=== PATIENT | female | born 1985 | race Caucasian/White ===

== ENCOUNTER 2018-02-15 18:33 | Emergency (ER) | payer MEDICAID, SELFPAY ==
[2018-02-15 18:42] VITALS: BP 138/81; PULSE 109; RESP 16; TEMP 36.9; O2SAT 7
[2018-02-15] MEDS: Doxycycline Hyclate 100 MG CAP PO (19:53)
--- NOTE | 2018-02-15 19:59 | ED.GENADUL_ITS ---
Disposition Clinical Impression: Abscess and cellulitis of right forearm Disposition: HOME Condition: Stable Instructions: Cellulitis (ED), Abscess (ED) Additional Instructions: Return immediately if you do not show signs of improvement over the next 48 hours or if you begin running high fevers or have significant worsening of symptoms. Otherwise if you not having worsening of symptoms but have not shown full improvement by the end of your antibiotics please follow-up with your primary care provider for reassessment. Take your antibiotics until fully completed. Prescriptions: Doxycycline [Vibramycin] 100 mg PO BID #14 cap Referrals: Lesley Grace [Primary Care Provider] - 1 week (If not improving at time of completion of antibiotics follow-up with your primary care provider for reassessment.) Medical Decision Making - Medical Decision Making Patient presenting to the emergency department for complaints of redness and swelling to right forearm. Visualization of this area shows a indurated erythematous warm area that is approximately 3 cm in diameter with surrounding mild erythema. This is concerning for abscess with associated cellulitis and patient has given history of MRSA. Bedside ultrasound was utilized and small area of fluid collection just beneath the skin was seen and I do feel that drainage of this area is warranted. Area is very small not deep and does not appear inoculated and so I feel that 18-gauge needle drainage is appropriate. Did discuss with patient risks versus benefits of I&D and she agreed to having procedure performed. Skin was anesthetized with 2% lidocaine and 1.5 mL's were injected locally. Once appropriate anesthetic level was achieved skin was re- scrubbed with Betadine and 18-gauge of was placed into highest area of fluctuance. Patient had minimal purulence with blood noted no ability to express any further pus which was expected given only small area seen underneath the skin. Patient tolerated procedure appropriately with minimal drainage and no complications noted. Patient placed upon doxycycline for MRSA coverage and Bactrim not used because patient has been on Bactrim multiple times in the past for similar issues and also is on lisinopril and to make because elevated potassium. Patient was encouraged to return if not showing signs of improvement over 48 hours otherwise to follow-up with her primary care provider if not improved at the end of anabolic therapy. Patient prescribed 1 week of antibiotics. After discussion of diagnosis and plan of care with patient patient agreed and stated no further needs, questions, or concerns at this time. History of Present Illness - General Chief complaint: RashLesion Stated complaint: UNKNOWN Time Seen by Provider: 02/15/18 19:34 Source: patient, RN notes reviewed Mode of arrival: ambulatory Limitations: no limitations - History of Present Illness Initial comments: Patient reports 2 days ago she noticed a reddened area just above her right elbow. She states that she has previously had cellulitis and abscess with MRSA. She denies any injury or trauma to this area, any weeping or drainage, any fever or chills. She does state over the past 24 hours she has noted secondary redness spreading around the initial area. Onset/Timin -: days(s) Location: right, upper extremity Severity scale (1-10): 7 Quality: burning, aching Consistency: constant Improves with: none Worsens with: none Associated Symptoms: denies other symptoms Treatments Prior to Arrival: none - Related Data Lisinopril 40 mg PO DAILY 01/22/13 Metoprolol CR [Toprol Xl] 1 tab PO DAILY 01/21/14 Omeprazole 2 tab PO DAILY 04/12/14 Clonazepam [Klonopin] 2 mg PO PRN PRN tab-cap 11/04/14 Prochlorperazine Maleate 10 mg PO Q8H PRN #90 tab-cap 11/04/14 Ibuprofen 600 mg PO Q6H PRN #20 tablet 10/19/17 DULoxetine [Cymbalta] 30 mg PO DAILY 11/09/17 Thiamine Mononitrate [Vitamin B-1] 100 mg PO DAILY 11/09/17 Doxycycline [Vibramycin] 100 mg PO BID #14 cap 02/15/18 Allergies Allergy/AdvReac Type Severity Reaction Status Date / Time hydrocodone bitartrate AdvReac increases Unverified 02/15/18 18:45 [From Vicodin] Resp rate Review of Systems Constitutional: denies: chills, fever Respiratory: no symptoms reported Cardiovascular: denies: chest pain Skin: as per HPI Comment: All other systems reviewed and negative Past Medical History - Past Medical History Medical history: asthma, GERD, hypertension Migraines Surgical history: bilateral tubal ligation, hysterectomy, other (uterine ablation for endometriosis) Family history: cancer, diabetes, hypertension - Social History Smoking status: current everyday smoker Alcohol use: rarely Drug use: none Living Situation: lives with family General Exam - General Limitations: no limitations General appearance: alert, in no apparent distress - Respiratory Respiratory exam: Absent: respiratory distress - Cardiovascular Cardiovascular Exam: Present: regular rate, normal rhythm - Expanded Upper Extremity Exam Right Shoulder Exam: Present: normal inspection, full ROM Upper Arm exam: Present: full ROM, tenderness (To palpation of area of redness) , erythema (Patient has area of indurated erythema to the posterior aspect of the right upper arm with surrounding mild erythema.) Elbow exam: Present: full ROM Forearm Wrist exam: Present: normal inspection, full ROM Course Vital Signs - 24 hr 02/15/18 18:42 Temperature 36.9 C Pulse 109 H Respiratory 16 Rate Blood Pressure 138/81 Pulse Oximetry 7 L
== END 2018-02-15 20:19 | disposition home or self-care (01) ==
PROVIDERS: Emergency Provider Physician Assistant; PCP Nurse Practitioner Family
DX: L02.413 Cutaneous abscess of right upper limb (principal); L03.113 Cellulitis of right upper limb; Z86.14 Personal history of Methicillin resistant Staphylococcus aureus infection; I10 Essential (primary) hypertension
CPT/HCPCS: 10160; 99283

== ENCOUNTER 2018-03-05 08:07 | Emergency (ER) | payer MEDICAID, SELFPAY ==
[2018-03-05] VITALS (33 sets, daily range): BP systolic 124–139; BP diastolic 84–125; PULSE 63–90; RESP 16; TEMP 36.7; O2SAT 93–98
[2018-03-05] MEDS: Lactated Ringers 500 ML IV (09:02)
[2018-03-05] MEDS: Ketorolac 15 MG/ML VIAL IVP (09:02)
[2018-03-05] MEDS: diphenhydrAMINE 50 MG/ML VIAL 25 MG IVP (10:24)
[2018-03-05] MEDS: Prochlorperazine 10 MG/2 ML VIAL IVP (10:25)
--- NOTE | 2018-03-05 11:23 | ED.GENADUL_ITS ---
Disposition Clinical Impression: Headache Disposition: HOME Instructions: General Headache (ED) Additional Instructions: Please follow-up with your primary care physician and neurology. Return to the emergency department immediately for any worsening or new concerning symptoms. Referrals: Lesley Grace [Primary Care Provider] - Tiffani Benton MD [ [facility] STAFF PHYSICIAN] - Medical Decision Making - Medical Decision Making 9:30 --33-year-old female with history of chronic migraines, here with headache consistent with prior severe migraines. Neuro intact. Plan to give Toradol, Compazine and Benadryl. Patient refused Compazine and Benadryl. Will treat initially with Toradol and reassess. 10:30 --patient reassessed after Toradol and notes no significant relief of pain. Patient declines occipital block. Patient agreeable to Compazine and Benadryl. 12:20 --patient reassessed and notes complete resolution of symptoms. Headache resolved. Vision normal. Feels much better and is requesting discharge. Patient advised to follow-up with neurology and to return here should she have any worsening or new concerning symptoms. Patient verbalized understanding of discharge instructions. History of Present Illness - General Chief complaint: Headache Stated complaint: HEADACHE Time Seen by Provider: 03/05/18 08:35 Source: patient, RN notes reviewed Mode of arrival: ambulatory Limitations: no limitations - History of Present Illness Initial comments: 33-year-old female with multiple medical problems including chronic intermittent headaches, borderline personality disorder, anxiety depression, presents with chief complaint of headache. Headache is typical of chronic intermittent migraines. Headache is severe. Headache persisted for 3 weeks. Headache localized diffusely but worse on the left side. No associated numbness or weakness. No neck stiffness or pain. No fevers. She does note that her left face about her eye feels swollen today and that she has had some blurred vision in that eye. - Related Data Lisinopril 40 mg PO DAILY 01/22/13 Metoprolol CR [Toprol Xl] 1 tab PO DAILY 01/21/14 Omeprazole 2 tab PO DAILY 04/12/14 Clonazepam [Klonopin] 2 mg PO PRN PRN tab-cap 11/04/14 Prochlorperazine Maleate 10 mg PO Q8H PRN #90 tab-cap 11/04/14 Ibuprofen 600 mg PO Q6H PRN #20 tablet 10/19/17 DULoxetine [Cymbalta] 30 mg PO DAILY 11/09/17 Thiamine Mononitrate [Vitamin B-1] 100 mg PO DAILY 11/09/17 Allergies Allergy/AdvReac Type Severity Reaction Status Date / Time hydrocodone bitartrate AdvReac increases Unverified 02/15/18 18:45 [From Vicodin] Resp rate Review of Systems Constitutional: denies: chills, fever Eyes: as per HPI. denies: eye pain Cardiovascular: denies: chest pain Gastrointestinal: denies: abdominal pain Neurological: headache Past Medical History - Past Medical History Medical history: asthma, GERD, hypertension Migraines Surgical history: bilateral tubal ligation, hysterectomy, other (uterine ablation for endometriosis) Family history: cancer, diabetes, hypertension - Social History Alcohol use: none Drug use: none General Exam - General Limitations: no limitations General appearance: alert, in no apparent distress - Eye Eye exam: Present: PERRL, EOMI, periorbital swelling (Mild left) - ENT ENT exam: Present: normal orophraynx, mucous membranes dry, mucous membranes moist - Neck Neck exam: Absent: meningismus - Respiratory Respiratory exam: Present: normal lung sounds bilaterally - Cardiovascular Cardiovascular Exam: Present: regular rate, normal rhythm, normal heart sounds - GI/Abdominal GI/Abdominal exam: Present: soft. Absent: distended, tenderness - Neurological Exam Neurological exam: Present: alert, CN II-XII intact. Absent: altered, motor sensory deficit - Psychiatric Psychiatric exam: Present: anxious - Skin Skin exam: Present: warm, dry, intact Course Vital Signs - 24 hr 03/05/18 08:18 Temperature 36.7 C Pulse 90 Respiratory 16 Rate Blood Pressure 126/106 Pulse Oximetry 95
== END 2018-03-05 12:30 | disposition home or self-care (01) ==
PROVIDERS: Emergency Provider Student in an Organized Health Care Education/Training Program; PCP Nurse Practitioner Family
DX: R51 Headache (principal); H53.8 Other visual disturbances; I10 Essential (primary) hypertension
CPT/HCPCS: 96361; 96374; 96375; 99284; J0780; J1200; J1885

== ENCOUNTER 2018-05-10 13:23 | Outpatient (RCR) | payer MEDICAID, SELFPAY ==
--- NOTE | 2018-05-10 13:24 | COCO.CNN ---
Primary Reason for Visit Financial (loss of a job) Referral to Care Coordination Referral to Care Coordination: Yes Type: Other ([facility]hab, [facility]) Referral to Services: No - Referral From Referral From: Self Care Plan - Plan of Care Assessment/Background: Aydee came into the office becasue she is strugging with lossing her job. I encouraged her to go to [facility] and update her information there. I will reach out to Rosendo Ramsay and see if he will see her boys. SHe is activly working with Rosangela at [facility]. We spent about 60 minutes talking about what is going on in her life. Plan of Care: as needed and I will call with avalible therapist SMORTIZ Self Management Plan Complete?: Yes (action plan ) At this Visit: [place] [facility], [employer]
--- NOTE | 2018-05-10 13:30 | PDOC.CNN_ITS ---
Primary Reason for Visit Financial (loss of a job) Referral to Care Coordination Referral to Care Coordination: Yes [facility], [facility]) Referral to Services: No - Referral From Referral From: Self Care Plan - Plan of Care Assessment/Background: Aydee came into the office becasue she is strugging with lossing her job. I encouraged her to go to [facility] and update her information there. I will reach out to Rosendo Ramsay and see if he will see her boys. SHe is activly working with Rosangela at [facility]. We spent about 60 minutes talking about what is going on in her life. Plan of Care: as needed and I will call with avalible therapist SMORTIZ Self Management Plan Complete?: Yes (action plan ) At this Visit: [place] [facility], [employer]
== END 2018-06-07 23:59 | disposition home or self-care (01) ==
LOC: COCO 13:23
PROVIDERS: PCP Nurse Practitioner Family; Visit Provider Nurse Practitioner Family
DX: R69 Illness, unspecified (principal)

== ENCOUNTER 2018-05-23 16:47 | Emergency (ER) | payer MEDICAID, SELFPAY ==
[2018-05-23 16:50] VITALS: BP 165/101; PULSE 99; RESP 16; TEMP 36.6; O2SAT 100
--- NOTE | 2018-05-23 17:02 | W.ED.GENAD ---
Discharge Plan Disposition Patient Disposition: HOME Condition: Stable Discharge Details Chief Complaint: Allergic Clinical Impression: Facial swelling Primary Care Provider: Lesley Grace ED Provider: Gilbert Alvarez Home Meds and New Rx's Prescriptions: New prednisone 20 mg tablet 60 mg PO DAILY 5 Days Qty: 15 RF: 0 Continue clonazepam [Klonopin] 0.5 MG tablet 2 mg PO PRN PRNRF: 0 prochlorperazine maleate 10 MG tablet 10 mg PO Q8H PRN Qty: 90 RF: 6 lisinopril 10 MG tablet 40 mg PO DAILY RF: 0 metoprolol succinate 50 MG tablet extended release 24 hr 1 tab PO DAILY RF: 0 omeprazole 20 MG capsule,delayed release(DR/EC) 2 tab PO DAILY RF: 0 thiamine mononitrate (vit B1) [Vitamin B-1 (mononitrate)] 100 MG tablet 100 mg PO DAILY RF: 0 diphenhydramine HCl 25 mg Tablet 25 mg PO Q4H PRNRF: 0 ibuprofen 600 MG tablet 600 mg PO Q6H PRN (Reason: Pain) Qty: 20 RF: 0 Discharge Instructions Additional Instructions: continue to take benadryl as needed, follow dosing instructions on packaging follow up with your primary care provider to discuss if you should have self pay specialist referral if you have persistent vomit or severe difficulty breathing return to the emergency department Medical Decision Making Pt states her face became diffusely swollen last night, has been taking benadryl and swelling impvored and came here today to have it evaluated as she states she couldn't get in to see pcp. She has mild swelling bilateral periorbits and of cheeks, normal posterior oropharynx with midline uvula and no respiratory or gi symptoms. She is not aware of any new meds or detergents. No evidence of anaphylaxis, is swallowing and speaking in full sentences. Will start her on prednisone, advised f/u with pcp and return precatuions given. Normal extraoculars without pain so doubt orbital cellulitis Differential Diagnosis local skin reaction, allergic reaction HPI General Mode of arrival: ambulatory. Date/Time Provider Initiated Documentation: 05/23/18 16:50. Limitations to Documentation: no limitations. Information obtained by: patient. History of Present Illness 33 year old F presents to the emergency department with the chief complaint of face swelling, described as moderate, and is localized to the face. Patient reports no radiation. Patient started experiencing this day(s) (1) and it has been other (improving). Patient notes no other symptoms.. Patient did receive the following treatments prior to arrival, other (benadryl) Related Data Home Medications Medication Instructions Recorded Confirmed lisinopril 40 mg PO DAILY 01/22/13 05/23/18 metoprolol succinate 1 tab PO DAILY 01/21/14 05/23/18 omeprazole 2 tab PO DAILY 04/12/14 05/23/18 clonazepam [Klonopin] 2 mg PO PRN PRN tab-cap 11/04/14 05/23/18 prochlorperazine maleate 10 mg PO Q8H PRN #90 tab-cap 11/04/14 05/23/18 ibuprofen 600 mg PO Q6H PRN #20 tablet 10/19/17 05/23/18 thiamine mononitrate (vit B1) 100 mg PO DAILY 11/09/17 05/23/18 [Vitamin B-1 (mononitrate)] diphenhydramine HCl 25 mg PO Q4H PRN 05/23/18 05/23/18 prednisone 60 mg PO DAILY 5 Days #15 tab 05/23/18 Previous Rx's Medication Instructions Recorded ibuprofen 600 mg PO Q6H PRN #20 tablet 10/19/17 prednisone 60 mg PO DAILY 5 Days #15 tab 05/23/18 Allergies Allergy/AdvReac Type Severity Reaction Status Date / Time hydrocodone bitartrate AdvReac increases Unverified 05/23/18 16:54 [From Vicodin] Resp rate General Stated Complaint: Allergic PIYUSH: 3 Review of Systems Review of Systems All systems reviewed & are unremarkable except as noted in HPI and below Constitutional Denies chills and Denies fever(s) Eyes Denies loss of vision ENT Denies change in voice Cardiovascular Denies chest pain and Denies dyspnea Respiratory Denies dyspnea Gastrointestinal Denies abdominal pain, Denies nausea and Denies vomiting Genitourinary Denies dysuria Musculoskeletal Denies joint swelling Integumentary/Breasts Denies rash Neurologic Denies loss of vision Allergic/Immunologic Denies urticaria PFSH Family History Mother Diabetes Headache Father Headache Sister Headache Son Headache Medical History Asthma Borderline personality disorder Depression GERD (gastroesophageal reflux disease) HTN (hypertension) MRSA (methicillin resistant staph aureus) culture positive Migraine PTSD (post-traumatic stress disorder) Social History Smoking/Tobacco Use Status: Former Tobacco Use Surgical History Endometrial Ablation (~2009) Ligation of fallopian tube Tonsillectomy and adenoidectomy repair of r hand laceration Exam Const General: no acute distress Orientation: alert [facility] Head: normocephalic Ears: external ears normal General nose exam: external nose normal Mouth: moist mucous membranes Eyes General: appearance normal, both eyes and all related structures Neck Neck: normal visual inspection Resp Effort & Inspection: normal respiratory effort and able to speak in complete sentences Cardio Rate: regular rate Skin General skin exam: no rashes or lesions noted Neuro General: alert and oriented x3 Extrem General: normal to inspection Psych Mental Status: mental status grossly normal Course Vital Signs Temperature 36.6 C 05/23/18 16:50 Pulse 99 H 05/23/18 16:50 Respiratory Rate 16 05/23/18 16:50 Blood Pressure 165/101 H 05/23/18 16:50 Pulse Oximetry 100 05/23/18 16:50 Temperature 36.6 C 05/23/18 16:50 Temperature Source Temporal Artery Scan 05/23/18 16:50 Pulse 99 H 05/23/18 16:50 Respiratory Rate 16 05/23/18 16:50 Respiratory Effort Non-Labored 05/23/18 16:52 Blood Pressure 165/101 H 05/23/18 16:50 Blood Pressure Position Sitting 05/23/18 16:50 Pulse Oximetry 100 05/23/18 16:50 Oxygen Delivery Method Room Air 05/23/18 16:50 Oxygen Flow Rate 0 05/23/18 16:50 Pain Level 10 05/23/18 16:50
--- NOTE | 2018-05-23 17:08 | ED.GENADUL_ITS ---
Discharge Plan Disposition Patient Disposition: HOME Condition: Stable Discharge Details Chief Complaint: Allergic Clinical Impression: Facial swelling Primary Care Provider: Lesley Grace ED Provider: Gilbert Alvarez Home Meds and New Rx's Prescriptions: New prednisone 20 mg tablet 60 mg PO DAILY 5 Days Qty: 15 RF: 0 Continue clonazepam [Klonopin] 0.5 MG tablet 2 mg PO PRN PRNRF: 0 prochlorperazine maleate 10 MG tablet 10 mg PO Q8H PRN Qty: 90 RF: 6 lisinopril 10 MG tablet 40 mg PO DAILY RF: 0 metoprolol succinate 50 MG tablet extended release 24 hr 1 tab PO DAILY RF: 0 omeprazole 20 MG capsule,delayed release(DR/EC) 2 tab PO DAILY RF: 0 thiamine mononitrate (vit B1) [Vitamin B-1 (mononitrate)] 100 MG tablet 100 mg PO DAILY RF: 0 diphenhydramine HCl 25 mg Tablet 25 mg PO Q4H PRNRF: 0 ibuprofen 600 MG tablet 600 mg PO Q6H PRN (Reason: Pain) Qty: 20 RF: 0 Discharge Instructions Additional Instructions: continue to take benadryl as needed, follow dosing instructions on packaging follow up with your primary care provider to discuss if you should have piercer referral if you have persistent vomit or severe difficulty breathing return to the emergency department Medical Decision Making Pt states her face became diffusely swollen last night, has been taking benadryl and swelling impvored and came here today to have it evaluated as she states she couldn't get in to see pcp. She has mild swelling bilateral periorbits and of cheeks, normal posterior oropharynx with midline uvula and no respiratory or gi symptoms. She is not aware of any new meds or detergents. No evidence of anaphylaxis, is swallowing and speaking in full sentences. Will start her on prednisone, advised f/u with pcp and return precatuions given. Normal extraoculars without pain so doubt orbital cellulitis Differential Diagnosis local skin reaction, allergic reaction HPI General Mode of arrival: ambulatory . Date/Time Provider Initiated Documentation: 05/23/18 16:50 . Limitations to Documentation: no limitations . Information obtained by: patient . History of Present Illness 33 year old F presents to the emergency department with the chief complaint of face swelling, described as moderate, and is localized to the face. Patient reports no radiation. Patient started experiencing this day(s) (1) and it has been other (improving). Patient notes no other symptoms.. Patient did receive the following treatments prior to arrival, other (benadryl ) Related Data Home Medications Medication Instructions Recorded Confirmed lisinopril 40 mg PO DAILY 01/22/13 05/23/18 metoprolol succinate 1 tab PO DAILY 01/21/14 05/23/18 omeprazole 2 tab PO DAILY 04/12/14 05/23/18 clonazepam [Klonopin] 2 mg PO PRN PRN tab-cap 11/04/14 05/23/18 prochlorperazine maleate 10 mg PO Q8H PRN #90 tab-cap 11/04/14 05/23/18 ibuprofen 600 mg PO Q6H PRN #20 tablet 10/19/17 05/23/18 thiamine mononitrate (vit B1) 100 mg PO DAILY 11/09/17 05/23/18 [Vitamin B-1 (mononitrate)] diphenhydramine HCl 25 mg PO Q4H PRN 05/23/18 05/23/18 prednisone 60 mg PO DAILY 5 Days #15 tab 05/23/18 Previous Rx's Medication Instructions Recorded ibuprofen 600 mg PO Q6H PRN #20 tablet 10/19/17 prednisone 60 mg PO DAILY 5 Days #15 tab 05/23/18 Allergies Allergy/AdvReac Type Severity Reaction Status Date / Time hydrocodone bitartrate AdvReac increases Unverified 05/23/18 16:54 [From Vicodin] Resp rate General Stated Complaint: Allergic PIYUSH: 3 Review of Systems Review of Systems All systems reviewed & are unremarkable except as noted in HPI and below Constitutional Denies chills and Denies fever(s) Eyes Denies loss of vision ENT Denies change in voice Cardiovascular Denies chest pain and Denies dyspnea Respiratory Denies dyspnea Gastrointestinal Denies abdominal pain, Denies nausea and Denies vomiting Genitourinary Denies dysuria Musculoskeletal Denies joint swelling Integumentary/Breasts Denies rash Neurologic Denies loss of vision Allergic/Immunologic Denies urticaria PFSH Family History Mother Diabetes Headache Father Headache Sister Headache Son Headache Medical History Asthma Borderline personality disorder Depression GERD (gastroesophageal reflux disease) HTN (hypertension) MRSA (methicillin resistant staph aureus) culture positive Migraine PTSD (post-traumatic stress disorder) Social History Smoking/Tobacco Use Status: Former Tobacco Use Surgical History Endometrial Ablation (~2009) Ligation of fallopian tube Tonsillectomy and adenoidectomy repair of r hand laceration Exam Const General: no acute distress Orientation: alert [facility] Head: normocephalic Ears: external ears normal General nose exam: external nose normal Mouth: moist mucous membranes Eyes General: appearance normal, both eyes and all related structures Neck Neck: normal visual inspection Resp Effort & Inspection: normal respiratory effort and able to speak in complete sentences Cardio Rate: regular rate Skin General skin exam: no rashes or lesions noted Neuro General: alert and oriented x3 Extrem General: normal to inspection Psych Mental Status: mental status grossly normal Course Vital Signs Temperature 36.6 C 05/23/18 16:50 Pulse 99 H 05/23/18 16:50 Respiratory Rate 16 05/23/18 16:50 Blood Pressure 165/101 H 05/23/18 16:50 Pulse Oximetry 100 05/23/18 16:50 Temperature 36.6 C 05/23/18 16:50 Temperature Source Temporal Artery Scan 05/23/18 16:50 Pulse 99 H 05/23/18 16:50 Respiratory Rate 16 05/23/18 16:50 Respiratory Effort Non-Labored 05/23/18 16:52 Blood Pressure 165/101 H 05/23/18 16:50 Blood Pressure Position Sitting 05/23/18 16:50 Pulse Oximetry 100 05/23/18 16:50 Oxygen Delivery Method Room Air 05/23/18 16:50 Oxygen Flow Rate 0 05/23/18 16:50 Pain Level 10 05/23/18 16:50
[2018-05-23 17:13] VITALS: BP 160/98; PULSE 99; RESP 16; TEMP 36.6; O2SAT 100
== END 2018-05-23 17:14 | disposition home or self-care (01) ==
PROVIDERS: Emergency Provider Emergency Medicine; PCP Nurse Practitioner Family
DX: R22.0 Localized swelling, mass and lump, head (principal); I10 Essential (primary) hypertension
CPT/HCPCS: 99283

== ENCOUNTER 2018-06-21 10:28 | Emergency (ER) | payer MEDICAID, SELFPAY ==
[2018-06-21 10:48] VITALS: PULSE 124; RESP 18; TEMP 36.2; O2SAT 98
--- NOTE | 2018-06-21 11:06 | W.ED.GENAD ---
Discharge Plan Disposition Patient Disposition: HOME Discharge Details Chief Complaint: Allergic Clinical Impression: Urticaria Primary Care Provider: Lesley Grace ED Provider: Magy Lozano Home Meds and New Rx's Prescriptions: New prednisone 20 mg tablet 40 mg PO DAILY Qty: 8 RF: 0 Continued clonazepam [Klonopin] 0.5 MG tablet 2 mg PO PRN PRNRF: 0 prochlorperazine maleate 10 MG tablet 10 mg PO Q8H PRN Qty: 90 RF: 6 lisinopril 10 MG tablet 40 mg PO DAILY RF: 0 metoprolol succinate 50 MG tablet extended release 24 hr 1 tab PO DAILY RF: 0 omeprazole 20 MG capsule,delayed release(DR/EC) 2 tab PO DAILY RF: 0 thiamine mononitrate (vit B1) [Vitamin B-1 (mononitrate)] 100 MG tablet 100 mg PO DAILY RF: 0 diphenhydramine HCl 25 mg Tablet 25 mg PO Q4H PRNRF: 0 ibuprofen 600 MG tablet 600 mg PO Q6H PRN (Reason: Pain) Qty: 20 RF: 0 Discharge Instructions Instructions: Urticaria (ED) Additional Instructions: Encourage hydration. You may try hydrocortisone cream to help with itch. Please take steroids daily as prescribed. Please follow-up with primary care next week if symptoms persist. If you develop shortness of breath, wheezing, difficulty breathing, swelling of the throat or other new/worsening symptoms please seek care urgently once again Referrals: Lesley Grace [Primary Care Provider] - Medical Decision Making Patient is 33-year-old female history of asthma, hypertension, GERD, migraines, PTSD, borderline personality disorder. Patient is also had multiple issues with skin eruptions historically. She is presenting today with chief complaint of urticarial rash initially began 3 days ago. States that the rashes been migratory predominantly on face, chest, under the breast and a bilateral upper extremities. Rash is blanchable. Reports this is very itchy. Has been taking Benadryl without relief. Denies any shortness of breath or difficulty breathing. Feels that my tongue is swollen. No new exposures that she is aware of. She does have upcoming allergy testing at [facility] for previous skin eruptions and persistent issues with the skin on her hands On exam, the patient has appears consistent with an urticarial rash on the face, anterior neck, chest, upper extremities. This does seem to spare her back and lower extremities as well as her abdomen. Patient does appear excoriated and is clearly itching while I am in the room with her. She has been endorsing some tongue swelling but I am unable to appreciate this on exam. I not see any swelling of the posterior oropharynx. She is breathing unlabored. No wheezes or stridor. Lung sounds are clear. Has a symptoms have been ongoing over the past 3 days despite [id number] management, plan to treat the patient with steroids. She has been on steroids previously for skin issues but states that she has not been on steroids in the past several months. Advised hydrocortisone cream to help with itching. We discussed new/worsening symptoms and when to seek care urgently once again. I advised she keep her upcoming allergy testing. I also advised follow-up with primary care if symptoms are not improving. All of her questions and concerns were addressed and she is in agreement this plan HPI General Mode of arrival: ambulatory. Date/Time Provider Initiated Documentation: 06/21/18 10:59. Limitations to Documentation: no limitations. Information obtained by: patient. History of Present Illness 33 year old F presents to the emergency department with the chief complaint of hives, described as severe and similar to prior episodes, with intensity rated at 10. Quality is described as other (itching), and is localized to the face, neck, chest, abdomen, left, right and upper extremity. Patient started experiencing this day(s) and it has been constant. No relieving factors improve symptom(s), No exacerbating factors reported . Patient notes rash; denies chest pain, cough, fever/chills, headaches, loss of appetite and nausea/vomiting. Patient did receive the following treatments prior to arrival, other (Benadryl) Related Data Home Medications Medication Instructions Recorded Confirmed lisinopril 40 mg PO DAILY 01/22/13 05/23/18 metoprolol succinate 1 tab PO DAILY 01/21/14 05/23/18 omeprazole 2 tab PO DAILY 04/12/14 05/23/18 clonazepam [Klonopin] 2 mg PO PRN PRN tab-cap 11/04/14 05/23/18 prochlorperazine maleate 10 mg PO Q8H PRN #90 tab-cap 11/04/14 05/23/18 ibuprofen 600 mg PO Q6H PRN #20 tablet 10/19/17 05/23/18 thiamine mononitrate (vit B1) 100 mg PO DAILY 11/09/17 05/23/18 [Vitamin B-1 (mononitrate)] diphenhydramine HCl 25 mg PO Q4H PRN 05/23/18 05/23/18 prednisone 40 mg PO DAILY #8 tab 06/21/18 Previous Rx's Medication Instructions Recorded ibuprofen 600 mg PO Q6H PRN #20 tablet 10/19/17 prednisone 40 mg PO DAILY #8 tab 06/21/18 Allergies Allergy/AdvReac Type Severity Reaction Status Date / Time hydrocodone bitartrate AdvReac increases Unverified 06/21/18 10:53 [From Vicodin] Resp rate General Stated Complaint: Allergic PIYUSH: 3 Review of Systems Constitutional Reports as per HPI and Denies headache(s) Eyes Reports as per HPI, Denies eye discharge and Denies irritation ENT Denies headache(s) Cardiovascular Reports as per HPI, Denies chest pain and Denies dyspnea Respiratory Denies dyspnea Gastrointestinal Reports as per HPI, Denies abdominal pain, Denies change in bowel habits, Denies nausea and Denies vomiting Integumentary/Breasts Reports as per HPI and Reports rash Neurologic Denies headache(s) [facility] Medical History Asthma Borderline personality disorder Depression GERD (gastroesophageal reflux disease) HTN (hypertension) MRSA (methicillin resistant staph aureus) culture positive Migraine PTSD (post-traumatic stress disorder) Surgical History Endometrial Ablation (~2009) Ligation of fallopian tube Tonsillectomy and adenoidectomy repair of r hand laceration Family History Mother Diabetes Headache Father Headache Sister Headache Son Headache Social History Smoking/Tobacco Use Status: Former Tobacco Use Exam Const General: cooperative, healthy appearing, comfortable, no acute distress, well developed and well groomed Nutritional Appearance: well nourished and obese Orientation: alert and awake [facility] Head: normal to inspection, normocephalic and atraumatic Ears: hearing grossly normal bilaterally, external ears normal and TM's normal bilaterally General nose exam: external nose normal and nares normal Face and sinus: abnormal facial exam (rash as below), sinuses nontender and face symmetric Mouth: oral mucosae normal, lip normal, tongue normal, oropharynx normal and moist mucous membranes Teeth and gingiva: dentition normal Throat: posterior oropharynx normal, tonsils normal and uvula midline Eyes General: appearance normal, both eyes and all related structures Neck Neck: normal visual inspection, full ROM, no lymphadenopathy and no meningeal signs Resp Effort & Inspection: normal respiratory effort, able to speak in complete sentences and no respiratory distress Auscultation: clear to auscultation bilaterally, no rales, no rhonchi and no wheezes Cardio Rate: regular rate Rhythm: regular rhythm Heart Sounds: S1 normal and S2 normal Skin General skin exam: dry skin, excoriation(s) and other (patient has urticarial rash to face, neck, chest, BUE) Neuro General: alert and awake Cognition: normal cognition Speech: speech normal Gait: normal gait Psych Appearance: grossly normal and well kempt Mental Status: mental status grossly normal Speech and Movement: speech and movement normal Course Vital Signs Temperature 36.2 C L 06/21/18 10:48 Pulse 124 H 06/21/18 10:48 Respiratory Rate 18 06/21/18 10:48 Pulse Oximetry 98 06/21/18 10:48 Temperature 36.2 C L 06/21/18 10:48 Temperature Source Skin 06/21/18 10:48 Pulse 124 H 06/21/18 10:48 Respiratory Rate 18 06/21/18 10:48 Respiratory Effort 06/21/18 10:51 Pulse Oximetry 98 06/21/18 10:48 Pain Level 10 06/21/18 10:48 Comment 06/21/18 10:48
--- NOTE | 2018-06-21 11:09 | ED.GENADUL_ITS ---
Discharge Plan Disposition Patient Disposition: HOME Discharge Details Chief Complaint: Allergic Clinical Impression: Urticaria Primary Care Provider: Lesley Grace ED Provider: Magy Lozano Home Meds and New Rx's Prescriptions: New prednisone 20 mg tablet 40 mg PO DAILY Qty: 8 RF: 0 Continued clonazepam [Klonopin] 0.5 MG tablet 2 mg PO PRN PRNRF: 0 prochlorperazine maleate 10 MG tablet 10 mg PO Q8H PRN Qty: 90 RF: 6 lisinopril 10 MG tablet 40 mg PO DAILY RF: 0 metoprolol succinate 50 MG tablet extended release 24 hr 1 tab PO DAILY RF: 0 omeprazole 20 MG capsule,delayed release(DR/EC) 2 tab PO DAILY RF: 0 thiamine mononitrate (vit B1) [Vitamin B-1 (mononitrate)] 100 MG tablet 100 mg PO DAILY RF: 0 diphenhydramine HCl 25 mg Tablet 25 mg PO Q4H PRNRF: 0 ibuprofen 600 MG tablet 600 mg PO Q6H PRN (Reason: Pain) Qty: 20 RF: 0 Discharge Instructions Instructions: Urticaria (ED) Additional Instructions: Encourage hydration. You may try hydrocortisone cream to help with itch. Please take steroids daily as prescribed. Please follow-up with primary care next week if symptoms persist. If you develop shortness of breath, wheezing, difficulty breathing, swelling of the throat or other new/worsening symptoms please seek care urgently once again Referrals: Lesley Grace [Primary Care Provider] - Medical Decision Making Patient is 33-year-old female history of asthma, hypertension, GERD, migraines, PTSD, borderline personality disorder. Patient is also had multiple issues with skin eruptions historically. She is presenting today with chief complaint of ur ticarial rash initially began 3 days ago. States that the rashes been migratory predominantly on face, chest, under the breast and a bilateral upper extremities. Rash is blanchable. Reports this is very itchy. Has been taking Benadryl without relief. Denies any shortness of breath or difficulty breathing. Feels that my tongue is swollen. No new exposures that she is aware of. She does have upcoming allergy testing at [facility] for previous skin eruptions and persistent issues with the skin on her hands On exam, the patient has appears consistent with an urticarial rash on the face, anterior neck, chest, upper extremities. This does seem to spare her back and lower extremities as well as her abdomen. Patient does appear excoriated and is clearly itching while I am in the room with her. She has been endorsing some tongue swelling but I am unable to appreciate this on exam. I not see any swelling of the posterior oropharynx. She is breathing unlabored. No wheezes or stridor. Lung sounds are clear. Has a symptoms have been ongoing over the past 3 days despite [id number] management, plan to treat the patient with steroids. She has been on steroids previously for skin issues but states that she has not been on steroids in the past several months. Advised hydrocortisone cream to help with itching. We discussed new/worsening symptoms and when to seek care urgently once again. I advised she keep her upcoming allergy testing. I also advised follow-up with primary care if symptoms are not improving. All of her questions and concerns were addressed and she is in agreement this plan HPI General Mode of arrival: ambulatory . Date/Time Provider Initiated Documentation: 06/21/18 10:59 . Limitations to Documentation: no limitations . Information obtained by: patient . History of Present Illness 33 year old F presents to the emergency department with the chief complaint of hives, described as severe and similar to prior episodes, with intensity rated at 10. Quality is described as other (itching), and is localized to the face, neck, chest, abdomen, left, right and upper extremity. Patient started experiencing this day(s) and it has been constant. No relieving factors improve symptom(s), No exacerbating factors reported . Patient notes rash; denies chest pain, cough, fever/chills, headaches, loss of appetite and nausea/vomiting. Patient did receive the following treatments prior to arrival, other (Benadryl) Related Data Home Medications Medication Instructions Recorded Confirmed lisinopril 40 mg PO DAILY 01/22/13 05/23/18 metoprolol succinate 1 tab PO DAILY 01/21/14 05/23/18 omeprazole 2 tab PO DAILY 04/12/14 05/23/18 clonazepam [Klonopin] 2 mg PO PRN PRN tab-cap 11/04/14 05/23/18 prochlorperazine maleate 10 mg PO Q8H PRN #90 tab-cap 11/04/14 05/23/18 ibuprofen 600 mg PO Q6H PRN #20 tablet 10/19/17 05/23/18 thiamine mononitrate (vit B1) 100 mg PO DAILY 11/09/17 05/23/18 [Vitamin B-1 (mononitrate)] diphenhydramine HCl 25 mg PO Q4H PRN 05/23/18 05/23/18 prednisone 40 mg PO DAILY #8 tab 06/21/18 Previous Rx's Medication Instructions Recorded ibuprofen 600 mg PO Q6H PRN #20 tablet 10/19/17 prednisone 40 mg PO DAILY #8 tab 06/21/18 Allergies Allergy/AdvReac Type Severity Reaction Status Date / Time hydrocodone bitartrate AdvReac increases Unverified 06/21/18 10:53 [From Vicodin] Resp rate General Stated Complaint: Allergic PIYUSH: 3 Review of Systems Constitutional Reports as per HPI and Denies headache(s) Eyes Reports as per HPI, Denies eye discharge and Denies irritation ENT Denies headache(s) Cardiovascular Reports as per HPI, Denies chest pain and Denies dyspnea Respiratory Denies dyspnea Gastrointestinal Reports as per HPI, Denies abdominal pain, Denies change in bowel habits, Denies nausea and Denies vomiting Integumentary/Breasts Reports as per HPI and Reports rash Neurologic Denies headache(s) [facility] Medical History Asthma Borderline personality disorder Depression GERD (gastroesophageal reflux disease) HTN (hypertension) MRSA (methicillin resistant staph aureus) culture positive Migraine PTSD (post-traumatic stress disorder) Surgical History Endometrial Ablation (~2009) Ligation of fallopian tube Tonsillectomy and adenoidectomy repair of r hand laceration Family History Mother Diabetes Headache Father Headache Sister Headache Son Headache Social History Smoking/Tobacco Use Status: Former Tobacco Use Exam Const General: cooperative, healthy appearing, comfortable, no acute distress, well developed and well groomed Nutritional Appearance: well nourished and obese Orientation: alert and awake [facility] Head: normal to inspection, normocephalic and atraumatic Ears: hearing grossly normal bilaterally, external ears normal and TM's normal bilaterally General nose exam: external nose normal and nares normal Face and sinus: abnormal facial exam (rash as below), sinuses nontender and face symmetric Mouth: oral mucosae normal, lip normal, tongue normal, oropharynx normal and moist mucous membranes Teeth and gingiva: dentition normal Throat: posterior oropharynx normal, tonsils normal and uvula midline Eyes General: appearance normal, both eyes and all related structures Neck Neck: normal visual inspection, full ROM, no lymphadenopathy and no meningeal signs Resp Effort & Inspection: normal respiratory effort, able to speak in complete sentences and no respiratory distress Auscultation: clear to auscultation bilaterally, no rales, no rhonchi and no wheezes Cardio Rate: regular rate Rhythm: regular rhythm Heart Sounds: S1 normal and S2 normal Skin General skin exam: dry skin, excoriation(s) and other (patient has urticarial rash to face, neck, chest, BUE) Neuro General: alert and awake Cognition: normal cognition Speech: speech normal Gait: normal gait Psych Appearance: grossly normal and well kempt Mental Status: mental status grossly normal Speech and Movement: speech and movement normal Course Vital Signs Temperature 36.2 C L 06/21/18 10:48 Pulse 124 H 06/21/18 10:48 Respiratory Rate 18 06/21/18 10:48 Pulse Oximetry 98 06/21/18 10:48 Temperature 36.2 C L 06/21/18 10:48 Temperature Source Skin 06/21/18 10:48 Pulse 124 H 06/21/18 10:48 Respiratory Rate 18 06/21/18 10:48 Respiratory Effort 06/21/18 10:51 Pulse Oximetry 98 06/21/18 10:48 Pain Level 10 06/21/18 10:48 Comment 06/21/18 10:48
== END 2018-06-21 11:16 | disposition home or self-care (01) ==
PROVIDERS: Emergency Provider Physician Assistant; PCP Nurse Practitioner Family
DX: L50.9 Urticaria, unspecified (principal); I10 Essential (primary) hypertension
CPT/HCPCS: 99283

== ENCOUNTER 2018-07-01 21:50 | Emergency (ER) | payer MEDICAID, SELFPAY ==
[2018-07-01 22:03] VITALS: BP 170/97; PULSE 90; RESP 18; TEMP 36.8; O2SAT 100
--- NOTE | 2018-07-01 22:10 | ED.GENADUL_ITS ---
Discharge Plan Disposition Patient Disposition: HOME Condition: Good Discharge Details Chief Complaint: EarProblem Clinical Impression: Ruptured eardrum, Otitis media Reason For Visit: right ear pain Primary Care Provider: Lesley Grace ED Provider: Steve Ortega Home Meds and New Rx's Prescriptions: New amoxicillin-pot clavulanate [Augmentin] 875-125 mg tablet 1 tab PO BID 7 Days Qty: 14 RF: 0 No Action clonazepam [Klonopin] 0.5 MG tablet 2 mg PO PRN PRNRF: 0 prochlorperazine maleate 10 MG tablet 10 mg PO Q8H PRN Qty: 90 RF: 6 lisinopril 10 MG tablet 40 mg PO DAILY RF: 0 metoprolol succinate 50 MG tablet extended release 24 hr 1 tab PO DAILY RF: 0 omeprazole 20 MG capsule,delayed release(DR/EC) 2 tab PO DAILY RF: 0 thiamine mononitrate (vit B1) [Vitamin B-1 (mononitrate)] 100 MG tablet 100 mg PO DAILY RF: 0 diphenhydramine HCl 25 mg Tablet 25 mg PO Q4H PRNRF: 0 ibuprofen 600 MG tablet 600 mg PO Q6H PRN (Reason: Pain) Qty: 20 RF: 0 Discharge Instructions Instructions: Ruptured Eardrum (ED), Otitis Media (ED) Additional Instructions: Please take the medication as directed. For your amoxicillin please take 1 pill twice daily. For the drops, please place 10 drops in the affected ear twice daily for 14 days. Please follow-up with the ENT doctor. If you notice any worsening of your symptoms, or any new symptoms such as vomiting, diarrhea, fever, chills, shortness of breath, chest pain, numbness, weakness, or fainting , please return immediately to the emergency department for reevaluation. Please follow up with your primary care provider as soon as possible for reassessment and reevaluation. As always, it was a pleasure participating in your medical care today. Referrals: Lesley Grace [Primary Care Provider] - Medical Decision Making This is a very pleasant 33-year-old female who presents today for evaluation of right ear pain. The patient heard a small pop, and then felt some drainage earlier tonight. She had notable pain. Physical exam demonstrates signs and symptoms and exam consistent with otitis media with rupture. Hearing is decreased on that side most likely secondary to the rupture. Vital signs are stable, no fever, hemodynamically stable. Patient will be given ofloxacin drops secondary to the ruptured component, as well as oral Augmentin. We discussed red flags which to return the patient understands. We have recommended ENT follow-up. We will put him on the list. I have extensively reviewed the treatment plan and discharge instructions with the patient. I have addressed all patient concerns at this time. The patient was made aware of what symptoms to monitor for that would warrant a return to the emergency department. Discussed the plan with the patient, they demonstrate verbal understanding and agreement with our assessment and plan at this time. HPI General Date/Time Provider Initiated Documentation: 07/01/18 21:59 . HPI Narrative: This is a 33-year-old female who presents today for evaluation of right-sided ear pain. The patient states that last day she has had mild ear pain on the right, however over the last few hours has notably worsened, she felt and heard a pop, and then had drainage coming out of her right ear. She denies any systemic symptoms of fever or chills. She denies any chest pain, neck pain, neck stiffness or shortness of breath. She has had ear infections in the past but never ruptured before. She does admit to decreased hearing in the right ear after the pop sensation. She has no other complaints at this time. She denies any other modifying factors. She did take Motrin but has had no significant improvement with this. She denies any recent surgeries, pertinent family history, IV or illicit drug use. Related Data Home Medications Medication Instructions Recorded Confirmed lisinopril 40 mg PO DAILY 01/22/13 07/01/18 metoprolol succinate 1 tab PO DAILY 01/21/14 07/01/18 omeprazole 2 tab PO DAILY 04/12/14 07/01/18 clonazepam [Klonopin] 2 mg PO PRN PRN tab-cap 11/04/14 07/01/18 prochlorperazine maleate 10 mg PO Q8H PRN #90 tab-cap 11/04/14 07/01/18 ibuprofen 600 mg PO Q6H PRN #20 tablet 10/19/17 07/01/18 thiamine mononitrate (vit B1) 100 mg PO DAILY 11/09/17 07/01/18 [Vitamin B-1 (mononitrate)] diphenhydramine HCl 25 mg PO Q4H PRN 05/23/18 07/01/18 amoxicillin-pot clavulanate 1 tab PO BID 7 Days #14 tab 07/01/18 [Augmentin] Previous Rx's Medication Instructions Recorded ibuprofen 600 mg PO Q6H PRN #20 tablet 10/19/17 amoxicillin-pot clavulanate 1 tab PO BID 7 Days #14 tab 07/01/18 [Augmentin] Allergies Allergy/AdvReac Type Severity Reaction Status Date / Time hydrocodone bitartrate AdvReac increases Unverified 07/01/18 22:06 [From Vicodin] Resp rate General Stated Complaint: EarProblem PIYUSH: 4 Review of Systems Review of Systems All systems reviewed & are unremarkable except as noted in HPI and below PFSH Family History Mother Diabetes Headache Father Headache Sister Headache Son Headache Social History Smoking/Tobacco Use Status: Former Tobacco Use Exam Narrative Exam Narrative: 1.Const: Well-nourished, Well-developed, appearing stated age 2.Eyes: PERRL, no conjunctival injection, and symmetrical lids. 3.ENT: Atraumatic external nose and ears. Moist MM. Neck: Symmetric, trachea midline, No thyromegaly. The patient's left TM is normal. There is of a small amount of serous fluid behind it, but no evidence of purulent effusion. Patient's right tympanic membrane demonstrates notable purulent effusion, as well as rupture of the anterior component. There is a small amount of drainage, with some associated otitis externa as well. No active bleeding. Sensation is decreased in the right. 4.CVS: +S1/S2, No murmurs or gallops. Peripheral pulses 2+ and equal in all extremities. Brisk capillary refill in all extremities. 5.RESP: Unlabored respiratory effort. Clear to auscultation bilaterally. No wheezes rales or rhonchi 6.GI: Soft, Nontender/Nondistended, No hepatosplenomegaly. No guarding or re bound. 7.MSK: Normocephalic/Atraumatic, Extremities w/o deformity or ttp No cyanosis or clubbing, Normal movement of all extremities 8.Skin: Warm, Dry. No rashes or lesions. 9.Neuro: supervisor loading II-XII grossly intact. Sensation grossly intact, no focal neurologic deficits. 10.Psych: (AAO) x3. Appropriate mood and affect Course Vital Signs Temperature 36.8 C 07/01/18 22:03 Pulse 90 07/01/18 22:03 Respiratory Rate 18 07/01/18 22:03 Blood Pressure 170/97 H 07/01/18 22:03 Pulse Oximetry 100 07/01/18 22:03 Temperature 36.8 C 07/01/18 22:03 Temperature Source Temporal Artery Scan 07/01/18 22:03 Pulse 90 07/01/18 22:03 Respiratory Rate 18 07/01/18 22:03 Blood Pressure 170/97 H 07/01/18 22:03 Blood Pressure Position Sitting 07/01/18 22:03 Pulse Oximetry 100 07/01/18 22:03 Oxygen Delivery Method Room Air 07/01/18 22:03 Oxygen Flow Rate 0 07/01/18 22:03 Pain Level 10 07/01/18 22:03
[2018-07-01] MEDS: Acetaminophen 500 MG TAB 1000 MG PO (22:39)
[2018-07-01] MEDS: Amoxicillin 875/Clav. 125 TAB PO ×2 (22:39)
[2018-07-01] MEDS: Ofloxacin 0.3% OTIC 5 ML BTL AD (22:40)
== END 2018-07-01 22:49 | disposition home or self-care (01) ==
PROVIDERS: Emergency Provider Student in an Organized Health Care Education/Training Program; PCP Nurse Practitioner Family
DX: H66.011 Acute suppurative otitis media with spontaneous rupture of ear drum, right ear (principal); Z87.891 Personal history of nicotine dependence
CPT/HCPCS: 99283

== ENCOUNTER 2018-07-20 16:26 | Emergency (ER) | payer MEDICAID, SELFPAY ==
[2018-07-20] VITALS (37 sets, daily range): BP systolic 149–234; BP diastolic 66–192; PULSE 70–117; RESP 13–28; TEMP 36.7; O2SAT 93–99
--- NOTE | 2018-07-20 17:47 | DI.RAD_ITS ---
SYMPTOM/DIAGNOSIS: LT SIDED CHEST PAIN, R/O ACUTE DISEASE PA AND LATERAL CHEST: Comparison is made with 19 October 2017. The lungs are suboptimally inflated on both views. No focal infiltrates or effusions are seen. The heart size is within normal limits. No pneumothorax is seen. IMPRESSION: No acute abnormality.
--- NOTE | 2018-07-20 17:51 | ED.GENADUL_ITS ---
Discharge Plan Disposition Patient Disposition: HOME Condition: Stable Discharge Details Chief Complaint: Chest Pain Clinical Impression: Chest pain, Accelerated hypertension Reason For Visit: htn and chest pain Primary Care Provider: Lesley Grace ED Provider: Fuad León Home Meds and New Rx's Prescriptions: New hydralazine 10 mg tablet 10 mg PO DAILY Qty: 3 RF: 0 Continued clonazepam [Klonopin] 0.5 MG tablet 2 mg PO PRN PRNRF: 0 prochlorperazine maleate 10 MG tablet 10 mg PO Q8H PRN Qty: 90 RF: 6 lisinopril 10 MG tablet 40 mg PO DAILY RF: 0 metoprolol succinate 50 MG tablet extended release 24 hr 1 tab PO DAILY RF: 0 omeprazole 20 MG capsule,delayed release(DR/EC) 2 tab PO DAILY RF: 0 thiamine mononitrate (vit B1) [Vitamin B-1 (mononitrate)] 100 MG tablet 100 mg PO DAILY RF: 0 diphenhydramine HCl 25 mg Tablet 25 mg PO Q4H PRNRF: 0 ibuprofen 600 MG tablet 600 mg PO Q6H PRN (Reason: Pain) Qty: 20 RF: 0 Discharge Instructions Instructions: Chest Pain (ED), Hypertension (ED) Additional Instructions: Take your regular blood pressure medications as directed. Take the new medication for your blood pressure hydralazine as directed for the next 3 days. You will receive a call from care management regarding a follow-up appointment with a new primary care doctor. Return immediately to the emergency department any worsening or new concerning symptoms. Discharge Data Discharge Date/Time-TO BE ENTERED AT DEPARTURE: 07/20/18 21:14 Discharge Physician: Karolina Mattson Medical Decision Making <Karolina Mattson DO - Last Filed: 07/22/18 02:41> 33-year-old female with a history of hypertension, migraines, anxiety, bipolar, PTSD and obesity who presents with left-sided chest pain and hypertension today. BP at home 160/126. Blood pressure on arrival 184/128. Upon my evaluation, 161/97. Patient appears nontoxic and in no acute distress. Chest nontender. She has no variable deficits. Discussed with patient that her blood pressure is now improved, and chest pain in the setting of elevated blood pressure usually is significant if a blood pressure remains greater than 185/115 with concern for endorgan damage. Although patient is young, she does have a history of hypertension, diabetes. Will check labs, and give a dose of Toradol and reassess. EKG rate of 103, sinus, no acute findings. 1999 --labs and imaging reviewed. Normal white blood cell count, troponin. Chest x-ray negative. D-dimer elevated and CT chest done which was negative for PE. Patient has had multiple blood pressures with systolic in the 170s and diastolic in the 100s-110s. She states her chest pain is improved. Patient has been relaxed in no acute distress and texting on the phone while in the emergency department. Patient given a dose of 10 mg hydralazine and blood pressure now once 154/112. HEART score 1. We will plan on second troponin and will send home with 3 days of 10 mg hydralazine p.o. 2014 -- Case endorsed to Dr. León to follow-up on second troponin and plan for discharge home if negative and blood pressure remained stable or improves. Pt states she feels much better at this time. Medical Records Medical records reviewed: Yes I reviewed the patient's medical records. Imaging Data Radiologic Study: Radiologist's impression: CT Angiography Chest With Contrast EXAM DATE/TIME: 07/20/2018 6:40 PM CLINICAL HISTORY: 33 years old, female; Pain; Chest pain; Patient HX: Lt sided pain elevated d dimer TECHNIQUE: Axial computed tomographic angiography images of the chest with intravenous contrast using CT angiography protocol. Coronal and sagittal reformatted images were created and reviewed. MIP reconstructed images were created and reviewed. CONTRAST: 100 ml of omni 350 administered intravenously. COMPARISON: CT CHEST ABD PELVIS WITH CONTRAST 01/24/2017 10:41 AM FINDINGS: Pulmonary arteries: No acute pulmonary embolus. Aorta: Normal. No aortic aneurysm. No aortic dissection. Other arteries: Left common carotid artery arises from the brachiocephalic trunk. Lungs: Normal. No consolidation. No masses. Pleural space: Normal. No pneumothorax. No pleural effusion. Heart: No cardiomegaly. Lymph nodes: Unremarkable. No enlarged lymph nodes. Bones/joints: Unremarkable. No acute fracture. Soft tissues: Unremarkable. IMPRESSION: No acute pulmonary embolus. XR Chest, 2 Views EXAM DATE/TIME: 07/20/2018 6:26 PM CLINICAL HISTORY: 33 years old, female; Pain; Chest pain; Other: Lt sided chest pain R/O acute disease TECHNIQUE: XR of the chest, 2 views. COMPARISON: CR CHEST 2 VIEWS PA,LAT 10/19/2017 6:56 PM FINDINGS: Lungs: Clear lungs. Pleural space: No pneumothorax. No sizable pleural effusion. Heart/Mediastinum: No cardiomegaly. Bones/joints: Unremarkable. IMPRESSION: Clear lungs. Lab Data Lab results reviewed: Yes I reviewed the patient's lab results. ECG Data Attestation: I personally reviewed and interpreted this ECG (s) as follows: Interpretation: 1710 --rate of 23, sinus tachycardia, no acute ST elevation or depression, TWI in lead III seen in previous, QTC 450. QRS 96. HPI <Karolina Mattson DO - Last Filed: 07/22/18 02:41> General Mode of arrival: ambulatory . Date/Time Provider Initiated Documentation: 07/20/18 17:03 . Limitations to Documentation: no limitations . Information obtained by: patient . HPI Narrative: Patient is a 33-year-old female with a history of borderline personality disorder, bipolar disorder, PTSD, hypertension, chronic fatigue and migraines who presents to the ED with a complaint of chest pain since this morning. Patient states she awoke with elevated bili this morning. Patient states she is felt weak and shaky all day. Patient states the pain is under her left breast, sharp, intermittent, without aggravating or alleviating factors. States the pain is currently 6/10. She denies any associated symptoms of shortness of breath, nausea, vomiting, dizziness, fever, cough, sore throat or ear pain. Patient states her normal blood pressure is 120/70 and today it was 161/106. Patient states she takes metoprolol 50 mg daily and lisinopril 40 mg daily states she took both of these doses today. She states her blood pressure has been elevated for several months and she does not feel that her primary care doctor's office Lesley Grace is managing it properly and she feels that she cannot get an appointment. Related Data Home Medications Medication Instructions Recorded Confirmed lisinopril 40 mg PO DAILY 01/22/13 07/20/18 metoprolol succinate 1 tab PO DAILY 01/21/14 07/20/18 omeprazole 2 tab PO DAILY 04/12/14 07/20/18 clonazepam [Klonopin] 2 mg PO PRN PRN tab-cap 11/04/14 07/20/18 prochlorperazine maleate 10 mg PO Q8H PRN #90 tab-cap 11/04/14 07/20/18 ibuprofen 600 mg PO Q6H PRN #20 tablet 10/19/17 07/20/18 thiamine mononitrate (vit B1) 100 mg PO DAILY 11/09/17 07/20/18 [Vitamin B-1 (mononitrate)] diphenhydramine HCl 25 mg PO Q4H PRN 05/23/18 07/20/18 hydralazine 10 mg PO DAILY #3 tab 07/20/18 Previous Rx's Medication Instructions Recorded ibuprofen 600 mg PO Q6H PRN #20 tablet 10/19/17 hydralazine 10 mg PO DAILY #3 tab 07/20/18 Allergies Allergy/AdvReac Type Severity Reaction Status Date / Time hydrocodone bitartrate AdvReac increases Unverified 07/20/18 17:14 [From Vicodin] Resp rate General Stated Complaint: Chest Pain PIYUSH: 2 Review of Systems <Karolina Mattson DO - Last Filed: 07/22/18 02:41> Review of Systems All systems reviewed & are unremarkable except as noted in HPI and below Constitutional Reports as per HPI, Denies chills and Denies fever(s) Eyes Denies blurry vision ENT Denies dizziness, Denies sore throat and Denies throat swelling Cardiovascular Reports chest pain and Denies dyspnea Respiratory Denies dyspnea Gastrointestinal Denies abdominal pain, Denies diarrhea and Denies vomiting Genitourinary Denies hematuria and Denies dysuria Musculoskeletal Denies back pain and Denies numbness Integumentary/Breasts Denies lesions and Denies rash Neurologic Denies dizziness and Denies numbness Allergic/Immunologic Denies throat swelling PFSH <Karolina Mattson DO - Last Filed: 07/22/18 02:41> Medical History Asthma Borderline personality disorder Depression GERD (gastroesophageal reflux disease) HTN (hypertension) MRSA (methicillin resistant staph aureus) culture positive Migraine PTSD (post-traumatic stress disorder) Surgical History Endometrial Ablation (~2009) Ligation of fallopian tube Tonsillectomy and adenoidectomy repair of r hand laceration Family History Mother Diabetes Headache Father Headache Sister Headache Son Headache Social History Smoking/Tobacco Use Status: Former Tobacco Use alcohol intake: current alcohol intake frequency: holidays/special occasions only substance use type: does not use Exam <Karolina Mattson DO - Last Filed: 07/22/18 02:41> Const General: cooperative, healthy appearing and no acute distress HENMT Head: normal to inspection Ears: hearing grossly normal bilaterally and TM's normal bilaterally Face and sinus: normal facial exam Eyes General: appearance normal, both eyes and all related structures Pupils: PERRL EOM: EOM intact bilaterally Neck Neck: normal visual inspection and No submandibular swelling Lymphatic: no lymphadenopathy noted Chest Chest: normal inspection of the chest and no tenderness Resp Effort & Inspection: normal respiratory effort and able to speak in complete sentences Auscultation: clear to auscultation bilaterally Cardio Rate: regular rate Rhythm: regular rhythm GI Inspection: normal to inspection Palpation: soft, not firm, not rigid and nontender Auscultation: normal bowel sounds Back/Spine/Pelvis Back: no CVA tenderness Skin General skin exam: no rashes or lesions noted Neuro General: alert, awake, oriented x3, moves all extremities and no meningeal signs Cognition: normal cognition Speech: speech normal Motor: muscle tone normal throughout and strength 5/5 throughout Sensory Exam: no sensory deficits noted Extrem General: normal to inspection, full ROM, normal capillary refill, no calf tenderness bilaterally and no edema Psych Appearance: grossly normal Mental Status: mental status grossly normal Speech and Movement: speech and movement normal Affect: normal affect Course <Karolina Mattson DO - Last Filed: 07/22/18 02:41> Vital Signs Temperature 98.1 F 07/20/18 17:08 Pulse 117 H 07/20/18 17:08 Respiratory Rate 16 07/20/18 17:08 Blood Pressure 184/128 H 07/20/18 17:08 Pulse Oximetry 97 07/20/18 17:08 Temperature 98.1 F 07/20/18 17:08 Temperature Source Temporal Artery Scan 07/20/18 17:08 Pulse 117 H 07/20/18 17:08 Respiratory Rate 16 07/20/18 17:26 Respiratory Effort Non-Labored 07/20/18 17:26 Respiratory Depth Normal 07/20/18 17:26 Respiratory Pattern Normal 07/20/18 17:26 Blood Pressure 184/128 H 07/20/18 17:08 Pulse Oximetry 97 07/20/18 17:08 Oxygen Delivery Method Room Air 07/20/18 17:08 Oxygen Flow Rate 0 07/20/18 17:08 Pain Level 6 07/20/18 17:26 Sign Out <Karolina Mattson DO - Last Filed: 07/22/18 02:41> Sign Out Data: Sign Out Comment: follow up on second troponin and blood pressure response to medication Last updated by Karolina Mattson DO at 07/20/18 20:18 Post-Handoff Eval: Patient signed over to me pending second troponin. The troponin is negative. Her blood pressure is at this time about 150/100. Dr. Mattson has written a prescription for hydralazine for the next few days. She has been referred to care management to help get her in to be seen by primary care. Return to the emergency department for any new/worsening chest pain, shortness of breath, neurologic changes, other concerns.
[2018-07-20 18:06] LABS: Abs Immature Grans 0.03 k/cumm (0.0-0.09); Absolute Basophil Count 0.03 k/cumm (0.0-0.2); Absolute Eosinophil Count 0.15 k/cumm (0.0-0.7); Absolute Lymphocyte Count 3.71 k/cumm (1.2-3.4); Absolute Monocyte Count 0.52 k/cumm (0.11-0.7); Absolute Neutrophil Count 4.23 k/cumm (1.2-6.7); Basophils % 0.3; Eosinophils % 1.7; HCT 46.5 % (36.0-46.0); HGB 15.7 g/dL (12.0-15.5); Immature Grans % 0.3; Lymphocytes % 42.8; Mean Corp. HGB Concentration 33.8 g/dL (32.0-36.0); Mean Corpuscular Hemoglobin 31.4 pg (27.0-33.0); Mean Platelet Volume 10.1 fL (8.0-11.0); Neutrophils % 48.9; Platelet Count 333 x1000/uL (130-400); White Blood Cell Count 8.67 k/cumm (4.4-10.8)
[2018-07-20 18:20] LABS: ALT 31 U/L (12-78); AST 19 U/L (15-37); Albumin 3.8 g/dL (3.4-5.0); Alkaline Phosphatase 116 U/L (46-116); Anion Gap 18.1 mmol/L (3-11); BUN 9 mg/dL (7-18); Bilirubin, Total 0.3 mg/dL (0.2-1.0); CO2 26.9 mmol/L (21.0-32.0); CREATININE 1.01 mg/dL (0.55-1.02); Calcium 9.2 mg/dL (8.5-10.1); Chloride 102 mmol/L (98-107); Glucose 114 mg/dL (70-100); Magnesium 1.8 mg/dL (1.8-2.4); Potassium 3.5 mmol/L (3.5-5.1); Sodium 147 mmol/L (136-145); Total Protein 7.7 g/dL (6.4-8.2)
[2018-07-20 18:21] LABS: Troponin I < 0.02 ng/mL (0.00-0.06)
[2018-07-20] MEDS: Ketorolac 30 MG/ML VIAL IVP (18:30)
[2018-07-20 18:33] LABS: D-Dimer 629 ng/mlFEU (<500)
--- NOTE | 2018-07-20 18:39 | DI.CT_ITS ---
SYMPTOM/DIAGNOSIS: LT SIDED CHEST PAIN, ELEVATED D DIMER, ? PE PE CHEST CT: CT angiography was performed with multi slice acquisition and multi planar and 3D reconstruction. There is no evidence of pulmonary emboli or aortic dissection. The heart size appears normal. The lungs are not well evaluated due to motion. No gross infiltrate is seen. There are no pleural or pericardial effusions. The thyroid is unremarkable where visualized. No abnormality is visible in the upper abdominal organs. IMPRESSION: Negative chest CT. No evidence of pulmonary emboli or other acute abnormality.
[2018-07-20] MEDS: Omnipaque 350 MG/ML 100 ML BTL IJ (18:51)
[2018-07-20] MEDS: Normal Saline Flush 10 ML SYR IVP ×3 (18:52→19:46)
--- NOTE | 2018-07-20 19:12 | DI.VRAD_ITS ---
EXAM: XR Chest, 2 Views EXAM DATE/TIME: 07/20/2018 6:26 PM CLINICAL HISTORY: 33 years old, female; Pain; Chest pain; Other: Lt sided chest pain R/O acute disease TECHNIQUE: XR of the chest, 2 views. COMPARISON: CR CHEST 2 VIEWS PA,LAT 10/19/2017 6:56 PM FINDINGS: Lungs: Clear lungs. Pleural space: No pneumothorax. No sizable pleural effusion. Heart/Mediastinum: No cardiomegaly. Bones/joints: Unremarkable. IMPRESSION: Clear lungs. Dictated and Authenticated by: Mike Conde MD. Ordering:MYRNA Turcios MD
[2018-07-20] MEDS: hydrALAZINE 20 MG/ML VIAL 10 MG IVP (19:27)
[2018-07-20] MEDS: Ondansetron 4 MG/2 ML VIAL (19:46)
--- NOTE | 2018-07-20 19:49 | DI.VRAD_ITS ---
EXAM: CT Angiography Chest With Contrast EXAM DATE/TIME: 07/20/2018 6:40 PM CLINICAL HISTORY: 33 years old, female; Pain; Chest pain; Patient HX: Lt sided pain elevated d dimer TECHNIQUE: Axial computed tomographic angiography images of the chest with intravenous contrast using CT angiography protocol. Coronal and sagittal reformatted images were created and reviewed. MIP reconstructed images were created and reviewed. CONTRAST: 100 ml of omni 350 administered intravenously. COMPARISON: CT CHEST ABD PELVIS WITH CONTRAST 01/24/2017 10:41 AM FINDINGS: Pulmonary arteries: No acute pulmonary embolus. Aorta: Normal. No aortic aneurysm. No aortic dissection. Other arteries: Left common carotid artery arises from the brachiocephalic trunk. Lungs: Normal. No consolidation. No masses. Pleural space: Normal. No pneumothorax. No pleural effusion. Heart: No cardiomegaly. Lymph nodes: Unremarkable. No enlarged lymph nodes. Bones/joints: Unremarkable. No acute fracture. Soft tissues: Unremarkable. IMPRESSION: No acute pulmonary embolus. Dictated and Authenticated by: Mike Conde MD. Ordering:MYRNA Turcios MD
[2018-07-20 20:54] LABS: Troponin I < 0.02 ng/mL (0.00-0.06)
--- NOTE | 2018-07-22 09:30 | PDOC.ERCMPRO ---
Care Management Progress Note 07/22-Dr. Mattson requested assistance with a PCP (Sanjay) f/u in 1-2 weeks for management of blood pressure and chest pain. Referral faxed to [facility] this am.
== END 2018-07-20 21:14 | disposition home or self-care (01) ==
PROVIDERS: Physician Assistant; Emergency Provider Emergency Medicine; PCP Nurse Practitioner Family
DX: R07.9 Chest pain, unspecified (principal); I10 Essential (primary) hypertension; R79.1 Abnormal coagulation profile
CPT/HCPCS: 36415; 71275; 80053; 93005; 96374; 96375; 99285; 71046; 83735; 84484; 85025; 85379; 93010; J2405; J3490

== ENCOUNTER 2018-08-09 16:20 | Emergency (ER) | payer MEDICAID, SELFPAY ==
[2018-08-09 16:28] VITALS: BP 156/98; PULSE 98; RESP 16; TEMP 36.8; O2SAT 98
--- NOTE | 2018-08-09 17:07 | ED.GENADUL_ITS ---
Discharge Plan Disposition Patient Disposition: HOME Condition: Stable Discharge Details Chief Complaint: DentalOral Clinical Impression: Odontalgia Primary Care Provider: Lesley Grace ED Provider: Zaid Ghotra Home Meds and New Rx's Prescriptions: No Action clonazepam [Klonopin] 0.5 MG tablet 2 mg PO PRN PRNRF: 0 prochlorperazine maleate 10 MG tablet 10 mg PO Q8H PRN Qty: 90 RF: 6 lisinopril 10 MG tablet 40 mg PO DAILY RF: 0 metoprolol succinate 50 MG tablet extended release 24 hr 1 tab PO DAILY RF: 0 omeprazole 20 MG capsule,delayed release(DR/EC) 2 tab PO DAILY RF: 0 thiamine mononitrate (vit B1) [Vitamin B-1 (mononitrate)] 100 MG tablet 100 mg PO DAILY RF: 0 diphenhydramine HCl 25 mg Tablet 25 mg PO Q4H PRNRF: 0 ibuprofen 600 MG tablet 600 mg PO Q6H PRN (Reason: Pain) Qty: 20 RF: 0 hydralazine 10 mg tablet 10 mg PO DAILY Qty: 3 RF: 0 Medical Decision Making 33-year-old female with right upper knee pain over 2 days time. Plans to establish care with dentistry on Sunday. No drooling, no change to voice. She does not have evidence of a fluctuant abscess on exam. Patient consented for right periapical block with a 50-50 mix of lidocaine and Marcaine was performed with L placed placed on a course of penicillin and she is to follow-up with primary dentistry for recheck as planned. HPI General Mode of arrival: ambulatory . Date/Time Provider Initiated Documentation: 08/09/18 16:56 . Limitations to Documentation: no limitations . Information obtained by: patient . History of Present Illness 33 year old F presents to the emergency department with the chief complaint of Right upper tooth pain, described as moderate, Quality is described as aching, and is localized to the mouth and right. Patient reports no radiation. Patient started experiencing this day(s) and it has been constant. other things that improve symptom(s), (Warm compress) Eating worsens symptoms . Patient notes no other symptoms.; denies fever/chills. Patient did receive the following treatments prior to arrival, NSAID Related Data Home Medications Medication Instructions Recorded Confirmed lisinopril 40 mg PO DAILY 01/22/13 08/09/18 metoprolol succinate 1 tab PO DAILY 01/21/14 08/09/18 omeprazole 2 tab PO DAILY 04/12/14 08/09/18 clonazepam [Klonopin] 2 mg PO PRN PRN tab-cap 11/04/14 08/09/18 prochlorperazine maleate 10 mg PO Q8H PRN #90 tab-cap 11/04/14 08/09/18 ibuprofen 600 mg PO Q6H PRN #20 tablet 10/19/17 08/09/18 thiamine mononitrate (vit B1) 100 mg PO DAILY 11/09/17 08/09/18 [Vitamin B-1 (mononitrate)] diphenhydramine HCl 25 mg PO Q4H PRN 05/23/18 08/09/18 hydralazine 10 mg PO DAILY #3 tab 07/20/18 08/09/18 Previous Rx's Medication Instructions Recorded ibuprofen 600 mg PO Q6H PRN #20 tablet 10/19/17 hydralazine 10 mg PO DAILY #3 tab 07/20/18 Allergies Allergy/AdvReac Type Severity Reaction Status Date / Time hydrocodone bitartrate AdvReac increases Unverified 07/20/18 17:14 [From Vicodin] Resp rate General Stated Complaint: DentalOral PIYUSH: 4 Review of Systems Review of Systems For systems reviewed and otherwise negative FOR[facility]LY [facility] Medical History Asthma Borderline personality disorder Depression GERD (gastroesophageal reflux disease) HTN (hypertension) MRSA (methicillin resistant staph aureus) culture positive Migraine PTSD (post-traumatic stress disorder) Surgical History Endometrial Ablation (~2009) Ligation of fallopian tube Tonsillectomy and adenoidectomy repair of r hand laceration Family History Mother Diabetes Headache Father Headache Sister Headache Son Headache Social History Smoking/Tobacco Use Status: Former Tobacco Use alcohol intake: current alcohol intake frequency: holidays/special occasions only substance use type: does not use Exam Narrative Exam Narrative: GEN: awake, alert, oriented 3. Pleasant, well groomed, interactive. HEAD: Normocephalic, atraumatic ENT: Mucous membranes moist, oropharynx with numerous dental caries, broken cusp of right second molar. No significant fluctuance. There is mild buccal tenderness to palpation, tenderness to percussion of teeth EYES: PERRL, EOMI NECK: Full ROM, no SOHA, no menigismus CHEST/RESP: Nontender, clear to auscultation bilateral, no wheeze/rhonchi/rales CARDIOVASCULAR: RRR, no murmur, rub marsha. 2+ Rad pulse bilateral Neuro: Grossly normal neurologic exam, conversant, interactive. Psych: Speech fluent, thoughts congruent, affect normal Course Vital Signs Temperature 36.8 C 08/09/18 16:28 Pulse 98 H 08/09/18 16:28 Respiratory Rate 16 08/09/18 16:28 Blood Pressure 156/98 H 08/09/18 16:28 Pulse Oximetry 98 08/09/18 16:28 Temperature 36.8 C 08/09/18 16:28 Temperature Source Skin 08/09/18 16:28 Pulse 98 H 08/09/18 16:28 Respiratory Rate 16 08/09/18 16:28 Respiratory Effort Non-Labored 08/09/18 16:33 Blood Pressure 156/98 H 08/09/18 16:28 Blood Pressure Position Sitting 08/09/18 16:28 Pulse Oximetry 98 08/09/18 16:28 Oxygen Delivery Method Room Air 08/09/18 16:28 Oxygen Flow Rate 0 08/09/18 16:28 Pain Level 10 08/09/18 16:35 Procedures Nerve Block Nerve Block 1: Time out performed: Yes Local Anesthetic: Lidocaine 1% Intraoral Nerve Block: superior alveolar Procedure Successful: Yes Patient Tolerated Procedure: well Complications: none
[2018-08-09] MEDS: Penicillin V POTASSIUM 500 MG TAB PO (17:13)
[2018-08-09 17:17] VITALS: BP 156/98; PULSE 98; RESP 16; TEMP 36.8; O2SAT 98
== END 2018-08-09 17:18 | disposition home or self-care (01) ==
PROVIDERS: Emergency Provider Emergency Medicine; PCP Nurse Practitioner Family
DX: R68.84 Jaw pain (principal); I10 Essential (primary) hypertension
CPT/HCPCS: 64402

== ENCOUNTER 2018-09-19 19:10 | Outpatient (REF) | payer MEDICAID, SELFPAY ==
[2018-09-19 14:22] LABS: Cholesterol 162 mg/dL (50-200); HDL Cholesterol 36 mg/dL (40-60); LDL CHOLESTEROL 112 mg/dL (<100); TSH (W/Ref FT4) 2.45 uIU/mL (0.358-3.74); Triglyceride 93 mg/dL (30-150)
== END 2018-09-19 19:30 ==
LOC: NCHCN 19:10
PROVIDERS: PCP Nurse Practitioner Family; Visit Provider Nurse Practitioner Family
DX: R53.83 Other fatigue (principal); Z13.220 Encounter for screening for lipoid disorders
CPT/HCPCS: 80061; 83721; 84443

== ENCOUNTER 2018-10-07 19:21 | Emergency (ER) | payer MEDICAID, SELFPAY ==
[2018-10-07] VITALS (15 sets, daily range): BP systolic 168–183; BP diastolic 82–113; PULSE 63–88; RESP 16–23; TEMP 36.7; O2SAT 92–98
--- NOTE | 2018-10-07 19:28 | DI.COMBO_ITS ---
SYMPTOM/DIAGNOSIS: LT SIDED HEADACHE, H/O MIGRAINES, COUGH, SOB NONCONTRAST HEAD CT: There is no evidence of an intra/extra-axial hemorrhage, mass or fluid collection. There is nothing to suggest a territorial infarct. The ventricles are normal. There is no skull fracture. Note is made of a polyp or retention cyst involving the right maxillary antrum. The paranasal sinuses are otherwise unremarkable. There is no evidence of a mastoid effusion. There is no evidence of a skull fracture. SUMMARY: No acute intracranial abnormality is apparent. PA AND LATERAL CHEST: The heart is normal in size. The lungs are clear. The mediastinal structures and pleura appear intact. CONCLUSION: Normal chest. No evidence of acute cardiopulmonary disease.
--- NOTE | 2018-10-07 19:28 | ED.GENADUL_ITS ---
Discharge Plan Disposition Patient Disposition: HOME Condition: Improving Discharge Details Chief Complaint: Chest Pain Clinical Impression: Migraine, Chest wall pain Primary Care Provider: Lesley Grace ED Provider: Karolina Mattson Home Meds and New Rx's Prescriptions: Continued clonazepam [Klonopin] 0.5 MG tablet 2 mg PO PRN PRNRF: 0 prochlorperazine maleate 10 MG tablet 10 mg PO Q8H PRN Qty: 90 RF: 6 amlodipine 5 mg tablet 5 mg PO DAILY RF: 0 meloxicam 15 mg tablet 15 mg PO DAILY RF: 0 naproxen 500 mg tablet 500 mg PO BID PRNRF: 0 fluticasone propionate 50 mcg/actuation spray,suspension 2 spray MELISSA DAILY RF: 0 halobetasol propionate 0.05 % cream 1 applic TP BID RF: 0 triamcinolone acetonide 0.1 % cream 1 applic TP BID RF: 0 duloxetine 30 mg capsule,delayed release(DR/EC) 30 mg PO DAILY RF: 0 riboflavin (vitamin B2) 100 mg tablet 200 mg PO DAILY RF: 0 loratadine 10 mg tablet 10 mg PO DAILY RF: 0 lisinopril 10 MG tablet 40 mg PO DAILY RF: 0 metoprolol succinate 50 MG tablet extended release 24 hr 1 tab PO DAILY RF: 0 omeprazole 20 MG capsule,delayed release(DR/EC) 2 tab PO DAILY RF: 0 thiamine mononitrate (vit B1) [Vitamin B-1 (mononitrate)] 100 MG tablet 100 mg PO DAILY RF: 0 diphenhydramine HCl 25 mg Tablet 25 mg PO Q4H PRNRF: 0 ibuprofen 600 MG tablet 600 mg PO Q6H PRN (Reason: Pain) Qty: 20 RF: 0 hydralazine 10 mg tablet 10 mg PO DAILY Qty: 3 RF: 0 Discharge Instructions Instructions: Migraine Headache (ED), Hypertension (ED), Chest Wall Pain (ED) Additional Instructions: Take your regular medications as directed. Drink plenty of fluids and get plenty of rest. Call your primary care doctor tomorrow morning to schedule a follow-up appointment for reevaluation. Return immediately to the emergency department with any worsening or new concerning symptoms. Discharge Data Discharge Physician: Karolina Mattson Medical Decision Making 33-year-old female with a history of hypertension, migraines, anxiety, bipolar, hysterectomy who presents with migraine headache and left-sided chest pain and shortness of breath since this morning. States her headache feels consistent with her usual migraines. States her chest pain is worse to palpation. Denies fever, vomiting, diarrhea, leg swelling or pain, recent travel or recent surgeries. Blood pressure hypertensive 175/113. She states she has had this chronically elevated blood pressure for years and that her primary care doctor has difficulty with managing it. She denies any thunderclap quality or sudden onset so not consistent with subarachnoid hemorrhage. She denies any fever, neck pain and her headache feels like her usual migraine so doubt meningitis. Her left chest is tender to palpation and appears musculoskeletal. Her lungs are clear to auscultation. Abdomen soft nontender. No focal deficits. Will place an IV, bolus IV fluids, migraine cocktail, labs, chest x-ray and CT head. 2114 --patient feels much better and she is requesting to go home. Labs and imaging reviewed and unremarkable. Troponin negative. CT head and chest x-ray negative. Ordered dose of Toradol and Decadron but patient declined stating her symptoms were improved. Discussed that d-dimer still pending and that Decadron likely can prolong her symptom relief and she is now agreeable. 2199 --d-dimer negative. Patient is requesting to go home. Patient observed for 3 hours. She had ambulated around the ED and is awake and alert and is requesting to go home. She is instructed to call her primary care doctor tomorrow to schedule a follow- up appointment for reevaluation and to return here immediately if worse. Medical Records Medical records reviewed: Yes I reviewed the patient's medical records. Imaging Data Radiologic Study: Radiologist's impression: XR Chest, 2 Views EXAM DATE/TIME: 10/07/2018 7:30 PM FINDINGS: Lungs: Clear lungs. Pleural space: No pneumothorax. No sizable pleural effusion. Heart/Mediastinum: No cardiomegaly. Bones/joints: Unremarkable. IMPRESSION: Clear lungs. CT Head Without Contrast EXAM DATE/TIME: 10/07/2018 8:04 PM FINDINGS: Brain: No evidence for acute transcortical infarct. No mass effect or midline shift. No extra-axial collection. No acute intracranial hemorrhage. Basal cisterns are patent. Ventricles: Normal. No ventriculomegaly. Bones/joints: Unremarkable. No acute fracture. Sinuses: Polyp versus retention cyst within the right maxillary sinus. Mastoid air cells: Visualized mastoid air cells are unremarkable. No mastoid effusion. Soft tissues: Unremarkable. IMPRESSION: No acute intracranial hemorrhage or mass effect. Lab Data Lab results reviewed: Yes I reviewed the patient's lab results. ECG Data Attestation: I personally reviewed and interpreted this ECG (s) as follows: Interpretation: Rate of 92, sinus, no acute ST elevation or depression. T wave inversion in lead III which is seen in previous EKG. QTc 433. QRS 94. HPI General Mode of arrival: ambulatory . Date/Time Provider Initiated Documentation: 10/07/18 19:23 . Limitations to Documentation: no limitations . Information obtained by: patient . HPI Narrative: Patient is a 33-year-old female with history of anxiety, bipolar, PTSD, migraines, and hypertension who presents with migraine and left-sided chest pain since awaking this morning. Patient states her headache feels consistent with her usual migraine. She states it is on the left side of her head, throbbing, and is currently 10/10. She took Excedrin Migraine, Tylenol, and Compazine which usually work for her migraines but she had no relief with these. She states she also had left-sided sharp shooting chest pain which is 7/10 since this morning. She states it has been intermittent, worse with palpation. She denies any injury. She denies fever, leg pain or swelling, recent travel, recent surgeries, unilateral numbness or weakness. She states she has been eating and drinking normally. Related Data Home Medications Medication Instructions Recorded Confirmed lisinopril 40 mg PO DAILY 01/22/13 10/07/18 metoprolol succinate 1 tab PO DAILY 01/21/14 10/07/18 omeprazole 2 tab PO DAILY 04/12/14 10/07/18 clonazepam [Klonopin] 2 mg PO PRN PRN tab-cap 11/04/14 10/07/18 prochlorperazine maleate 10 mg PO Q8H PRN #90 tab-cap 11/04/14 10/07/18 ibuprofen 600 mg PO Q6H PRN #20 tablet 10/19/17 10/07/18 thiamine mononitrate (vit B1) 100 mg PO DAILY 11/09/17 10/07/18 [Vitamin B-1 (mononitrate)] diphenhydramine HCl 25 mg PO Q4H PRN 05/23/18 10/07/18 hydralazine 10 mg PO DAILY #3 tab 07/20/18 10/07/18 amlodipine 5 mg tablet 5 mg PO DAILY 10/01/18 10/07/18 duloxetine 30 mg capsule,delayed 30 mg PO DAILY 10/01/18 10/07/18 release fluticasone propionate 50 2 spray MELISSA DAILY 10/01/18 10/07/18 mcg/actuation nasal spray,suspension halobetasol propionate 0.05 % 1 applic TP BID 10/01/18 10/07/18 topical cream loratadine 10 mg tablet 10 mg PO DAILY 10/01/18 10/07/18 meloxicam 15 mg tablet 15 mg PO DAILY 10/01/18 10/07/18 naproxen 500 mg tablet 500 mg PO BID PRN 10/01/18 10/07/18 riboflavin (vitamin B2) 100 mg 200 mg PO DAILY tab 10/01/18 10/07/18 tablet triamcinolone acetonide 0.1 % 1 applic TP BID 10/01/18 10/07/18 topical cream Previous Rx's Medication Instructions Recorded ibuprofen 600 mg PO Q6H PRN #20 tablet 10/19/17 hydralazine 10 mg PO DAILY #3 tab 07/20/18 Allergies Allergy/AdvReac Type Severity Reaction Status Date / Time hydrocodone bitartrate AdvReac increases Unverified 10/07/18 22:04 [From Vicodin] Resp rate General Stated Complaint: Chest Pain PIYUSH: 2 Review of Systems Review of Systems All systems reviewed & are unremarkable except as noted in HPI and below Constitutional Reports as per HPI, Denies chills, Denies fever(s) and Reports headache(s) Eyes Denies blurry vision ENT Denies dizziness, Reports headache(s), Denies sore throat and Denies throat swelling Cardiovascular Reports chest pain and Reports dyspnea Respiratory Denies cough and Reports dyspnea Gastrointestinal Denies abdominal pain, Denies diarrhea and Denies vomiting Genitourinary Denies hematuria and Denies dysuria Musculoskeletal Denies back pain and Denies numbness Integumentary/Breasts Denies lesions and Denies rash Neurologic Denies dizziness, Reports headache(s), Denies focal weakness and Denies numbness Allergic/Immunologic Denies throat swelling [facility] Medical History Asthma Borderline personality disorder Depression GERD (gastroesophageal reflux disease) HTN (hypertension) MRSA (methicillin resistant staph aureus) culture positive Migraine PTSD (post-traumatic stress disorder) Surgical History Endometrial Ablation (~2009) Ligation of fallopian tube Tonsillectomy and adenoidectomy repair of r hand laceration Family History Mother Diabetes Headache Father Headache Sister Headache Son Headache Social History Smoking/Tobacco Use Status: Former Tobacco Use Alcohol Intake: current Alcohol Intake frequency: holidays/special occasions only Drug use: Current Sobriety Substance use type: does not use Do you feel safe at home: Yes Do you feel safe in your relationship?: Yes Exam Const General: cooperative and healthy appearing Orientation: alert and awake HENMT Head: normal to inspection Ears: hearing grossly normal bilaterally, external ears normal and TM's normal bilaterally General nose exam: external nose normal Face and sinus: normal facial exam Mouth: oral mucosae normal Teeth and gingiva: dentition normal Throat: posterior oropharynx normal Eyes General: appearance normal, both eyes and all related structures Eyelids: eyelids normal Pupils: PERRL EOM: EOM intact bilaterally Neck Neck: normal visual inspection Lymphatic: no lymphadenopathy noted Chest Chest: normal inspection of the chest Resp Effort & Inspection: normal respiratory effort and able to speak in complete sentences Auscultation: clear to auscultation bilaterally Cardio Rate: regular rate Rhythm: regular rhythm GI Inspection: normal to inspection Palpation: soft, not firm, no guarding, no hepatosplenomegaly, no masses and nontender Auscultation: normal bowel sounds Back/Spine/Pelvis Back: no CVA tenderness Skin General skin exam: no rashes or lesions noted Neuro General: alert, awake, gait normal, moves all extremities, no meningeal signs and no focal motor deficits Cranial Nerves: CN's II-XI intact bilaterally Cognition: normal cognition Speech: speech normal Gait: normal gait Motor: muscle tone normal throughout and strength 5/5 throughout Sensory Exam: no sensory deficits noted Extrem General: normal to inspection, full ROM and normal capillary refill Psych Appearance: grossly normal Mental Status: mental status grossly normal Speech and Movement: speech and movement normal Affect: normal affect Thought Process: normal
[2018-10-07 20:00] LABS: Abs Immature Grans 0.02 k/cumm (0.0-0.09); Absolute Basophil Count 0.04 k/cumm (0.0-0.2); Absolute Eosinophil Count 0.21 k/cumm (0.0-0.7); Absolute Lymphocyte Count 3.55 k/cumm (1.2-3.4); Absolute Monocyte Count 0.71 k/cumm (0.11-0.7); Absolute Neutrophil Count 4.39 k/cumm (1.2-6.7); Basophils % 0.4; Eosinophils % 2.4; HGB 14.9 g/dL (12.0-15.5); Immature Grans % 0.2; Lymphocytes % 39.8; Mean Corp. HGB Concentration 33.9 g/dL (32.0-36.0); Mean Corpuscular Hemoglobin 31.4 pg (27.0-33.0); Mean Corpuscular Volume 92.6 fL (80-95); Neutrophils % 49.2; Platelet Count 336 x1000/uL (130-400); RBC 4.75 m/cumm (4.00-5.20); RBC Distribution Width 13.5 % (11.7-14.6); White Blood Cell Count 8.92 k/cumm (4.4-10.8)
[2018-10-07 20:15] LABS: ALT 33 U/L (12-78); AST 25 U/L (15-37); Albumin 3.8 g/dL (3.4-5.0); Alkaline Phosphatase 114 U/L (46-116); Anion Gap 11.8 mmol/L (3-11); BUN 8 mg/dL (7-18); Bilirubin, Total 0.3 mg/dL (0.2-1.0); CO2 26.2 mmol/L (21.0-32.0); CREATININE 0.81 mg/dL (0.55-1.02); Calcium 9.3 mg/dL (8.5-10.1); Chloride 100 mmol/L (98-107); Glucose 95 mg/dL (70-100); Potassium 4.1 mmol/L (3.5-5.1); Sodium 138 mmol/L (136-145)
[2018-10-07] MEDS: Normal Saline 250 ML 500 ML IV (20:17)
[2018-10-07] MEDS: diphenhydrAMINE 50 MG/ML VIAL 25 MG IVP (20:18)
[2018-10-07] MEDS: Metoclopramide 10 MG/2 ML VIAL IVP (20:20)
--- NOTE | 2018-10-07 20:22 | NUR.NOTE ---
patient returned from CT, medicated pe MD order Nursing Note:
--- NOTE | 2018-10-07 20:24 | DI.VRAD_ITS ---
EXAM: XR Chest, 2 Views EXAM DATE/TIME: 10/07/2018 7:30 PM CLINICAL HISTORY: 33 years old, female; Signs and symptoms; Cough and shortness of breath TECHNIQUE: Imaging protocol: XR of the chest, 2 views. COMPARISON: CR XR CHEST 2V PA LATERAL 07/20/2018 6:16 PM FINDINGS: Lungs: Clear lungs. Pleural space: No pneumothorax. No sizable pleural effusion. Heart/Mediastinum: No cardiomegaly. Bones/joints: Unremarkable. IMPRESSION: Clear lungs. Dictated and Authenticated by: Mike Conde MD. Ordering:MYRNA Turcios MD
[2018-10-07 20:27] LABS: Troponin I < 0.02 ng/mL (0.00-0.06)
--- NOTE | 2018-10-07 20:27 | DI.VRAD_ITS ---
EXAM: CT Head Without Contrast EXAM DATE/TIME: 10/07/2018 8:04 PM CLINICAL HISTORY: 33 years old, female; Pain; Headache; Other: L sided; Patient HX: L sided, h/o migraines TECHNIQUE: Imaging protocol: Axial computed tomography images of the head/brain without contrast. Coronal and sagittal reformatted images were created and reviewed. COMPARISON: CT HEAD WITHOUT CONTRAST 12/24/2012 8:12 PM FINDINGS: Brain: No evidence for acute transcortical infarct. No mass effect or midline shift. No extra-axial collection. No acute intracranial hemorrhage. Basal cisterns are patent. Ventricles: Normal. No ventriculomegaly. Bones/joints: Unremarkable. No acute fracture. Sinuses: Polyp versus retention cyst within the right maxillary sinus. Mastoid air cells: Visualized mastoid air cells are unremarkable. No mastoid effusion. Soft tissues: Unremarkable. IMPRESSION: No acute intracranial hemorrhage or mass effect. Dictated and Authenticated by: Mike Conde MD. Ordering:MYRNA Turcios MD
--- NOTE | 2018-10-07 21:00 | NUR.NOTE ---
patient reports feeling better pain is 2/10 and chest pain is better, patient refuses additional medication and MD aware Nursing Note:
[2018-10-07 21:50] LABS: D-Dimer 230 ng/mlFEU (<500)
--- NOTE | 2018-10-07 22:14 | NUR.NOTE ---
patient ambulates with a steady gait. drinking po fluids. Nursing Note:
== END 2018-10-07 22:15 | disposition home or self-care (01) ==
PROVIDERS: Emergency Provider Physician Assistant; PCP Nurse Practitioner Family
DX: G43.909 Migraine, unspecified, not intractable, without status migrainosus (principal); R07.89 Other chest pain; I10 Essential (primary) hypertension
CPT/HCPCS: 36415; 80053; 81025; 93005; 96361; 96374; 96375; 99285; 70450; 71046; 83735; 84484; 85025; 85379; 93010; J1200; J1885; J2765

== ENCOUNTER 2018-10-11 15:45 | Outpatient (REF) | payer MEDICAID, SELFPAY ==
[2018-10-11 19:21] LABS: C-Reactive Protein 0.66 mg/dL (0.0-0.3)
[2018-10-14 09:25] LABS: Cyclic Citrullinated Peptide <2.5 U/mL (<5.0)
[2018-10-14 09:38] LABS: Rheumatoid Factor <8 IU/mL (<12.5)
[2018-10-14 13:50] LABS: ANA Interpretation Negative (NEGAT)
== END 2018-10-11 16:05 ==
LOC: NCHCN 15:45
PROVIDERS: PCP Nurse Practitioner Family; Visit Provider Nurse Practitioner Family
DX: M25.50 Pain in unspecified joint (principal)
CPT/HCPCS: 85652; 86200; 86038; 86140; 86431

== ENCOUNTER 2018-10-15 08:44 | Outpatient (REF) | payer MEDICAID, SELFPAY ==
[2018-10-15 12:51] LABS: ESR 8 MM/HR (0-20)
== END 2018-10-15 09:04 ==
LOC: NCHCN 08:44
PROVIDERS: PCP Nurse Practitioner Family; Visit Provider Nurse Practitioner Family
DX: M25.50 Pain in unspecified joint (principal)
CPT/HCPCS: 85652

== ENCOUNTER 2018-10-23 18:18 | Emergency (ER) | payer MEDICAID, SELFPAY ==
[2018-10-23 18:25] VITALS: BP 176/115; PULSE 100; RESP 14; TEMP 36.7; O2SAT 91
--- NOTE | 2018-10-23 18:46 | ED.GENADUL_ITS ---
Discharge Plan Disposition Patient Disposition: HOME Condition: Good Discharge Details Chief Complaint: Cellulitis Clinical Impression: Cellulitis Primary Care Provider: Lesley Grace ED Provider: Steve Ortega Home Meds and New Rx's Prescriptions: New cephalexin [Keflex] 500 mg capsule 500 mg PO QID 10 Days Qty: 40 RF: 0 No Action clonazepam [Klonopin] 0.5 MG tablet 2 mg PO PRN PRNRF: 0 prochlorperazine maleate 10 MG tablet 10 mg PO Q8H PRN Qty: 90 RF: 6 amlodipine 5 mg tablet 5 mg PO DAILY RF: 0 meloxicam 15 mg tablet 15 mg PO DAILY RF: 0 naproxen 500 mg tablet 500 mg PO BID PRNRF: 0 fluticasone propionate 50 mcg/actuation spray,suspension 2 spray MELISSA DAILY RF: 0 halobetasol propionate 0.05 % cream 1 applic TP BID RF: 0 triamcinolone acetonide 0.1 % cream 1 applic TP BID RF: 0 duloxetine 30 mg capsule,delayed release(DR/EC) 30 mg PO DAILY RF: 0 riboflavin (vitamin B2) 100 mg tablet 200 mg PO DAILY RF: 0 loratadine 10 mg tablet 10 mg PO DAILY RF: 0 lisinopril 10 MG tablet 40 mg PO DAILY RF: 0 metoprolol succinate 50 MG tablet extended release 24 hr 1 tab PO DAILY RF: 0 omeprazole 20 MG capsule,delayed release(DR/EC) 2 tab PO DAILY RF: 0 thiamine mononitrate (vit B1) [Vitamin B-1 (mononitrate)] 100 MG tablet 100 mg PO DAILY RF: 0 diphenhydramine HCl 25 mg Tablet 25 mg PO Q4H PRNRF: 0 ibuprofen 600 MG tablet 600 mg PO Q6H PRN (Reason: Pain) Qty: 20 RF: 0 hydralazine 10 mg tablet 10 mg PO DAILY Qty: 3 RF: 0 Discharge Instructions Instructions: Cellulitis (ED) Additional Instructions: Please continue taking the Bactrim as prescribed. Please take 500 mg of Keflex 4 times a day in addition to this. Please continue to wash gently, apply triple antibiotics and re-bandage. Take pictures daily. If you notice spreading of the redness, worsening of your symptoms, more discharge, please return immediately. Please follow-up promptly with your primary care provider for reassessment. If you notice any worsening of your symptoms, or any new symptoms such as vomiting, diarrhea, fever, chills, shortness of breath, chest pain, numbness, weakness, or fainting , please return immediately to the emergency department for reevaluation. Please follow up with your primary care provider as soon as possible for reassessment and reevaluation. As always, it was a pleasure participating in your medical care today. Referrals: Lesley Grace [Primary Care Provider] - Discharge Data Discharge Date/Time-TO BE ENTERED AT DEPARTURE: 10/23/18 18:53 Medical Decision Making This is a 33-year-old female who presents today for evaluation of right forearm lesion. The patient states that for the last 4-5 days she has had a small lesion, unsure of where it came up from, it may have been a infected marifer r follicle. She was started on Bactrim 3 days ago, has taken this for the last 2 days. It is been healing well with no worsening erythema, however the top of it deroofed and she was concerned because of this. Only minimal discharge is noted. Exam demonstrates minimal cellulitis, bedside limited ultrasound shows no evidence of significant fluctuance or pocket abscess beneath requiring incision and drainage. The area was squeezed and no significant purulent drainage came out. With no signs of necrotizing fasciitis, good wound healing, I do feel that there is no indication for admission for IV antibiotics. We will add Keflex for additional gram-positive coverage. Recommend continue daily cleaning, continued antibiotics, daily pictures, and close follow-up. We discussed red flags which to return I have extensively reviewed the treatment plan and discharge instructions with the patient. I have addressed all patient concerns at this time. The patient was made aware of what symptoms to monitor for that would warrant a return to the emergency department. Discussed the plan with the patient, they demonstrate verbal understanding and agreement with our assessment and plan at this time. . HPI General Date/Time Provider Initiated Documentation: 10/23/18 18:27 . HPI Narrative: This is a 33-year-old female with a past medical history of asthma, borderline personality disorder, depression, GERD, previous abscesses but denies any history of IV drug use, who presents today for evaluation of lesion on her right forearm. Patient states that for the last 4-5 days she has had a lesion on her right forearm, she was started on Bactrim 2 days ago, she has been taking this, and has noticed no worsening of the redness, no worsening of the swelling, but did notice that the top became the roof today was a small amount of discharge. The patient denies any systemic symptoms of fever or chills. She denies any worsening arm pain, history of blood clots, no other complaints. No other modifying factors. No other complaints at this time. She presents today because she was concerned about the Deroofed component Related Data Home Medications Medication Instructions Recorded Confirmed lisinopril 40 mg PO DAILY 01/22/13 10/07/18 metoprolol succinate 1 tab PO DAILY 01/21/14 10/23/18 omeprazole 2 tab PO DAILY 04/12/14 10/23/18 clonazepam [Klonopin] 2 mg PO PRN PRN tab-cap 11/04/14 10/23/18 prochlorperazine maleate 10 mg PO Q8H PRN #90 tab-cap 11/04/14 10/23/18 ibuprofen 600 mg PO Q6H PRN #20 tablet 10/19/17 10/23/18 thiamine mononitrate (vit B1) 100 mg PO DAILY 11/09/17 10/23/18 [Vitamin B-1 (mononitrate)] diphenhydramine HCl 25 mg PO Q4H PRN 05/23/18 10/23/18 hydralazine 10 mg PO DAILY #3 tab 07/20/18 10/23/18 amlodipine 5 mg tablet 5 mg PO DAILY 10/01/18 10/23/18 duloxetine 30 mg capsule,delayed 30 mg PO DAILY 10/01/18 10/23/18 release fluticasone propionate 50 2 spray MELISSA DAILY 10/01/18 10/23/18 mcg/actuation nasal spray,suspension halobetasol propionate 0.05 % 1 applic TP BID 10/01/18 10/23/18 topical cream loratadine 10 mg tablet 10 mg PO DAILY 10/01/18 10/23/18 meloxicam 15 mg tablet 15 mg PO DAILY 10/01/18 10/23/18 naproxen 500 mg tablet 500 mg PO BID PRN 10/01/18 10/23/18 riboflavin (vitamin B2) 100 mg 200 mg PO DAILY tab 10/01/18 10/23/18 tablet triamcinolone acetonide 0.1 % 1 applic TP BID 10/01/18 10/23/18 topical cream cephalexin [Keflex] 500 mg PO QID 10 Days #40 cap 10/23/18 Previous Rx's Medication Instructions Recorded ibuprofen 600 mg PO Q6H PRN #20 tablet 10/19/17 hydralazine 10 mg PO DAILY #3 tab 07/20/18 cephalexin [Keflex] 500 mg PO QID 10 Days #40 cap 10/23/18 Allergies Allergy/AdvReac Type Severity Reaction Status Date / Time hydrocodone bitartrate AdvReac increases Unverified 10/23/18 18:30 [From Vicodin] Resp rate General Stated Complaint: Cellulitis PIYUSH: 4 Review of Systems Review of Systems All systems reviewed & are unremarkable except as noted in HPI and below PFSH Social History Smoking/Tobacco Use Status: Former Tobacco Use Alcohol Intake: current Alcohol Intake frequency: holidays/special occasions only Drug use: Current Sobriety Substance use type: does not use Do you feel safe at home: Yes Do you feel safe in your relationship?: Yes Exam Narrative Exam Narrative: 1.Const: Well-nourished, Well-developed, appearing stated age 2.Eyes: PERRL, no conjunctival injection, and symmetrical lids. 3.ENT: Atraumatic external nose and ears. Moist MM. Neck: Symmetric, trachea midline, No thyromegaly. 4.CVS: +S1/S2, No murmurs or gallops. Peripheral pulses 2+ and equal in all extremities. Brisk capillary refill in all extremities. 5.RESP: Unlabored respiratory effort. Clear to auscultation bilaterally. No wheezes rales or rhonchi 6.GI: Soft, Nontender/Nondistended, No hepatosplenomegaly. No guarding or rebound. 7.MSK: Normocephalic/Atraumatic, Extremities w/o deformity. No cyanosis or clubbing, Normal movement of all extremities. Small cellulitic lesions noted over the patient's right forearm. Diameter is roughly 2 cm, there is a central deroofed area with minimal discharge. Bedside ultrasound reveals no evidence of abscess beneath, or fluctuance on exam. No spreading redness, no evidence of necrotizing fasciitis. No evidence of severe swelling distal to the site. Normal neurovascular exam distal to the site of infection. 8.Skin: Warm, Dry. No rashes or lesions. 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 Sensation grossly intact, no focal neurologic deficits. 10.Psych: (AAO) x3. Appropriate mood and affect Course Vital Signs Temperature 36.7 C 10/23/18 18:25 Pulse 100 H 10/23/18 18:25 Respiratory Rate 14 10/23/18 18:25 Blood Pressure 176/115 H 10/23/18 18:25 Pulse Oximetry 91 L 10/23/18 18:25 Temperature 36.7 C 10/23/18 18:25 Pulse 100 H 10/23/18 18:25 Respiratory Rate 14 10/23/18 18:25 Respiratory Effort Non-Labored 10/23/18 18:28 Blood Pressure 176/115 H 10/23/18 18:25 Pulse Oximetry 91 L 10/23/18 18:25 Oxygen Delivery Method Room Air 10/23/18 18:25 Oxygen Flow Rate 0 10/23/18 18:25 Pain Level 8 10/23/18 18:25 Lab/Test Results Lab/Test Results: 10/23/18 18:40 Arm - Right Lower Wound Culture - Pending 10/23/18 18:40 Arm - Right Lower Gram Stain - Pending
[2018-10-23] MEDS: Cephalexin 500 MG CAP PO (18:50)
== END 2018-10-23 18:53 | disposition home or self-care (01) ==
PROVIDERS: Emergency Provider Student in an Organized Health Care Education/Training Program; PCP Nurse Practitioner Family
DX: L03.113 Cellulitis of right upper limb (principal); B95.61 Methicillin susceptible Staphylococcus aureus infection as the cause of diseases classified elsewhere
CPT/HCPCS: 87077; 99283; 87070; 87186; 87205

== ENCOUNTER 2018-11-01 12:48 | Outpatient (CLI) | payer MEDICAID, SELFPAY ==
[2018-11-01 21:38] LABS: Dexamethasone Suppression 6 ug/dl
== END 2018-11-01 13:08 ==
PROVIDERS: PCP Nurse Practitioner Family; Visit Provider Nurse Practitioner Family
DX: R63.5 Abnormal weight gain (principal)
CPT/HCPCS: 36415; 82533

== ENCOUNTER 2018-11-03 23:10 | Outpatient (REF) | payer MEDICAID, SELFPAY ==
[2018-11-06 18:40] LABS: Midnight Cortisol <50 ng/dL (<100)
== END 2018-11-03 23:30 ==
LOC: NCHCN 23:10
PROVIDERS: PCP Nurse Practitioner Family; Visit Provider Nurse Practitioner Family
DX: R63.5 Abnormal weight gain (principal)
CPT/HCPCS: 82530

== ENCOUNTER 2018-11-22 09:19 | Outpatient (REF) | payer MEDICAID, SELFPAY ==
[2018-11-25 12:09] LABS: Lyme Ab w Rflx to Lyme Confirm Negative
== END 2018-11-22 09:39 ==
LOC: NCHCN 09:19
PROVIDERS: PCP Nurse Practitioner Family; Visit Provider Nurse Practitioner Family
DX: M25.50 Pain in unspecified joint (principal)
CPT/HCPCS: 86618

== ENCOUNTER 2019-01-22 10:15 | Outpatient (REF) | payer MEDICAID, SELFPAY ==
[2019-01-22 13:41] LABS: HCT 45.1 % (36.0-46.0); HGB 15.1 g/dL (12.0-15.5); Mean Corp. HGB Concentration 33.5 g/dL (32.0-36.0); Mean Corpuscular Hemoglobin 31.3 pg (27.0-33.0); Mean Corpuscular Volume 93.6 fL (80-95); Mean Platelet Volume 10.8 fL (8.0-11.0); Platelet Count 334 x1000/uL (130-400); RBC 4.82 m/cumm (4.00-5.20); RBC Distribution Width 12.9 % (11.7-14.6); White Blood Cell Count 8.43 k/cumm (4.4-10.8)
[2019-01-22 14:01] LABS: Hemoglobin A1C 5.6 % (4.5-6.2)
[2019-01-22 14:06] LABS: ALT 32 U/L (12-78); AST 23 U/L (15-37); Albumin 3.9 g/dL (3.4-5.0); Alkaline Phosphatase 128 U/L (46-116); Anion Gap 13.2 mmol/L (3-11); BUN 6 mg/dL (7-18); Bilirubin, Total 0.4 mg/dL (0.2-1.0); CO2 21.8 mmol/L (21.0-32.0); CREATININE 1.01 mg/dL (0.55-1.02); Calcium 9.5 mg/dL (8.5-10.1); Chloride 104 mmol/L (98-107); Glucose 119 mg/dL (70-100); Potassium 4.1 mmol/L (3.5-5.1); Sodium 139 mmol/L (136-145); Total Protein 7.4 g/dL (6.4-8.2)
== END 2019-01-22 10:35 ==
LOC: NCHCN 10:15
PROVIDERS: PCP Nurse Practitioner Family; Visit Provider Family Medicine
DX: R53.83 Other fatigue (principal); R63.1 Polydipsia
CPT/HCPCS: 80053; 85027; 83036

== ENCOUNTER 2019-01-24 19:30 | Emergency (ER) | payer MEDICAID, SELFPAY ==
[2019-01-24 19:37] VITALS: BP 163/95; PULSE 92; RESP 18; TEMP 36.5; O2SAT 98
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
[2019-01-24] MEDS: Clindamycin 150 MG CAP 450 MG PO (20:06)
== END 2019-01-24 20:09 | disposition home or self-care (01) ==
PROVIDERS: Emergency Provider Student in an Organized Health Care Education/Training Program; PCP Nurse Practitioner Family
DX: L02.413 Cutaneous abscess of right upper limb (principal)
CPT/HCPCS: 99283

== ENCOUNTER 2019-02-13 10:13 | Emergency (ER) | payer MEDICAID, SELFPAY ==
[2019-02-13 10:16] VITALS: BP 159/130; PULSE 109; RESP 16
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
[2019-02-13] MEDS: Ketorolac 30 MG/ML VIAL IVP (11:13)
[2019-02-13] MEDS: diphenhydrAMINE 50 MG/ML VIAL 25 MG IVP (11:14)
[2019-02-13] MEDS: Normal Saline 1,000 ML 1000 ML IV (11:14)
[2019-02-13] MEDS: Prochlorperazine 10 MG/2 ML VIAL IVP (11:14)
[2019-02-13 11:37] LABS: ALT 36 U/L (12-78); AST 25 U/L (15-37); Albumin 4.1 g/dL (3.4-5.0); Alkaline Phosphatase 111 U/L (46-116); Anion Gap 11.3 mmol/L (3-11); BUN 7 mg/dL (7-18); Bilirubin, Total 0.6 mg/dL (0.2-1.0); CO2 23.7 mmol/L (21.0-32.0); CREATININE 0.84 mg/dL (0.55-1.02); Chloride 105 mmol/L (98-107); Glucose 109 mg/dL (70-100); Magnesium 1.9 mg/dL (1.8-2.4); Potassium 3.7 mmol/L (3.5-5.1); Sodium 140 mmol/L (136-145)
[2019-02-13 11:39] LABS: Abs Immature Grans 0.02 k/cumm (0.0-0.09); Absolute Basophil Count 0.01 k/cumm (0.0-0.2); Absolute Eosinophil Count 0.03 k/cumm (0.0-0.7); Absolute Lymphocyte Count 2.17 k/cumm (1.2-3.4); Absolute Monocyte Count 0.52 k/cumm (0.11-0.7); Absolute Neutrophil Count 6.55 k/cumm (1.2-6.7); Basophils % 0.1; Eosinophils % 0.3; HCT 43.9 % (36.0-46.0); Immature Grans % 0.2; Lymphocytes % 23.3; Mean Corp. HGB Concentration 34.2 g/dL (32.0-36.0); Mean Corpuscular Hemoglobin 31.3 pg (27.0-33.0); Mean Corpuscular Volume 91.6 fL (80-95); Mean Platelet Volume 10.4 fL (8.0-11.0); Monocytes % 5.6; Neutrophils % 70.5; Platelet Count 305 x1000/uL (130-400); RBC 4.79 m/cumm (4.00-5.20); RBC Distribution Width 13.2 % (11.7-14.6)
[2019-02-13 11:42] LABS: Troponin I < 0.05 ng/mL (0.00-0.06)
--- NOTE | 2019-02-13 12:15 | NUR.NOTE ---
pt resting in bed ivf infusing pt states improvment in symtoms afterbeing medicated Nursing Note:
[2019-02-13 12:48] VITALS: BP 145/98; PULSE 85; RESP 14; TEMP 36.7; O2SAT 99
--- NOTE | 2019-02-13 12:49 | NUR.NOTE ---
iv removed dc reviewed ambulatory steady on dc Nursing Note:
== END 2019-02-13 12:50 | disposition home or self-care (01) ==
PROVIDERS: Emergency Provider Nurse Practitioner Family; PCP Nurse Practitioner Family
DX: F43.0 Acute stress reaction (principal); F41.9 Anxiety disorder, unspecified; G43.909 Migraine, unspecified, not intractable, without status migrainosus; R07.9 Chest pain, unspecified; I10 Essential (primary) hypertension
CPT/HCPCS: 80053; 93005; 96374; 96375; 99284; 83735; 84484; 85025; 93010; J0780; J1200; J1885

== ENCOUNTER 2019-03-20 18:11 | Emergency (ER) | payer MEDICAID, SELFPAY ==
[2019-03-20 18:25] VITALS: BP 162/129; PULSE 101; RESP 16; TEMP 36.4; O2SAT 97
--- NOTE | 2019-03-20 18:37 | ED.GENADUL_ITS ---
Discharge Plan Disposition Patient Disposition: HOME Condition: Stable Discharge Details Chief Complaint: Cellulitis Clinical Impression: Cellulitis of leg, right Primary Care Provider: Lesley Grace ED Provider: Gilbert Alvarez [place] Meds and New Rx's Prescriptions: New amoxicillin-pot clavulanate [Augmentin] 875-125 mg tablet 1 tab PO BID Qty: 14 RF: 0 sulfamethoxazole-trimethoprim [Bactrim DS] 800-160 mg tablet 1 tab PO BID Qty: 14 RF: 0 Continued amlodipine 10 mg tablet 10 mg PO DAILY RF: 0 gabapentin 300 mg capsule 300 mg PO TID 30 Days Qty: 90 RF: 11 clonazepam [Klonopin] 0.5 MG tablet 2 mg PO PRN PRNRF: 0 prochlorperazine maleate 10 MG tablet 10 mg PO Q8H PRN Qty: 90 RF: 6 fluticasone propionate 50 mcg/actuation spray,suspension 2 spray MELISSA DAILY RF: 0 halobetasol propionate 0.05 % cream 1 applic TP BID RF: 0 riboflavin (vitamin B2) 100 mg tablet 200 mg PO DAILY RF: 0 loratadine 10 mg tablet 10 mg PO DAILY RF: 0 lisinopril 10 MG tablet 40 mg PO DAILY RF: 0 metoprolol succinate 50 MG tablet extended release 24 hr 1 tab PO DAILY RF: 0 omeprazole 20 MG capsule,delayed release(DR/EC) 2 tab PO DAILY RF: 0 thiamine mononitrate (vit B1) [Vitamin B-1 (mononitrate)] 100 MG tablet 100 mg PO DAILY RF: 0 diphenhydramine HCl 25 mg Tablet 25 mg PO Q4H PRNRF: 0 hydralazine 10 mg tablet 10 mg PO DAILY Qty: 3 RF: 0 Discharge Instructions Instructions: Cellulitis (ED) Additional Instructions: follow up with your primary care provider in 1 week especially if symptoms continue if you develop high fevers or severe worsening of pain return to the emergency department Medical Decision Making 34 yo female comes in with redness of anterior lower right leg. denies fevers or severe pain. She has an open wound of the right upper anterior lower leg with 3x4cm surrounding erythema that is warm to touch and no crepitus. HAs no abscess on bedside u/s but is consistent with cellulitlits and I suspect the open wound was an abscess that drained. Given lack of crepitus or severe pain doubt nec fasc and no fevers and apepras well systemically so doubt sepsis at this time. Will start po abx and advised f/u with pcp and return precautions given Differential Diagnosis Differential Diagnosis: cellulitis, abscess HPI General Mode of arrival: ambulatory . Date/Time Provider Initiated Documentation: 03/20/19 18:14 . Limitations to Documentation: no limitations . Information obtained by: patient . History of Present Illness 34 year old F presents to the emergency department with the chief complaint of right leg redness, described as moderate, Quality is described as aching, and is localized to the lower extremity. Patient reports no radiation. Patient started experiencing this day(s) (1) and it has been constant. No relieving factors improve symptom(s), No exacerbating factors reported . Patient did receive the following treatments prior to arrival, none Related Data Home Medications Medication Instructions Recorded Confirmed lisinopril 40 mg PO DAILY 01/22/13 03/20/19 metoprolol succinate 1 tab PO DAILY 01/21/14 03/20/19 omeprazole 2 tab PO DAILY 04/12/14 03/20/19 clonazepam [Klonopin] 2 mg PO PRN PRN tab-cap 11/04/14 03/20/19 prochlorperazine maleate 10 mg PO Q8H PRN #90 tab-cap 11/04/14 03/20/19 thiamine mononitrate (vit B1) 100 mg PO DAILY 11/09/17 03/20/19 [Vitamin B-1 (mononitrate)] diphenhydramine HCl 25 mg PO Q4H PRN 05/23/18 03/20/19 hydralazine 10 mg PO DAILY #3 tab 07/20/18 03/20/19 fluticasone propionate 50 2 spray MELISSA DAILY 10/01/18 03/20/19 mcg/actuation nasal spray,suspension halobetasol propionate 0.05 % 1 applic TP BID 10/01/18 03/20/19 topical cream loratadine 10 mg tablet 10 mg PO DAILY 10/01/18 03/20/19 riboflavin (vitamin B2) 100 mg 200 mg PO DAILY tab 10/01/18 03/20/19 tablet amlodipine 10 mg tablet 10 mg PO DAILY 12/10/18 03/20/19 gabapentin 300 mg capsule 300 mg PO TID 30 Days #90 cap 01/14/19 03/20/19 amoxicillin-pot clavulanate 1 tab PO BID #14 tab 03/20/19 [Augmentin] sulfamethoxazole-trimethoprim 1 tab PO BID #14 tab 03/20/19 [Bactrim DS] Previous Rx's Medication Instructions Recorded hydralazine 10 mg PO DAILY #3 tab 07/20/18 gabapentin 300 mg capsule 300 mg PO TID 30 Days #90 cap 01/14/19 amoxicillin-pot clavulanate 1 tab PO BID #14 tab 03/20/19 [Augmentin] sulfamethoxazole-trimethoprim 1 tab PO BID #14 tab 03/20/19 [Bactrim DS] Allergies Allergy/AdvReac Type Severity Reaction Status Date / Time hydrocodone bitartrate AdvReac increases Unverified 03/20/19 18:29 [From Vicodin] Resp rate General Stated Complaint: Cellulitis PIYUSH: 4 Review of Systems Review of Systems ROS Unobtainable: All systems reviewed & are unremarkable except as noted in HPI and below Constitutional Constitutional: Denies chills, Denies fever(s) and Denies weakness ENT Ears, Nose, Mouth, and Throat: Denies change in voice Cardiovascular Cardiovascular: Denies chest pain and Denies dyspnea Respiratory Respiratory: Denies cough and Denies dyspnea Gastrointestinal Gastrointestinal: Denies abdominal pain, Denies nausea and Denies vomiting Musculoskeletal Musculoskeletal: Denies joint swelling Neurologic Neurologic: Denies weakness Endocrine Endocrine: Denies heat intolerance [facility] Social History Smoking/Tobacco Use Status: Never Alcohol Intake: current Alcohol Intake frequency: holidays/special occasions only Drug use: Never Substance use type: does not use Household members: significant other and children Housing: apartment Number of Children: 3 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 What is your relationship status?: living with partner Panel score (0-1 are the most socially isolated patients): 1 What type of physical activity do you participate in: walking Do you feel safe at home: Yes Do you feel safe in your relationship?: Yes Exam Const General: no acute distress Orientation: alert HENMT Head: normal to inspection Ears: external ears normal General nose exam: external nose normal Mouth: moist mucous membranes Eyes General: appearance normal, both eyes and all related structures Neck Neck: normal visual inspection Resp Effort & Inspection: normal respiratory effort and able to speak in complete sentences Cardio Rate: regular rate Skin General skin exam: elasticity normal Neuro General: alert and oriented x3 Extrem General: full ROM and normal capillary refill Psych Mental Status: mental status grossly normal Course Vital Signs Vital signs: Vital Signs Temperature 36.4 C L 03/20/19 18:25 Pulse 101 H 03/20/19 18:25 Respiratory Rate 16 03/20/19 18:25 Blood Pressure 162/129 H 03/20/19 18:25 Pulse Oximetry 97 03/20/19 18:25 Temperature 36.4 C L 03/20/19 18:25 Temperature Source Temporal Artery Scan 03/20/19 18:25 Pulse 101 H 03/20/19 18:25 Respiratory Rate 16 03/20/19 18:25 Respiratory Effort Non-Labored 03/20/19 18:28 Blood Pressure 162/129 H 03/20/19 18:25 Blood Pressure Position Sitting 03/20/19 18:25 Pulse Oximetry 97 03/20/19 18:25 Oxygen Delivery Method Room Air 03/20/19 18:25 Oxygen Flow Rate 0 03/20/19 18:25 Pain Level 5 03/20/19 18:25
[2019-03-20] MEDS: Sulfameth/Trimeth DS TAB 1 TAB PO (18:54)
[2019-03-20] MEDS: Amoxicillin 875/Clav. 125 TAB PO (18:54)
[2019-03-20 18:57] VITALS: BP 162/129; PULSE 101; RESP 16; TEMP 36.4; O2SAT 97
== END 2019-03-20 18:58 | disposition home or self-care (01) ==
PROVIDERS: Emergency Provider Emergency Medicine; PCP Nurse Practitioner Family
DX: L03.115 Cellulitis of right lower limb (principal); S81.801A Unspecified open wound, right lower leg, initial encounter; X58.XXXA Exposure to other specified factors, initial encounter
CPT/HCPCS: 99283

== ENCOUNTER 2019-03-23 21:09 | Emergency (ER) | payer MEDICAID, SELFPAY ==
[2019-03-23 21:14] VITALS: BP 179/104; PULSE 107; RESP 22; TEMP 36.6; O2SAT 98
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
[2019-03-23 21:48] LABS: Abs Immature Grans 0.02 k/cumm (0.0-0.09); Absolute Basophil Count 0.03 k/cumm (0.0-0.2); Absolute Lymphocyte Count 2.54 k/cumm (1.2-3.4); Absolute Neutrophil Count 6.79 k/cumm (1.2-6.7); Basophils % 0.3; HGB 14.7 g/dL (12.0-15.5); Immature Grans % 0.2; Lactate 1.9 mmol/L (0.6-1.4); Lymphocytes % 25.2; Mean Corp. HGB Concentration 33.4 g/dL (32.0-36.0); Mean Corpuscular Hemoglobin 30.9 pg (27.0-33.0); Mean Corpuscular Volume 92.6 fL (80-95); Mean Platelet Volume 10.1 fL (8.0-11.0); Neutrophils % 67.3; Platelet Count 366 x1000/uL (130-400); RBC 4.75 m/cumm (4.00-5.20); RBC Distribution Width 13.2 % (11.7-14.6); White Blood Cell Count 10.08 k/cumm (4.4-10.8)
[2019-03-23] MEDS: CEFEPIME 2 GM in Normal Saline 100 ML IVPB (22:08)
[2019-03-23] MEDS: Normal Saline 1,000 ML 1000 ML IV (22:09)
[2019-03-23 22:13] LABS: ALT 34 U/L (14-59); AST 22 U/L (15-37); Albumin 3.8 g/dL (3.4-5.0); Alkaline Phosphatase 148 U/L (46-116); Anion Gap 11.9 mmol/L (3-11); BUN 8 mg/dL (7-18); Bilirubin, Total 0.4 mg/dL (0.2-1.0); CO2 26.1 mmol/L (21.0-32.0); CREATININE 1.05 mg/dL (0.55-1.02); Chloride 102 mmol/L (98-107); Glucose 158 mg/dL (70-100); Potassium 3.4 mmol/L (3.5-5.1); Sodium 140 mmol/L (136-145); Total Protein 8.2 g/dL (6.4-8.2)
[2019-03-23] MEDS: Ketorolac 15 MG/ML VIAL IVP (22:17)
[2019-03-23 22:32] VITALS: O2SAT 96
[2019-03-23 22:40] VITALS: O2SAT 96
[2019-03-23 22:46] VITALS: BP 140/77; PULSE 87; O2SAT 96
[2019-03-23 22:50] VITALS: O2SAT 95
[2019-03-23 23:09] VITALS: BP 140/77; PULSE 87; RESP 22; O2SAT 95
--- NOTE | 2019-03-24 09:46 | NUR.NOTE ---
Nursing Note: Referral faxed to PCP for follow up. [facility]
== END 2019-03-23 23:05 | disposition home or self-care (01) ==
PROVIDERS: Emergency Provider Emergency Medicine; PCP Nurse Practitioner Family
DX: L03.115 Cellulitis of right lower limb (principal); I10 Essential (primary) hypertension
CPT/HCPCS: 36415; 80053; 87040; 96361; 96365; 96375; 99284; 83605; 85025; 99283; J1885

== ENCOUNTER 2019-03-27 10:08 | Outpatient (REF) | payer MEDICAID, SELFPAY ==
[2019-03-27 13:24] LABS: TSH (W/Ref FT4) 3.06 uIU/mL (0.36-3.74)
== END 2019-03-27 10:28 ==
LOC: NCHCN 10:08
PROVIDERS: PCP Nurse Practitioner Family; Visit Provider Nurse Practitioner Family
DX: R61 Generalized hyperhidrosis (principal)
CPT/HCPCS: 84443

== ENCOUNTER 2019-04-21 18:14 | Emergency (ER) | payer MEDICAID, SELFPAY ==
[2019-04-21] VITALS (14 sets, daily range): BP systolic 165–182; BP diastolic 75–114; PULSE 94–122; RESP 16–18; TEMP 36.6; O2SAT 95–98
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
[2019-04-21] MEDS: Lidocaine/Epinephri/Tetracaine Topical Gel 3 ML TP (18:47)
[2019-04-21] MEDS: Normal Saline 1,000 ML 1000 ML IV ×2 (19:14→20:10)
[2019-04-21 19:17] LABS: Lactate 1.4 mmol/L (0.6-1.4)
[2019-04-21 19:26] LABS: Abs Immature Grans 0.04 k/cumm (0.0-0.09); Absolute Basophil Count 0.03 k/cumm (0.0-0.2); Absolute Eosinophil Count 0.18 k/cumm (0.0-0.7); Absolute Lymphocyte Count 2.99 k/cumm (1.2-3.4); Absolute Monocyte Count 0.72 k/cumm (0.11-0.7); Absolute Neutrophil Count 6.87 k/cumm (1.2-6.7); Basophils % 0.3; Eosinophils % 1.7; HCT 43.4 % (36.0-46.0); HGB 14.7 g/dL (12.0-15.5); Immature Grans % 0.4; Lymphocytes % 27.6; Mean Corp. HGB Concentration 33.9 g/dL (32.0-36.0); Mean Corpuscular Hemoglobin 31.5 pg (27.0-33.0); Mean Corpuscular Volume 93.1 fL (80-95); Mean Platelet Volume 9.9 fL (8.0-11.0); Monocytes % 6.6; Neutrophils % 63.4; Platelet Count 339 x1000/uL (130-400); RBC 4.66 m/cumm (4.00-5.20); RBC Distribution Width 13.4 % (11.7-14.6); White Blood Cell Count 10.84 k/cumm (4.4-10.8)
[2019-04-21 19:30] LABS: C-Reactive Protein 2.63 mg/dL (0.0-0.3)
[2019-04-21 19:35] LABS: ALT 31 U/L (14-59); AST 20 U/L (15-37); Albumin 3.7 g/dL (3.4-5.0); Alkaline Phosphatase 137 U/L (46-116); Anion Gap 9.4 mmol/L (3-11); BUN 10 mg/dL (7-18); Bilirubin, Total 0.4 mg/dL (0.2-1.0); CO2 29.6 mmol/L (21.0-32.0); CREATININE 0.97 mg/dL (0.55-1.02); Chloride 101 mmol/L (98-107); Glucose 121 mg/dL (70-100); Potassium 3.3 mmol/L (3.5-5.1); Sodium 140 mmol/L (136-145); Total Protein 7.9 g/dL (6.4-8.2)
[2019-04-21] MEDS: diphenhydrAMINE 50 MG/ML VIAL (19:50)
[2019-04-21] MEDS: methylPREDNISolone SUCC 125 MG VIAL IVP (20:04)
[2019-04-21] MEDS: Prochlorperazine 10 MG TAB PO (20:17)
[2019-04-21 20:29] LABS: ESR 25 mm/hr (0-20)
--- NOTE | 2019-04-21 20:29 | NUR.NOTE ---
after turning off the vancomycin at 1950 all IV tubing was changed and a new bag of saline was started as a bolus since only 100 cc missing from first bag Nursing Note:
--- NOTE | 2019-04-21 20:37 | DI.CT_ITS ---
EXAM: CT LOWER EXTREMITY RT W CLINICAL HISTORY: abscess TECHNIQUE: CT examination of the right knee was performed utilizing multi slice acquisition and mult iplanar reconstruction following intravenous infusion of 100 cc of Omnipaque 350. FINDINGS: No bony abnormality is seen with no evidence of a destructive or erosive lesion. There is skin thic kening and soft tissue edema of the region of the patellar tendon. No evidence of abscess. No enhan cing mass seen. IMPRESSION: Nonspecific soft tissue edema of the anterior knee, particularly about the patella and infrapatellar tendon. No evidence of abscess or osteomyelitis by CT criteria.
[2019-04-21] MEDS: Omnipaque 350 MG/ML 100 ML BTL IJ (21:20)
--- NOTE | 2019-04-21 22:01 | DI.VRAD_ITS ---
PROCEDURE INFORMATION: Exam: CT Right Lower Extremity With Contrast, Knee Exam date and time: 04/21/2019 8:57 PM Clinical history: 34 years old, female; Other: Abscess TECHNIQUE: Imaging protocol: CT of the Right lower extremity with intravenous contrast was performed. Exam focused on the knee. COMPARISON: CR RIGHT KNEE 3 VIEWS 08/13/2014 4:45 PM FINDINGS: Bones/joints: No acute fracture or dislocation. No joint effusion. Soft tissues: There is focal skin thickening of the anterolateral right knee centered over the patellar tendon with associated moderate underlying fascial thickening of the subcutaneous fat of the anterolateral right knee as well as the anterior imaged right martel. There is trace lacelike low attenuation fluid along areas of fascial thickening within the anterior subcutaneous fat. No subcutaneous emphysema. There is no discrete drainable subcutaneous fluid collection. Patellar tendon is within normal limits for attenuation and AP thickness. Vasculature: Popliteal artery and its major branches are patent. IMPRESSION: Focal skin thickening of the anterolateral right knee, centered over the patellar tendon, with moderate underlying fascial thickening with trace lacelike low attenuation fluid along the fascia of the anterior knee and imaged proximal right martel. No discrete drainable soft tissue fluid collection identified. Imaging appearance compatible with infectious/inflammatory process such as cellulitis in appropriate setting. Correlate clinically to exclude posttraumatic edema. Dictated and Authenticated by: Jeff Johnson MD. Ordering:JANETTE Bhatti MD
[2019-04-21] MEDS: CLINDAMYCIN 900 MG/50 ML BAG 50 MG IVPB (22:13)
[2019-04-21] MEDS: Clindamycin 150 MG CAP 450 MG PO (23:07)
== END 2019-04-21 22:55 | disposition home or self-care (01) ==
PROVIDERS: Emergency Provider Physician Assistant; PCP Nurse Practitioner Family
DX: L02.415 Cutaneous abscess of right lower limb (principal); L03.115 Cellulitis of right lower limb; I10 Essential (primary) hypertension
CPT/HCPCS: 36415; 80053; 85652; 87040; 96361; 96365; 96375; 99284; 73701; 83605; 85025; 86140; J1200; J2930; J3490

== ENCOUNTER 2019-06-06 01:49 | Outpatient (CLI) | payer MEDICAID, SELFPAY ==
--- NOTE | 2019-06-06 08:30 | DI.MRI_ITS ---
EXAM: MR LUMBAR SPINE WO CLINICAL HISTORY: BACK PAIN, LUMBAR W/ RADICULOPATHY M54.16. TECHNIQUE: Multiplanar multisequence MRI was performed. COMPARISON: No exams were available for comparison FINDINGS: MR examination of the lumbosacral spine was performed according to the usual protocol. No significan t bony signal abnormality seen. Conus medullaris appears intact. No evidence of bony central canal spinal stenosis or neural foraminal stenosis. At L4-5, there is a small central disc herniation without evidence of significant neural impingement. No other significant findings at L4-5. At L5-S1, there is a mild broad-based disc bulge, no focal disc herniation seen. There are mild changes of facet hypertrophy at L3-4 and to a lesser degree at L4-5 and L5-S1. No bon y impingement on neural structures. Incidental note is made of left renal cortical cyst. IMPRESSION: 1. Small central disc herniation at L4-5. 2. Mild disc bulge at L5-S1 without focal disc herniation.
== END 2019-06-06 02:09 ==
PROVIDERS: PCP Nurse Practitioner Family; Visit Provider Nurse Practitioner Family
DX: M54.16 Radiculopathy, lumbar region (principal); M51.16 Intervertebral disc disorders with radiculopathy, lumbar region; M51.17 Intervertebral disc disorders with radiculopathy, lumbosacral region
CPT/HCPCS: 72148

== ENCOUNTER 2019-06-29 18:22 | Emergency (ER) | payer MEDICAID, SELFPAY ==
[2019-06-29 18:25] VITALS: BP 143/89; PULSE 128; RESP 22; TEMP 37; O2SAT 97
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
[2019-06-29] MEDS: Normal Saline 1,000 ML 1000 ML IV ×3 (18:41→20:51)
[2019-06-29] MEDS: Ondansetron 4 MG/2 ML VIAL IVP (18:41)
[2019-06-29 18:45] LABS: Abs Immature Grans 0.04 k/cumm (0.0-0.09); Absolute Basophil Count 0.01 k/cumm (0.0-0.2); Absolute Eosinophil Count 0.09 k/cumm (0.0-0.7); Absolute Monocyte Count 0.51 k/cumm (0.11-0.7); Basophils % 0.1; Eosinophils % 1.2; HCT 42.3 % (36.0-46.0); HGB 14.4 g/dL (12.0-15.5); Immature Grans % 0.5; Lymphocytes % 25.2; Mean Platelet Volume 9.6 fL (8.0-11.0); Monocytes % 6.8; Neutrophils % 66.2; Platelet Count 342 x1000/uL (130-400); RBC Distribution Width 13.7 % (11.7-14.6); White Blood Cell Count 7.55 k/cumm (4.4-10.8)
[2019-06-29 18:55] LABS: ALT 30 U/L (14-59); AST 20 U/L (15-37); Albumin 3.6 g/dL (3.4-5.0); Alkaline Phosphatase 114 U/L (46-116); BUN 10 mg/dL (7-18); Bilirubin, Total 0.4 mg/dL (0.2-1.0); CREATININE 0.77 mg/dL (0.55-1.02); Chloride 103 mmol/L (98-107); Glucose 109 mg/dL (74-106); Magnesium 1.8 mg/dL (1.8-2.4); Potassium 3.5 mmol/L (3.5-5.1); Sodium 138 mmol/L (136-145); Total Protein 7.3 g/dL (6.4-8.2)
[2019-06-29 21:00] VITALS: BP 143/82; PULSE 90; RESP 16; O2SAT 99
[2019-06-29 21:58] LABS: Bilirubin Negative (Negative); Blood Trace-intact (Negative); Clarity Clear (Clear); Glucose Negative (Negative); Ketones Negative (Negative); Leukocyte Esterase Negative (Negative); Nitrite Negative (Negative); pH 5.5 (5-8)
[2019-06-29 22:08] LABS: Bacteria Few HPF (Negative); C & S Indicated? No; Crystals Negative HPF (Negative); Epithelial Cells Moderate HPF (Negative); Mucus Moderate (Negative); WBC 0-2 HPF (0-5)
[2019-06-29] MEDS: Ondansetron O.D.T. 4 MG TABEF, 3 TABS/BTL PO (22:15)
[2019-06-29 22:20] VITALS: BP 141/81; PULSE 89; RESP 16; O2SAT 99
== END 2019-06-29 22:20 | disposition home or self-care (01) ==
PROVIDERS: Emergency Provider Emergency Medicine; PCP Nurse Practitioner Family
DX: A08.4 Viral intestinal infection, unspecified (principal); R50.9 Fever, unspecified; I10 Essential (primary) hypertension
CPT/HCPCS: 36415; 80053; 81025; 87449; 96361; 96374; 99284; 81003; 81015; 83735; 85025; J2405

== ENCOUNTER 2019-07-22 08:24 | Outpatient (CLI) | payer MEDICAID, SELFPAY ==
--- NOTE | 2019-07-22 07:53 | DI.RAD_ITS ---
EXAM: XR HIP PELVIS ADULT BL CLINICAL HISTORY: pain in b/l groins/ASIS, right hip flexor weakness, pain both hips, M25.551. TECHNIQUE: 2D digital imaging was performed. COMPARISON: LUMBAR SPINE COMPLETE from 10/19/2017 FINDINGS: BONES: No acute fracture is present. No bony destructive lesion is seen. JOINTS: No dislocation present. SOFT TISSUE: Normal. IMPRESSION: Unremarkable radiographs of bilat hips. Unremarkable radiographs of the pelvis
== END 2019-07-22 08:44 ==
PROVIDERS: PCP Nurse Practitioner Family; Visit Provider Nurse Practitioner Family
DX: M25.551 Pain in right hip (principal); M25.552 Pain in left hip
CPT/HCPCS: 73521

== ENCOUNTER 2019-08-08 17:31 | Emergency (ER) | payer MEDICAID, SELFPAY ==
[2019-08-08 17:49] VITALS: BP 130/62; PULSE 96; TEMP 36.7; O2SAT 97
--- NOTE | 2019-08-08 18:04 | ED.GENADUL_ITS ---
Discharge Plan Disposition Patient Disposition: HOME Condition: Stable Discharge Details Chief Complaint: EarProblem Clinical Impression: Acute otitis media Primary Care Provider: Lesley Grace ED Provider: Gilbert Alvarez [place] Meds and New Rx's Prescriptions: New amoxicillin-pot clavulanate [Augmentin] 875-125 mg tablet 1 tab PO BID Qty: 14 RF: 0 Continued amlodipine 10 mg tablet 10 mg PO DAILY RF: 0 gabapentin 300 mg capsule 300 mg PO TID 30 Days Qty: 90 RF: 11 clonazepam [Klonopin] 0.5 MG tablet 2 mg PO PRN PRNRF: 0 prochlorperazine maleate 10 MG tablet 10 mg PO Q8H PRN Qty: 90 RF: 6 fluticasone propionate 50 mcg/actuation spray,suspension 2 spray MELISSA DAILY RF: 0 halobetasol propionate 0.05 % cream 1 applic TP BID RF: 0 riboflavin (vitamin B2) 100 mg tablet 200 mg PO DAILY RF: 0 loratadine 10 mg tablet 10 mg PO DAILY RF: 0 lisinopril 10 MG tablet 40 mg PO DAILY RF: 0 metoprolol succinate 50 MG tablet extended release 24 hr 1 tab PO DAILY RF: 0 omeprazole 20 MG capsule,delayed release(DR/EC) 2 tab PO DAILY RF: 0 diphenhydramine HCl 25 mg Tablet 25 mg PO Q4H PRNRF: 0 hydralazine 10 mg tablet 10 mg PO DAILY Qty: 3 RF: 0 duloxetine [Cymbalta] 30 mg Capsule,Delayed Release(Dr/Ec) 30 mg PO DAILY RF: 0 Discharge Instructions Instructions: Otitis Media (ED) Additional Instructions: If not better within a week if you feel more ill, have worsening difficulty breathing or high fevers return to the emergency department Medical Decision Making 34 yo female with hx of htn, gerd, asthma, comes in with cc of right ear pain. She has had sinusitis symptoms of sinus pain and pressure and nasal congestion for 5 days and now has had right ear pain for 2 days. No fevers, discharge, rashes, vomit, dyspnea. Is in no distress on exam. normal left tm, right tm is red and bulging, has clear rhinorrhea, no skin changes or swelling. Suspect sinusitis with acute otitis media. Will treat with augmentin and advised f/u with pcp if not better within a week and return precautions given Differential Diagnosis Differential Diagnosis: sinusitis, otitis media, uri HPI General Mode of arrival: ambulatory . Date/Time Provider Initiated Documentation: 08/08/19 17:40 . Limitations to Documentation: no limitations . Information obtained by: patient . History of Present Illness 34 year old F presents to the emergency department with the chief complaint of ear pain, described as moderate, and it has been constant. No relieving factors improve symptom(s), No exacerbating factors reported . Patient did receive the following treatments prior to arrival, none Related Data Home Medications Medication Instructions Recorded Confirmed lisinopril 40 mg PO DAILY 01/22/13 08/08/19 metoprolol succinate 1 tab PO DAILY 01/21/14 08/08/19 omeprazole 2 tab PO DAILY 04/12/14 08/08/19 clonazepam [Klonopin] 2 mg PO PRN PRN tab-cap 11/04/14 08/08/19 prochlorperazine maleate 10 mg PO Q8H PRN #90 tab-cap 11/04/14 08/08/19 diphenhydramine HCl 25 mg PO Q4H PRN 05/23/18 08/08/19 hydralazine 10 mg PO DAILY #3 tab 07/20/18 08/08/19 fluticasone propionate 50 2 spray MELISSA DAILY 10/01/18 08/08/19 mcg/actuation nasal spray,suspension halobetasol propionate 0.05 % 1 applic TP BID 10/01/18 08/08/19 topical cream loratadine 10 mg tablet 10 mg PO DAILY 10/01/18 08/08/19 riboflavin (vitamin B2) 100 mg 200 mg PO DAILY tab 10/01/18 08/08/19 tablet amlodipine 10 mg tablet 10 mg PO DAILY 12/10/18 08/08/19 gabapentin 300 mg capsule 300 mg PO TID 30 Days #90 cap 01/14/19 08/08/19 duloxetine [Cymbalta] 30 mg PO DAILY 03/23/19 08/08/19 amoxicillin-pot clavulanate 1 tab PO BID #14 tab 08/08/19 [Augmentin] Previous Rx's Medication Instructions Recorded hydralazine 10 mg PO DAILY #3 tab 07/20/18 gabapentin 300 mg capsule 300 mg PO TID 30 Days #90 cap 07/09/19 amoxicillin-pot clavulanate 1 tab PO BID #14 tab 08/08/19 [Augmentin] Allergies Allergy/AdvReac Type Severity Reaction Status Date / Time vancomycin Allergy Severe Itching Verified 08/08/19 17:53 hydrocodone bitartrate AdvReac increases Verified 08/08/19 17:53 [From Vicodin] Resp rate General Stated Complaint: EyeProblem PIYUSH: 4 Review of Systems All systems reviewed & are unremarkable except as noted in HPI and below Constitutional Constitutional: Denies chills, Denies fever(s) and Denies weakness Cardiovascular Cardiovascular: Denies chest pain and Denies dyspnea Respiratory Respiratory: Denies cough and Denies dyspnea Gastrointestinal Gastrointestinal: Denies abdominal pain, Denies nausea and Denies vomiting Genitourinary Genitourinary: Denies dysuria Musculoskeletal Musculoskeletal: Denies joint swelling Integumentary/Breasts Skin/Breast: Denies rash Neurologic Neurologic: Denies weakness Endocrine Endocrine: Denies heat intolerance Allergic/Immunologic Allergic/Immunologic: Denies urticaria PFSH Social History Smoking/Tobacco Use Status: Former Tobacco Use Alcohol Intake: current Alcohol Intake frequency: holidays/special occasions only Drug use: Never Substance use type: does not use Household members: significant other and children Housing: apartment Number of Children: 3 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 What is your relationship status?: living with partner Panel score (0-1 are the most socially isolated patients): 1 What type of physical activity do you participate in: walking Do you feel safe at home: Yes Do you feel safe in your relationship?: Yes Exam Const General: no acute distress Orientation: alert HENMT Head: normal to inspection Ears: external ears normal General nose exam: external nose normal Mouth: moist mucous membranes Eyes General: appearance normal, both eyes and all related structures Neck Neck: normal visual inspection Resp Effort & Inspection: normal respiratory effort and able to speak in complete sentences Cardio Rate: regular rate Skin General skin exam: no rashes or lesions noted Neuro General: alert and oriented x3 Extrem General: normal to inspection Psych Mental Status: mental status grossly normal Course Vital Signs Vital signs: Vital Signs Temperature 36.7 C 08/08/19 17:49 Pulse 96 H 08/08/19 17:49 Blood Pressure 130/62 08/08/19 17:49 Pulse Oximetry 97 08/08/19 17:49 Temperature 36.7 C 08/08/19 17:49 Pulse 96 H 08/08/19 17:49 Blood Pressure 130/62 08/08/19 17:49 Blood Pressure Position Sitting 08/08/19 17:49 Pulse Oximetry 97 08/08/19 17:49 Oxygen Delivery Method Room Air 08/08/19 17:49 Oxygen Flow Rate 0 08/08/19 17:49 Pain Level 9 08/08/19 17:49
== END 2019-08-08 18:16 | disposition home or self-care (01) ==
LOC: ER 18:11
PROVIDERS: Emergency Provider Emergency Medicine; PCP Nurse Practitioner Family
DX: H92.01 Otalgia, right ear (principal); J01.90 Acute sinusitis, unspecified; I10 Essential (primary) hypertension; Z87.891 Personal history of nicotine dependence
CPT/HCPCS: 99283

== ENCOUNTER 2019-08-16 14:42 | Emergency (ER) | payer MEDICAID, SELFPAY ==
[2019-08-16 14:51] VITALS: BP 158/94; PULSE 104; RESP 18; TEMP 36.1; O2SAT 104
--- NOTE | 2019-08-16 15:04 | W.ED.GENAD ---
Discharge Plan Disposition Patient Disposition: HOME Condition: Stable Discharge Details Chief Complaint: Cellulitis Clinical Impression: Cellulitis of head or scalp Primary Care Provider: Lesley Grace ED Provider: Zaid Ghotra Home Meds and New Rx's Prescriptions: New sulfamethoxazole-trimethoprim [Bactrim DS] 800-160 mg tablet 1 tab PO BID 10 Days Qty: 14 RF: 0 cefdinir 300 mg capsule 300 mg PO Q12H 10 Days Qty: 20 RF: 0 No Action amlodipine 10 mg tablet 10 mg PO DAILY RF: 0 gabapentin 300 mg capsule 300 mg PO TID 30 Days Qty: 90 RF: 11 clonazepam [Klonopin] 0.5 MG tablet 2 mg PO PRN PRNRF: 0 prochlorperazine maleate 10 MG tablet 10 mg PO Q8H PRN Qty: 90 RF: 6 fluticasone propionate 50 mcg/actuation spray,suspension 2 spray MELISSA DAILY RF: 0 halobetasol propionate 0.05 % cream 1 applic TP BID RF: 0 riboflavin (vitamin B2) 100 mg tablet 200 mg PO DAILY RF: 0 loratadine 10 mg tablet 10 mg PO DAILY RF: 0 lisinopril 10 MG tablet 40 mg PO DAILY RF: 0 metoprolol succinate 50 MG tablet extended release 24 hr 1 tab PO DAILY RF: 0 omeprazole 20 MG capsule,delayed release(DR/EC) 2 tab PO DAILY RF: 0 diphenhydramine HCl 25 mg Tablet 25 mg PO Q4H PRNRF: 0 hydralazine 10 mg tablet 10 mg PO DAILY Qty: 3 RF: 0 duloxetine [Cymbalta] 30 mg Capsule,Delayed Release(Dr/Ec) 30 mg PO DAILY RF: 0 Discharge Instructions Instructions: Abscess (ED) Additional Instructions: Warm compress to area to speed healing. Take antibiotics as prescribed. Our care management team will arrange a follow-up for you in clinic with Dr. Grace. Return for any acute concerns. Discharge Data Discharge Date/Time-TO BE ENTERED AT DEPARTURE: 08/16/19 15:39 Medical Decision Making 34-year-old female presents with a folliculitis to the vertex of her scalp and right facial swelling with edema. She has a history of MRSA in the past. The area was cultured, it is already draining and does not require incision. Given the history of MRSA I will place her on both Bactrim and a cephalosporin. She will have follow-up arranged in clinic. Prior to discharge, patient voiced dissatisfaction with her visit to the nursing staff. She stated she would not fill her prescriptions. She refused to be evaluated by myself again. Nursing encouraged her to fill the antibiotic prescriptions as well as follow-up in clinic as care management will arrange. She subsequently voluntarily left the ER refusing any further evaluation. HPI General Mode of arrival: ambulatory. Date/Time Provider Initiated Documentation: 08/16/19 14:43. Limitations to Documentation: no limitations. Information obtained by: patient. History of Present Illness 34 year old F presents to the emergency department with the chief complaint of Scalp lesion and right face swelling, described as moderate, Quality is described as dull, and is localized to the head and right. Patient started experiencing this day(s) and it has been constant. No relieving factors improve symptom(s), No exacerbating factors reported . Patient notes denies fever/chills. Patient did receive the following treatments prior to arrival, none Related Data Home Medications Medication Instructions Recorded Confirmed lisinopril 40 mg PO DAILY 01/22/13 08/08/19 metoprolol succinate 1 tab PO DAILY 01/21/14 08/08/19 omeprazole 2 tab PO DAILY 04/12/14 08/08/19 clonazepam [Klonopin] 2 mg PO PRN PRN tab-cap 11/04/14 08/08/19 prochlorperazine maleate 10 mg PO Q8H PRN #90 tab-cap 11/04/14 08/08/19 diphenhydramine HCl 25 mg PO Q4H PRN 05/23/18 08/08/19 hydralazine 10 mg PO DAILY #3 tab 07/20/18 08/08/19 fluticasone propionate 50 2 spray MELISSA DAILY 10/01/18 08/08/19 mcg/actuation nasal spray,suspension halobetasol propionate 0.05 % 1 applic TP BID 10/01/18 08/08/19 topical cream loratadine 10 mg tablet 10 mg PO DAILY 10/01/18 08/08/19 riboflavin (vitamin B2) 100 mg 200 mg PO DAILY tab 10/01/18 08/08/19 tablet amlodipine 10 mg tablet 10 mg PO DAILY 12/10/18 08/08/19 gabapentin 300 mg capsule 300 mg PO TID 30 Days #90 cap 01/14/19 08/08/19 duloxetine [Cymbalta] 30 mg PO DAILY 03/23/19 08/08/19 cefdinir 300 mg PO Q12H 10 Days #20 cap 08/16/19 sulfamethoxazole-trimethoprim 1 tab PO BID 10 Days #14 tab 08/16/19 [Bactrim DS] Previous Rx's Medication Instructions Recorded hydralazine 10 mg PO DAILY #3 tab 07/20/18 gabapentin 300 mg capsule 300 mg PO TID 30 Days #90 cap 01/14/19 cefdinir 300 mg PO Q12H 10 Days #20 cap 08/16/19 sulfamethoxazole-trimethoprim 1 tab PO BID 10 Days #14 tab 08/16/19 [Bactrim DS] Allergies Allergy/AdvReac Type Severity Reaction Status Date / Time vancomycin Allergy Severe Itching Verified 08/16/19 14:56 hydrocodone bitartrate AdvReac increases Verified 08/16/19 14:56 [From Vicodin] Resp rate General Stated Complaint: Cellulitis PIYUSH: 3 Review of Systems Narrative: History of MRSA. No fall or injury. No fever. Swallowing normally. 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 Pleasant, well groomed, interactive. HEAD: Normocephalic, atraumatic. Folliculitis with draining purulent fluid on the scalp at vertex. No significant fluctuance/mass. ENT: Mild right posterior auricular soft tissue swelling that is tender. Mucous membranes moist, oropharynx unremarkable, External ear exam unremarkable EYES: PERRL, EOMI NECK: Full ROM, no SOHA, no menigismus. The right posterior auricular and neck tissues are mildly edematous with tenderness to palpation there is no focal pointing fluctuance. CHEST/RESP: Nontender, clear to auscultation bilateral, no wheeze/rhonchi/rales CARDIOVASCULAR: RRR, no murmur, rub marsha. 2+ Rad pulse bilateral EXT: Full ROM, no edema, no rash Neuro: Grossly normal neurologic exam, conversant, interactive. Psych: Speech fluent, thoughts congruent, affect mildly agitated Course Vital Signs Vital signs: Vital Signs Temperature 36.1 C L 08/16/19 14:51 Pulse 104 H 08/16/19 14:51 Respiratory Rate 18 08/16/19 14:51 Blood Pressure 158/94 H 08/16/19 14:51 Pulse Oximetry 104 H 08/16/19 14:51 Temperature 36.1 C L 08/16/19 14:51 Temperature Source Temporal Artery Scan 08/16/19 14:51 Pulse 104 H 08/16/19 14:51 Respiratory Rate 18 08/16/19 14:51 Respiratory Effort 08/16/19 14:53 Blood Pressure 158/94 H 08/16/19 14:51 Blood Pressure Position Sitting 08/16/19 14:51 Pulse Oximetry 104 H 08/16/19 14:51 Oxygen Delivery Method Room Air 08/16/19 14:51 Oxygen Flow Rate 0 08/16/19 14:51 Pain Level 10 08/16/19 14:51
--- NOTE | 2019-08-16 15:31 | NUR.NOTE ---
pt became beligerant when nurse arrived with discharge instruction and prescriptions . : this neck swelling is not related to the thing on my head i am not going to fill these rx ocviously the Dr does not care and I am being rushed out. I will be filing a complaint nurse offerd to send the MD back in to talk to her. she refused and statesd that she did not want to see him him again because i will not be nice . she did recieve her dishcarge instruction and rx's Nursing Note: with an explanation of why she should fill them and use them. lshe signed her name and left the department .
--- NOTE | 2019-08-16 18:32 | NUR.NOTE ---
Nursing Note: Referral faxed to PCP for follow up. [facility]
== END 2019-08-16 15:39 | disposition home or self-care (01) ==
PROVIDERS: Emergency Provider Emergency Medicine; PCP Nurse Practitioner Family
DX: L03.811 Cellulitis of head [any part, except face] (principal); R22.0 Localized swelling, mass and lump, head; Z53.29 Procedure and treatment not carried out because of patient's decision for other reasons
CPT/HCPCS: 87077; 99283; 87070; 87186

== ENCOUNTER 2019-12-31 13:23 | Outpatient (REF) | payer MEDICAID, SELFPAY ==
[2019-12-31 16:47] LABS: ALT 33 U/L (14-59); AST 24 U/L (15-37); Alkaline Phosphatase 107 U/L (46-116); Anion Gap 10.5 mmol/L (3-11); BUN 9 mg/dL (7-18); Bilirubin, Total 0.4 mg/dL (0.2-1.0); CO2 24.5 mmol/L (21.0-32.0); CREATININE 0.82 mg/dL (0.55-1.02); Chloride 105 mmol/L (98-107); Glucose 89 mg/dL (74-106); Potassium 4.2 mmol/L (3.5-5.1); Sodium 140 mmol/L (136-145); Total Protein 7.7 g/dL (6.4-8.2)
== END 2019-12-31 13:43 ==
LOC: NCHCN 13:23
PROVIDERS: PCP Nurse Practitioner Family; Visit Provider Nurse Practitioner
DX: I10 Essential (primary) hypertension (principal)
CPT/HCPCS: 80053

== ENCOUNTER 2020-07-30 18:29 | Outpatient (REF) | payer MEDICAID, SELFPAY ==
[2020-07-30 18:02] LABS: HCT 44.8 % (36.0-46.0); HGB 15.2 g/dL (11.2-15.7); MCH 32.1 pg (27.0-33.0); MCHC 33.9 % (32.0-36.0); MCV 94.7 fL (80-95); MPV 11.5 fL (8.0-11.0); Platelet Count 368 10^3/uL (130-400); RBC 4.73 10^6/uL (3.93-5.22); RDW 12.7 % (11.7-14.6); WBC 10.99 10^3/uL (4.4-10.8)
[2020-07-30 18:38] LABS: Abs Immature Grans 0.04 10^3/uL (0.0-0.06); Absolute Basophil Count 0.05 10^3/uL (0.0-0.2); Absolute Eosinophil Count 0.23 10^3/uL (0.0-0.7); Absolute Lymphocyte Count 3.21 10^3/uL (1.2-3.4); Absolute Monocyte Count 0.76 10^3/uL (0.1-0.8); Absolute Neutrophil Count 6.62 10^3/uL (1.2-6.7); Basophils % 0.5; Eosinophils % 2.1; Immature Grans % 0.4; Lymphocytes % 29.4; Neutrophils % 60.6
[2020-07-30 18:41] LABS: Anion Gap 10.4 mmol/L (3-11); BUN 12 mg/dL (7-18); CO2 23.6 mmol/L (21.0-32.0); CREATININE 0.79 mg/dL (0.55-1.02); Calcium 9.1 mg/dL (8.5-10.1); Chloride 103 mmol/L (98-107); Glucose 127 mg/dL (74-106); Potassium 4.8 mmol/L (3.5-5.1); Sodium 137 mmol/L (136-145); TSH (W/Ref FT4) 2.11 uIU/mL (0.36-3.74)
[2020-08-01 10:31] LABS: COVID-19 RT-PCR Result NEGATIVE (Negative)
== END 2020-07-30 18:49 ==
LOC: NCHCN 18:29
PROVIDERS: PCP Nurse Practitioner Family; Visit Provider Nurse Practitioner Family
DX: R53.83 Other fatigue (principal)
CPT/HCPCS: 80048; 85027; U0003; 84443; 85007

== ENCOUNTER 2020-08-27 13:32 | Outpatient (REF) | payer MEDICAID, SELFPAY ==
[2020-08-27 16:44] LABS: Hemoglobin A1C 6.3 % (<5.7)
== END 2020-08-27 13:33 | disposition home or self-care (01) ==
LOC: NCHCN 13:32
PROVIDERS: PCP Nurse Practitioner Family; Visit Provider Nurse Practitioner Family
DX: R73.03 Prediabetes (principal); I10 Essential (primary) hypertension
CPT/HCPCS: 83036

== ENCOUNTER 2020-09-24 04:05 | Outpatient (CLI) | payer MEDICAID, SELFPAY ==
--- NOTE | 2020-09-24 | DI.CT_ITS ---
EXAM: CT RENAL COLIC WO CLINICAL HISTORY: FLANK PAIN, R10.9,HEMATURIA,R31.9. TECHNIQUE: Imaging Protocol: Axial computed tomography images with coronal and sagittal reformatted images were created and reviewed. CONTRAST MATERIAL: Noncontrast COMPARISON: CT CT chest PE CTA from 07/20/2018 FINDINGS: ABDOMEN: Liver: Mildly enlarged. Mild to moderate fatty infiltration.. No measurable mass. Gallbladder and biliary tract: No radiodense calculus or dilation. Pancreas: Normal density, no calcifications or inflammatory process. Spleen: Normal. Kidneys: Normal size, contour and axis. No radiodense stones or obstructive uropathy. No masses seen. Adrenal glands: No masses seen. Abdominal Aorta: Abdominal portion non-dilated. Mild calcification. PELVIS: Bladder: Symmetric distention, no gross wall thickening. Bowel: Normal appendix. No obstruction or bowel wall thickening. Reproductive: Status post hysterectomy. Ovaries normal in size. Peritoneal cavity: No ascites, braydon ection or mesenteric inflammatory response. Bones: Within normal limits. IMPRESSION: Unremarkable CT scan of the abdomen and pelvis.No evidence of urinary tract calculi or hydronephrosis . RADIATION DOSE DELIVERED: 1,284.88mGy.cm Total DLP DATA REPOSITORY: All CT scans at this facility are submitted to the National Radiology Data Registry (NRDR) Dose Index Registry (DIR) with the [employer] (ACR). RADIATION OPTIMIZATION: All CT scans at this facility use at least one of these dose optimization te chniques: automated exposure control; mA and/or kV adjustment per patient size (includes targeted exa ms where dose is matched to clinical indication); or iterative reconstruction.
== END 2020-09-24 04:25 ==
PROVIDERS: PCP Nurse Practitioner Family; Visit Provider Nurse Practitioner Family
DX: R10.9 Unspecified abdominal pain (principal); R31.9 Hematuria, unspecified
CPT/HCPCS: 74176

== ENCOUNTER 2020-11-29 19:46 | Emergency (ER) | payer MEDICAID, SELFPAY ==
[2020-11-29 19:56] VITALS: BP 170/130; PULSE 124; RESP 20; TEMP 37; O2SAT 96
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
[2020-11-29 20:33] VITALS: BP 146/106; PULSE 108; RESP 18; TEMP 36; O2SAT 98
[2020-11-29] MEDS: Ketorolac 30 MG/ML VIAL IM (20:37)
[2020-11-29] MEDS: Cephalexin 500 MG CAP, 4 CAPS/BTL PO (20:43)
[2020-11-29] MEDS: Sulfameth/Trimeth DS, 2 TABS/BTL 1 TAB PO (20:43)
== END 2020-11-29 20:45 | disposition home or self-care (01) ==
PROVIDERS: Emergency Provider Physician Assistant; PCP Nurse Practitioner Family
DX: L03.221 Cellulitis of neck (principal)
CPT/HCPCS: 96372; 99284; 99283; J1885

== ENCOUNTER 2021-05-21 19:02 | Outpatient (REF) | payer MEDICAID, SELFPAY ==
[2021-05-23 13:30] LABS: COVID-19 RT-PCR UVMMC Result Positive (Negative)
== END 2021-05-21 19:03 | disposition home or self-care (01) ==
LOC: LBN 19:02
PROVIDERS: PCP Nurse Practitioner Family; Visit Provider Family Medicine
DX: Z20.822 Contact with and (suspected) exposure to COVID-19 (principal); J06.9 Acute upper respiratory infection, unspecified
CPT/HCPCS: U0003

== ENCOUNTER 2021-07-26 18:35 | Outpatient (REF) | payer MEDICAID, SELFPAY ==
[2021-07-26 16:06] LABS: Anion Gap 10.8 mmol/L (3-11); BUN 9 mg/dL (7-18); CO2 25.2 mmol/L (21.0-32.0); CREATININE 0.8 mg/dL (0.55-1.02); Calcium 9.1 mg/dL (8.5-10.1); Chloride 102 mmol/L (98-107); Glucose 94 mg/dL (74-106); Potassium 4.3 mmol/L (3.5-5.1); Sodium 138 mmol/L (136-145)
== END 2021-07-26 18:36 | disposition home or self-care (01) ==
LOC: NCHCN 18:35
PROVIDERS: PCP Nurse Practitioner Family; Visit Provider Nurse Practitioner Family
DX: I10 Essential (primary) hypertension (principal); R73.03 Prediabetes
CPT/HCPCS: 80048; 83036

== ENCOUNTER 2021-08-16 15:55 | Outpatient (CLI) | payer MEDICAID, SELFPAY ==
[2021-08-16 15:39] LABS: Abs Immature Grans 0.03 10^3/uL (0.0-0.06); Absolute Basophil Count 0.05 10^3/uL (0.0-0.2); Absolute Eosinophil Count 0.24 10^3/uL (0.0-0.7); Absolute Lymphocyte Count 4.35 10^3/uL (1.2-3.4); Absolute Monocyte Count 0.91 10^3/uL (0.1-0.8); Absolute Neutrophil Count 5.78 10^3/uL (1.2-6.7); Basophils % 0.4; Eosinophils % 2.1; HCT 44.8 % (36.0-46.0); HGB 15.2 g/dL (11.2-15.7); Immature Grans % 0.3; Lymphocytes % 38.3; MCH 31.5 pg (27.0-33.0); MCHC 33.9 % (32.0-36.0); MCV 92.8 fL (80-95); MPV 9.7 fL (8.0-11.0); Neutrophils % 50.9; Nucleated RBC 0 %; Platelet Count 348 10^3/uL (130-400); RBC 4.83 10^6/uL (3.93-5.22); RDW 12.7 % (11.7-14.6); RDW-SD 43.6 fL; WBC 11.35 10^3/uL (4.4-10.8)
[2021-08-16 16:04] LABS: ALT 28 U/L (14-59); AST 14 U/L (15-37); Albumin 3.9 g/dL (3.4-5.0); Alkaline Phosphatase 132 U/L (46-116); Anion Gap 9.7 mmol/L (3-11); BUN 11 mg/dL (7-18); Bilirubin, Total 0.2 mg/dL (0.2-1.0); CO2 25.3 mmol/L (21.0-32.0); CREATININE 0.8 mg/dL (0.55-1.02); Calcium 9.7 mg/dL (8.5-10.1); Chloride 101 mmol/L (98-107); Glucose 104 mg/dL (74-106); Potassium 3.9 mmol/L (3.5-5.1); Sodium 136 mmol/L (136-145); Troponin I < 50 ng/L (<or=60)
[2021-08-16 16:15] LABS: D-Dimer 275 ng/mlFEU (<500)
== END 2021-08-16 15:56 | disposition home or self-care (01) ==
LOC: LBO 15:56
PROVIDERS: PCP Nurse Practitioner Family; Visit Provider Family Medicine
DX: R06.02 Shortness of breath (principal)
CPT/HCPCS: 36415; 80053; 84484; 85025; 85379

== ENCOUNTER 2021-08-16 15:57 | Outpatient (CLI) | payer MEDICAID, SELFPAY ==
--- NOTE | 2021-08-16 | DI.RAD_ITS ---
Exam(s) XR CHEST 2V PA LATERAL EXAM: XR CHEST 2V PA LATERAL CLINICAL HISTORY: SOB R06.02 TECHNIQUE: 2D digital imaging was performed of the chest. Two images were obtained. PA and lateral views were obtained. COMPARISON: CR XR CHEST 2V PA LATERAL from 10/07/2018 FINDINGS: MEDIASTINUM: Normal. HEART: Normal. PULMONARY VASCULATURE: Normal. LUNGS: Clear. PLEURAL SPACE: No pleural effusion or pneumothorax. BONE:Within normal limits for the patient's age. OTHER FINDINGS:Normal. IMPRESSION: No acute pulmonary findings. DATA REPOSITORY: RADIATION DOSE DELIVERED:
== END 2021-08-16 16:17 ==
PROVIDERS: PCP Nurse Practitioner Family; Visit Provider Family Medicine
DX: R06.02 Shortness of breath (principal)
CPT/HCPCS: 71046

== ENCOUNTER 2021-08-19 01:12 | Outpatient (CLI) | payer MEDICAID, SELFPAY ==
--- NOTE | 2021-08-19 13:55 | DI.US_ITS ---
APPROVED REPORT EXAM: Comprehensive 2D, Doppler, and color-flow Echocardiogram Patient Location: Out-Patient Market Research Intern: Roma Baptiste RDCS (AE) Indications: Orthopnea, H/O Covid Other Information Study Quality: Adequate. Technically limited study due to body habitus. Conclusion Normal left ventricular wall thickness and chamber size. Estimated ejection fraction is 59%. Wall m otion is normal Normal right ventricular size and systolic function Both atria are normal in size There is no structural or hemodynamically significant valvular disease Wall motion Left Ventricle The left ventricle is normal size. The left ventricular systolic function is normal. The left ventric ular ejection fraction is within the normal range. There is normal left ventricular wall thickness. T here is normal LV segmental wall motion. There is no ventricular septal defect visualized. LVEF is 59 %. Right Ventricle The right ventricle is normal size. The right ventricular systolic function is normal. The RVSP is 26 .0 mmHg. Atria The left atrium size is normal. The right atrium size is normal. The interatrial septum is intact wit h no evidence for an atrial septal defect. Aortic Valve The aortic valve is normal in structure. There is no aortic valvular stenosis. No aortic regurgitatio n is present. Mitral Valve The mitral valve is normal in structure. No evidence of mitral valve stenosis. Trace mitral regurgita tion. Tricuspid Valve The tricuspid valve is normal in structure. There is no tricuspid valve stenosis. Trace tricuspid reg urgitation. Pulmonic Valve Pulmonic valve is not well visualized. There is no pulmonic valvular stenosis. There is no pulmonic v alvular regurgitation. Great Vessels The aortic root is normal in size. The ascending aorta is normal in size. Aortic arch is not well vis ualized. IVC is normal in size and collapses >50% with inspiration. Pericardium There is no pericardial effusion. 2D Dimensions IVSD d PLAX 1.02 cm F: 0.6-1.0 LV Vol A2C d MOD 97.2 mL LVPW d PLAX 1.04 cm F: 0.6 - 1.0 LV Vol A4C d MOD 101.6 mL LVID d PLAX 4.38 cm F: 3.8 - 5.2 LA vol/ BSA A2C s A-L 18.7 mL/m2 LVDs 2.90 cm F: 2.2 - 3.5 LA vol/ BSA A4C s A-L 20.6 mL/m2 Ao Root d 2.84 cm F: 2.7 - 3.3 LA Vol/ BSA Biplane s A-L 20.7 mL/m2 RA Area A4C 13.20 cm2 LA Area A4C s MOD 16.47 cm2 RA Vol/ BSA A4C s A-L 14.9 mL/m2 LA Area A2C s MOD 14.89 cm2 Ao Asc Diam d 3.01 cm F: 2.3 - 3.1 LV EF A4C MOD 58.9 % LV EF Teichholz 62.7 % LV EF A2C MOD 59.5 % LVEF (Pantoja's) 56.83 % F: 54 - 74 LV EF Biplane MOD 56.8 % LV Volume 74.46 mL F: 46 - 106 SV 57.44 mL LV Volume Index 35.28 mL/m2 F: 29 - 61 SV Index 27.20 mL/m2 LV Vol Biplane MOD 101.1 mL FS 33.60 % M-Mode TAPSE 2.57 cm (M/F) >1.7 LV Diastology MV E' medial 0.125 (>0.07 m/s) E/A Ratio 1.4 LV E/e MED 6.60 (<14) MV E Vmax 0.83 (0.4-1.3 m/s) MV E' lateral 0.119 (>0.1 m/s) MV A Vmax 0.60 (0.4-1.3 m/s) LV E/e LAT 6.95 (<14) MV E/A Ratio 1.29 MV E/E' medial 6.61 MV E/E' lateral 6.97 Aortic Valve LVOT Area 3.55 cm2 AoV Area Vmax 2.66 cm2 LVOT Vmax 1.05 m/s AoV Area/ BSA (Vmax) 1.26 cm2/m2 LVOT Mean Moshe. 0.64 m/s JHONY Mean Moshe. 2.30 cm2 LVOT Peak Grad 4.4 mmHg JHONY Mean Moshe. Index 1.09 cm2/m2 LVOT Mean Grad 2.0 mmHg LVOT VTI 0.199 m LVOT Diam s 2.10 cm AoV Vmax 1.40 m/s Velocity Ratio 0.75 AoV Mean Moshe. 0.99 m/s AoV Peak Grad 7.9 mmHg LVOT SV 70.66 mL AoV Mean Grad 4.3 mmHg AoV VTI 0.254 m AoV Area VTI 2.78 cm2 AoV Area/ BSA (VTI) 1.32 cm/m2 Mitral Valve MV DT 221 (160-240 msec) MV PHT 64 msec MV Area PHT 3.43 cm2 MV VTI 0.212 m MV Area VTI 3.33 (4.0-6.0 cm2) Pulmonary Valve PV Vmax 1.09 (0.5-1.5 m/s) RVOT Peak Gr. 2.55 mmHg PV Peak Grad 4.8 mmHg RVOT Mean Gr. 1.15 mmHg PV Mean Grad 2.5 mmHg RVOT VTI 0.136 m PV VTI 0.197 m RVOT Vmax 0.80 m/s Tricuspid Valve TR Peak Grad 22.9 mmHg TR Vmax 2.40 m/s RA Pressure 3.00 mmHg RVSP (TR) 26.0 mmHg
== END 2021-08-19 01:32 ==
PROVIDERS: PCP Nurse Practitioner Family; Visit Provider Physician Assistant Medical
DX: R06.01 Orthopnea (principal); Z86.16 Personal history of COVID-19
CPT/HCPCS: 93306

== ENCOUNTER 2022-03-23 17:01 | Outpatient (REF) | payer MEDICAID, SELFPAY ==
[2022-03-23 14:51] LABS: HGB 14.5 g/dL (11.2-15.7); MCH 31.7 pg (27.0-33.0); MCHC 33.7 % (32.0-36.0); MCV 94 fL (80-95); MPV 10.8 fL (8.0-11.0); Platelet Count 313 10^3/uL (130-400); RBC 4.57 10^6/uL (3.93-5.22); RDW 12.9 % (11.7-14.6); RDW-SD 44.2 fL; WBC 9.26 10^3/uL (4.4-10.8)
[2022-03-23 15:07] LABS: Anion Gap 10.2 mmol/L (3-11); BUN 6 mg/dL (7-18); CO2 26.8 mmol/L (21.0-32.0); CREATININE 0.9 mg/dL (0.55-1.02); Calcium 9.8 mg/dL (8.5-10.1); Chloride 100 mmol/L (98-107); Glucose 156 mg/dL (74-106); Potassium 4.1 mmol/L (3.5-5.1); Sodium 137 mmol/L (136-145)
== END 2022-03-23 17:02 | disposition home or self-care (01) ==
LOC: NCHCN 17:01
PROVIDERS: PCP Nurse Practitioner Family; Visit Provider Nurse Practitioner Family
DX: R53.82 Chronic fatigue, unspecified (principal)
CPT/HCPCS: 80048; 85027

== ENCOUNTER 2022-04-09 11:08 | Emergency (ER) | payer MEDICAID, SELFPAY ==
[2022-04-09] VITALS (29 sets, daily range): BP systolic 125–189; BP diastolic 40–105; PULSE 79–120; RESP 13–21; TEMP 36.4–36.8; O2SAT 94–99
--- NOTE | 2022-04-09 11:15 | RT.EKG_ITS ---
APPROVED REPORT Exam: Resting ECG Reason for Exam: high blood pressure Patient Location: E HR:108 bpm ECG Measurements Heart Rate 108 AXIS ND 131 P 52 QRSd 85 QRS 55 QT 335 T -14 QTc 451 Conclusion Sinus tachycardia...rate> 99 Nonspecific repol abnormality, diffuse leads...ST dep, T flat/neg, ant/lat/inf
--- NOTE | 2022-04-09 11:30 | DI.CT_ITS ---
Exam(s) CT CHEST PE CTA EXAM: CT CHEST PE CTA CLINICAL HISTORY: chest pain,tachycardia. TECHNIQUE: Imaging Protocol: CT angiography of the chest was performed using pulmonary embolus rojas col. Multi planar reconstructions were performed. CONTRAST MATERIAL: Intravenous: Omnipaque 350 Contrast volume: 100 cc COMPARISON: CT CT RENAL COLIC WO from 09/24/2020 FINDINGS: CHEST: PULMONARY ARTERIES: There are no intraluminal filling defects to suggest acute pulmonary emboli. LUNGS: There are no confluent infiltrates nor evidence of pulmonary infarction.. There are no pleural effusions. MEDIASTINUM: There is no hilar nor mediastinal adenopathy. Visualized thyroid unremarkable. CARDIAC: Heart size is upper normal. There is no pericardial effusion.Caliber of the thoracic aorta is within normal limits. There is no significant shift of the interventricular septum. PARTIALLY VISUALIZED UPPERMOST ABDOMEN: Hepatomegaly and hepatic steatosis. No adrenal masses. No s plenomegaly. OSSEOUS: No significant osseous lesions.. IMPRESSION: 1. No evidence of acute pulmonary emboli. No evidence of pulmonary infarction.No pleural effusions. 2. No intrathoracic adenopathy. 3. Hepatomegaly and hepatic steatosis noted. No splenomegaly. No ascites evident in the visualized upper abdomen. RADIATION DOSE DELIVERED: 760.43mGy.cm Total DLP DATA REPOSITORY: All CT scans at this facility are submitted to the National Radiology Data Registry (NRDR) Dose Index Registry (DIR) with the [employer] (ACR). RADIATION OPTIMIZATION: All CT scans at this facility use at least one of these dose optimization te chniques: automated exposure control; mA and/or kV adjustment per patient size (includes targeted exa ms where dose is matched to clinical indication); or iterative reconstruction.
[2022-04-09 11:43] LABS: Source Nasal/Nares
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
[2022-04-09 11:45] LABS: Abs Immature Grans 0.03 10^3/uL (0.0-0.06); Absolute Basophil Count 0.04 10^3/uL (0.0-0.2); Absolute Eosinophil Count 0.17 10^3/uL (0.0-0.7); Absolute Lymphocyte Count 3.12 10^3/uL (1.2-3.4); Absolute Monocyte Count 0.38 10^3/uL (0.1-0.8); Absolute Neutrophil Count 4.32 10^3/uL (1.2-6.7); Basophils % 0.5; Eosinophils % 2.1; HCT 43.4 % (36.0-46.0); HGB 14.8 g/dL (11.2-15.7); Immature Grans % 0.4; Lymphocytes % 38.7; MCH 32.2 pg (27.0-33.0); MCHC 34.1 % (32.0-36.0); MCV 94 fL (80-95); MPV 9.7 fL (8.0-11.0); Monocytes % 4.7; Neutrophils % 53.6; Platelet Count 342 10^3/uL (130-400); RDW 13.1 % (11.7-14.6); WBC 8.06 10^3/uL (4.4-10.8)
[2022-04-09] MEDS: Aspirin 325 MG TAB PO (11:48)
[2022-04-09] MEDS: nitroGLYcerin 0.4 MG TAB SL (11:48)
[2022-04-09] MEDS: Acetaminophen 500 MG TAB 1000 MG PO (12:00)
[2022-04-09] MEDS: Omnipaque 350 MG/ML 100 ML BTL IV (12:13)
[2022-04-09] MEDS: Normal Saline Flush 10 ML SYR IVP (12:14)
[2022-04-09 12:22] LABS: ALT 49 U/L (14-59); AST 31 U/L (15-37); Albumin 3.6 g/dL (3.4-5.0); Alkaline Phosphatase 107 U/L (46-116); Anion Gap 7.4 mmol/L (3-11); BUN 8 mg/dL (7-18); Bilirubin, Total 0.4 mg/dL (0.2-1.0); CO2 27.6 mmol/L (21.0-32.0); CREATININE 0.9 mg/dL (0.55-1.02); Calcium 8.5 mg/dL (8.5-10.1); Chloride 102 mmol/L (98-107); Glucose 229 mg/dL (74-106); Lipase 93 U/L (73-393); Magnesium 1.8 mg/dL (1.8-2.4); Potassium 3.6 mmol/L (3.5-5.1); Sodium 137 mmol/L (136-145); Total Protein 7.2 g/dL (6.4-8.2); Troponin I < 50 ng/L (<or=60)
[2022-04-09 12:28] LABS: COVID-19 PCR Negative (Negative)
--- NOTE | 2022-04-09 13:10 | DI.VRAD_ITS ---
PROCEDURE INFORMATION: Exam: CTA Chest With Contrast Exam date and time: 04/09/2022 12:09 PM Age: 37 years old Clinical indication: Other: Chest pain, tachycardia TECHNIQUE: Imaging protocol: Computed tomographic angiography of the chest with contrast. 3D rendering (Not supervised by radiologist): MIP and/or 3D reconstructed images were created by the technologist. Radiation optimization: All CT scans at this facility use at least one of these dose optimization techniques: automated exposure control; mA and/or kV adjustment per patient size (includes targeted exams where dose is matched to clinical indication); or iterative reconstruction. Contrast material: OMNIPAQUE 350; Contrast volume: 100 ml; Contrast route: INTRAVENOUS (IV); COMPARISON: CT chest PE CTA 06/08/2019 18:50 FINDINGS: Pulmonary arteries: Crowding of the central pulmonary vasculature. Aorta: Unremarkable. No aortic aneurysm. No aortic dissection. Lungs: Low lung volumes. Crowding of the pulmonary vasculature. Pleural spaces: Unremarkable. No pneumothorax. No pleural effusion. Heart: Prominent cardiac silhouette. Lymph nodes: Unremarkable. No enlarged lymph nodes. Liver: Decreased attenuation of the liver seen with hepatic steatosis. Hepatomegaly. Bones/joints: Unremarkable for age. No acute fracture. Soft tissues: Unremarkable. IMPRESSION: 1. No acute findings. No evidence for pulmonary embolus. 2. Low lung volumes with crowding of the central pulmonary vasculature. 3. Additional findings as discussed above. Dictated and Authenticated by: Yahaira Ontiveros MD. Ordering:MALINDA Hunt MD
[2022-04-09 15:23] LABS: Troponin I < 50 ng/L (<or=60)
--- NOTE | 2022-04-20 09:33 | NUR.NOTE ---
Nursing Note: Accessed patient chart to get information about when the EKG was done and documented.
== END 2022-04-09 16:26 | disposition home or self-care (01) ==
PROVIDERS: Emergency Provider Emergency Medicine; PCP Nurse Practitioner Family
DX: R07.9 Chest pain, unspecified (principal); R53.83 Other fatigue; R73.9 Hyperglycemia, unspecified; I10 Essential (primary) hypertension; J45.909 Unspecified asthma, uncomplicated; Z79.51 Long term (current) use of inhaled steroids; Z87.891 Personal history of nicotine dependence; Z20.822 Contact with and (suspected) exposure to COVID-19
CPT/HCPCS: 36415; 36416; 71275; 80053; 82962; 83690; 87635; 93005; 99285; 83735; 84484; 85025; 93010; J3490

== ENCOUNTER → 2022-04-21 00:03 | Outpatient (CLI) | payer MEDICAID, SELFPAY ==
--- NOTE | 2022-04-21 | DI.US_ITS ---
Exam(s) US ABDOMEN EXAM: US ABDOMEN CLINICAL HISTORY: LUQ ABD PAIN R10.2 TECHNIQUE: Ultrasound abdomen performed using standard protocol. COMPARISON: CT CT CHEST PE CTA from 04/09/2022 FINDINGS: ABDOMINAL AORTA AND IVC: Visualized portions normal caliber. PANCREAS: Normal where visualized. LIVER: There is increased echogenicity of the liver consistent with fatty infiltration. The liver is enlarged measuring 20 cm in length. Hepatopedal flow in the Portal Vein. GALLBLADDER:No evidence of cholelithiasis. No evidence of wall thickening. No pericholecystic fluid i dentified. BILIARY SYSTEM: Common bile duct measures < 7 mm. No intrahepatic biliary ductal dilation. LE'S SIGN: Negative. KIDNEYS: Kidneys are symmetric in size. No evidence of renal calculi. No evidence of hydronephrosis. There is a 1.6 cm simple cyst in the left kidney. This is visualized on the CT scan from 04/09/2022. SPLEEN: Not enlarged. ASCITES: None seen. IMPRESSION: 1. Examination limited by patient body habitus. 2. Hepatomegaly and hepatic steatosis. DATA REPOSITORY:
--- OUTSIDE RECORDS SUMMARY | 2022-04-21 00:06 | XMS_ITS | Clinical Summary ---
:1985 Author Organization [facility] [place] [address] Care Team Providers Name Role Phone Lesley Grace APRN Primary Care Provider Allergies Active Allergy Reactions Severity Noted Date Comments Hydrocodone-Acetaminophen 08/30/2012 Medications Medication Sig Dispensed Refills Start Date End Date Status clonAZEpam (KLONOPIN) 1 Take 1 mg by 0 Active mg tablet mouth 2 times daily as needed. DULoxetine (CYMBALTA) 30 Take 30 mg by 0 Active mg capsule mouth daily. omeprazole (PRILOSEC) 40 Take 40 mg by 0 Active mg Capsule, Delayed mouth daily. Release(E.C.) meTOPROLOL succinate Take 50 mg by 0 Active (TOPROL-XL) 50 mg Tablet mouth daily. Sustained Release 24 hr thiamine (VITAMIN B-1) Take 200 mg by 0 Active 100 mg Tablet mouth 2 times daily. prochlorperazine Take 10 mg by 0 Active (COMPAZINE) 10 mg Tablet mouth 2 times daily as needed for Nausea. loratadine (CLARITIN) 10 Take 10 mg by 0 Active mg Tablet mouth daily. PROAIR HFA 90 inhale 1 to 2 0 04/17/2017 A ctive mcg/actuation HFA Aerosol puffs by mouth Inhaler every 4 to 6 hours if needed cephalexin (KEFLEX) 500 take 1 capsule 0 02/10/2017 Active mg Capsule by mouth twice a day for 7 days doxycycline (VIBRAMYCIN) take 1 capsule 0 11/05/2016 Active 100 mg Capsule by mouth twice a day lisinopril take 1 tablet 0 02/26/2017 Acti ve (PRINIVIL;ZESTRIL) 40 mg by mouth once Tablet daily predniSONE (DELTASONE) 20 take 3 tablets 0 7 Active mg Tablet by mouth once daily for 5 days halobetasol (ULTRAVATE) Apply to 60 g 3 05/03/2017 Active 0.05 % Ointment hand/arm rash twice daily Active Problems Problem Noted Date 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 Family History Medical History Relation Comments Migraines Father Migraines Mother Migraines Sister Migraines Son Relation Status Comments Father Mother Sister Son Social History Tobacco Use Types Packs/Day Years Used Date Current Every Day Smoker Cigarettes 0.5 Smokeless Tobacco: Never Used Alcohol Use Standard Drinks/Week Comments No 0 (1 standard drink = 0.6 oz pure alcoho l) Sex Assigned at Date Recorded Not on file Last Filed Vital Signs Vital Sign Reading Time Taken Comments Blood Pressure 166/127 10/10/2016 3:43 PM EDT Pulse 107 10/10/2016 3:43 PM EDT Temperature - - Respiratory Rate - - Oxygen Saturation - - Inhaled Oxygen Concentration - - Weight 101.6 kg (224 lb) 10/10/2016 3:43 PM EDT Height 157.5 cm (5' 2) 10/10/2016 3:43 PM EDT reported Body Mass Index 40.97 10/10/2016 3:43 PM EDT Plan of Treatment Health Maintenance Due Date Last Done Comments Covid-19 Vaccine (#1) 1985 HIV screen 2001 Hepatitis C Screening 2001 Tdap adult 2002 Tetanus vaccine 2002 HPV test 2013 PAP Smear 2013 Influenza (Flu) vaccine (1 of 1 - Influenza standard 03/09/2022 series) Insurance Payer Benefit Plan / Subscriber ID Effective Dates Phone Addre ss Type [place] [id number] 2016-Gus [phone] [address] [facility] [address] [place], [place] PLUS [address] Care Teams Pre Sales Network Engineer Relationship Specialty Start Date End Date Lesley Grace APRN PCP - General Family Medicine 09/07/16 [address] [place] [address]
--- OUTSIDE RECORDS SUMMARY | 2022-04-21 00:06 | XMS_ITS | Encounter Summary ---
:1985 Author Organization [facility] Address [address] [place] [address] Care Team Providers Name Role Phone Alice Allison Elyssa MONTAÑO Primary Care Provider Reason for Visit Reason Comments Skin Check Encounter Details Date Type Department Care Team Description 08/30/2012 Office Visit Dermatology Gonzalez Cash, Psoriasiform [address] [facility] dermatitis (Primary [address]) [place], [place] DERMATOLOGY [address] [place] [address] [phone] (Wo rk) Social History Tobacco Use Types Packs/Day Years Used Date Never Smoker Sex Assigned at Date Recorded Not on file documented as of this encounter Progress Notes Gonzalez Cash MD - 08/30/2012 1:22 PM EST Problem is hand dermatitis. Aydee is a 27-year-old who since the of her last child three years ago has had a painful dermatitis not responsive to topical corticosteroids on the palmar hands. She is referred today by Krystal Allen for evaluation of this. The patient states that triamcinolone 0.5% cream has not been helpful nor has Clobex ointment. 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 She is not aware of any history of psoriasis personally or in the family. The patient is seen in consultation for Krystal Allen. Physical examination today reveals a pleasant 27-year-old who has pitting of the fingernails of both hands and a psoriasiform dermatitis with thickening plaques and fissuring on the distal palmar hands bilaterally. She also has a few papules on the dorsal hands. These do not extend really much above the wrists, although she does have some nummular eczematous wintertime dermatitis, a few small isolated patches on the forearms. Clearly the most impressive findings are, however, on her palmar hands. She denies any issues on the elbows, knees, scalp, or on her feet. 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 a. Nail pitting certainly points towards psoriasis. b. Discussed the need for oral therapy to control this better, and then we can hopefully do a better job just using topicals to maintain it. The patient states that she has had her tubes tied. c. After checking for drug interactions on the medical letter interactions program and finding none, she was prescribed cyclosporine 100 mg to take on p.o. b.i.d. for three weeks then return to clinic. #60 dispensed with one refill. d. Recommend use of good emollient cream overnight. Recommend CeraVe, but she can certainly use Bag Hammond or Vaseline petroleum jelly. Lotions are pretty much useless, as she states herself. Discussed the option of cotton glove occlusion, but she will not leave gloves on her hands overnight so will have to do without occlusion. e. Try to minimize hand washing and wear gloves when using wet work around the house. Use mild soap. Discussed the chronic nature of this condition and need for ongoing therapies, although as I mentioned I think we can get just topicals. Return to clinic in three weeks for repeat check. Copy: Krystal Allen A.P.R.N. documented in this encounter Plan of Treatment Not on filedocumented as of this encounter Visit Diagnoses Diagnosis Psoriasiform dermatitis - Primary Other psoriasis and similar disorders documented in this encounter Care Teams Steam Shovel Runner Relationship Specialty Start Date End Date Alice Allison APRN PCP - General 08/30/12 08/02/16 documented as of this encounter
--- OUTSIDE RECORDS SUMMARY | 2022-04-21 00:06 | XMS_ITS | Encounter Summary ---
:1985 Author Organization [facility] [place] [address] Care Team Providers Name Role Phone Lesley Grace APRN Primary Care Provider Encounter Details Date Type Department Care Team Description 05/03/2017 Refill Dermatology at [facility] Ilda Coon, ACOUSTIC ENGINEER [address] [place] [address] Social History Tobacco Use Types Packs/Day Years Used Date Current Every Day Smoker Cigarettes 0.5 Smokeless Tobacco: Never Used Alcohol Use Standard Drinks/Week Comments No 0 (1 standard drink = 0.6 oz pure alcoho l) Sex Assigned at Date Recorded Not on file documented as of this encounter Plan of Treatment Not on filedocumented as of this encounter Visit Diagnoses Not on filedocumented in this encounter Care Teams Math Tutor Relationship Specialty Start Date End Date Lesley Grace APRN PCP - General Family Medicine 09/07/[address] [place] [place] [address] documented as of this encounter
--- OUTSIDE RECORDS SUMMARY | 2022-04-21 00:06 | XMS_ITS | Encounter Summary ---
:1985 Author Organization [facility] [place] [address] Care Team Providers Name Role Phone Lesley Grace APRN Primary Care Provider Reason for Visit Reason Comments Skin Check Consultation (Routine) - Specialty Diagnoses / Procedures Referred By Contact Refer red To Contact Dermatology Diagnoses Dyshidrosis (pompholyx) Dyshidrotic Eczema Lesley Grace APRN Hammer, Charles J, MD Procedures Dyshidrotic Eczema [address] [place], [place] DERMATOLOGY [address] [place] [address] Fax: Referral ID Status Reason Start Date Expiration Date Visits V isits Requested Authorized [id number] 03/06/2017 03/06/2018 1 1 Encounter Details Date Type Department Care Team Description 05/03/2017 Office Visit Dermatology at [facility], Spongio tic dermatitis Melchor RODRIGUEZ [address] [facility] [address] [facility] Jamarcus B DERMATOLOGY [place], [place] [address] [phone] Social History Tobacco Use Types Packs/Day Years Used Date Current Every Day Smoker Cigarettes 0.5 Smokeless Tobacco: Never Used Alcohol Use Standard Drinks/Week Comments No 0 (1 standard drink = 0.6 oz pure alcoho l) Sex Assigned at Date Recorded Not on file documented as of this encounter Progress Notes [facility] MD - 05/03/2017 8:30 AM EDT PROBLEM: Hand dermatitis. Aydee is a 32-year-old woman who is referred today in consultation by Lesley Grace for evaluation of a hand dermatitis. This has been a problem for at least 7 years. She dates it back to a tubal ligation. She states that this has been treated with numerous oral and topical products. Nothing has helped and it has been a problem ongoing now for 7 years. She does recall as a child having had eczema in the antecubital fossae and a childhood history of asthma. 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 She has 4 children, ages 15, 10, 9, and 7 of whom only the younger 3 live at home with her. She does a lot of wet work and tries to wear gloves while doing so. She is on risperidone, Imitrex, amitriptyline, Klonopin, and Cymbalta. Physical examination reveals a pleasant 32-year-old woman who has a subacute eczematous dermatitis, erythema covering the palms of both hands and the palmar aspect of her fingers with minimal extension onto the dorsum of the hand and fingers. The nails do not show any pitting. There is mild nail dystrophy from the chronic nature of her eczema. There is some involvement of the distal dorsal proximal fingers. She has subacute eczematous patches also present on the right midextensor forearm and just lateral to her right elbow. She does not have any stigmata of psoriasis on the knees, in the scalp. 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 a. Patient is atopic and this simply may represent a chronic irritant hand dermatitis, but I think it is important to rule out the possibility of allergic contact dermatitis given her work and home exposures. b. We will refer her for patch testing at [facility]. c. Begin halobetasol ointment, apply b.i.d. basis to the hands and to affected areas on the right arm; 60 g will be called in with 3 refills to her [facility] in [facility]. d. Recommended wearing cotton gloves to bed overnight to allow better absorption and penetration (occlusion) of her halobetasol. Try to wear gloves when doing wet work during the day. Discussed sensitive skin care precautions. cc: DANYEL Wiseman MD documented in this encounter Plan of Treatment Not on filedocumented as of this encounter Visit Diagnoses Diagnosis Spongiotic dermatitis Contact dermatitis and other eczema, due to unspecified cause documented in this encounter Care Teams Hand Packer/Packager Relationship Specialty Start Date End Date Lesley Grace APRN PCP - General Family Medicine 09/07/[address] [place] [address] [place] [address] documented as of this encounter
--- OUTSIDE RECORDS SUMMARY | 2022-04-21 00:06 | XMS_ITS | Encounter Summary ---
:1985 Author Organization [facility] [place] [address] Care Team Providers Name Role Phone Kilo Grace APRN Primary Care Provider Reason for Visit Consultation (Routine) - Closed Specialty Diagnoses / Procedures Referred By Contact Refer red To Contact Neurology Diagnoses Migraine headache. Chronic daily headache. Kilo Grace APRN [facility] [address] [address] [place] [address] Referral ID Status Reason Start Date Expiration Date Visits V isits Requested Authorized [id number] Closed Consult, 09/07/2016 09/07/2017 1 1 [facility] Encounter Details Date Type Department Care Team Description 10/10/2016 Office Visit Neurology [place] [facility] Gustavo Santana Intractable chronic migraine without aura and without status migrainosus; [facility] MD Robyn Benzodiazepine dependence, [place] [address] [place], [place] [id number] Social History Tobacco Use Types Packs/Day Years Used Date Current Every Day Smoker Cigarettes 0.5 Smokeless Tobacco: Never Used Alcohol Use Standard Drinks/Week Comments No 0 (1 standard drink = 0.6 oz pure alcoho l) Sex Assigned at Date Recorded Not on file documented as of this encounter Last Filed Vital Signs Vital Sign Reading [...] Mass Index 40.97 10/10/2016 3:43 PM EDT documented in this encounter Progress Notes Gustavo Santana MD - 10/10/2016 4:00 PM EDT Neurology Headache New Patient Consultation?4=4=17 [facility] Referring Provider: Kilo Grace APRN This is a 31 year old??R-handed woman referred by Kilo Grace APRN, to whom I will send the consult upon completion. Accompanied by:?? best friend CC:?? headache HPI: Pt with htn, anemia, GERD, JUAN, depression/biprolar and BPD. She has had daily VELEZ since at least . +FHx. No hx of motion sickness. MIDAS 94, daily HAs. No HAs in childhood; they started at age 16. They were initially episodic. There was a gradual transformation. They are severe every day. They are bilateral and frontal, occasionally in the posterior neck. They are throbbing, worse with activity, with N, V, and photophonophobia. For the pain, takes nothing. For the nausea, takes prochlorperazine. [place] NURSING EDUCATOR shows that she is on clonazepam, but she has had 3 prescribers of the Klonopin in 3 towns in the last year. Her last narcotic prescription was in November, but her two prescribers last year were from different offices. JANA BRANDON Fill Date Product, Str, Form Qty Days Pt ID Prescriber Written RX# N/R* Pharm Disc ST ----- ----- ------- 09/14/2016 CLONAZEPAM, 1 MG, TABLET 60.00 30 0001 [id number] 09/14/2016 [id number] N [id number] [place] 08/02/2016 CLONAZEPAM, 1 MG, TABLET 30.00 30 0001 [id number] 08/02/2016 [id number] N [id number] [place] 11/19/2015 OXYCODONE HCL-ACETAMINOPHEN, 325 MG 4.00 4 0001 [id number] 11/19/2015 [id number] N [id number] [place] 10/22/2015 CLONAZEPAM, 1 MG, TABLET 30.00 30 0001 [id number] 10/21/2015 [id number] N [id number] [place] 09/15/2015 TRAMADOL HCL, 50 MG, TABLET, FILM C 15.00 4 0001 [id number] 09/15/2015 [id number] N [id number] *N/R N=New R=Refill Prescribers for prescriptions listed [id number] KILO GRACE (BILINGUAL ACCOUNT MANAGER-C); , [address] [facility] [address] [id number] LORENE DESAI, WEIGHING STATION OPERATOR; , [address] [facility]/[address] [place] [address] [id number] RAFAEL SHEFFIELD NP; , [address] [place] [address] [id number] TWYLA REYES (MS); , [facility], [address] [place] [address] [id number] JANINA TEIXEIRA; , [address] [facility] [id number] Prior Treatments: TCAs 1. Amitriptyline - made her sleepy and encephalopathic BZDs 2. Clonazepam Neuroleptics 3. Prochlorperazine 4. Promethazine 5. Risperidone Beta blockers 6. Propranolol- did not work 7. Metoprolol 50- on this now AEDs 8. TPM- did not work NSAIDs 9. Ibuprofen 10. Naproxen 11. Ketorolac SNRIs 12. Duloxetine Triptans 13. Negar 100 Supplements 14. B2 KEVEN 15. Lisinopril 20- does not work Misc 16. APAP Narcotics 17. Tramadol 18. Hydrocodone 19. Oxycodone 20. Hydromorphone Outpatient Prescriptions Marked as Taking for the 10/10/16 encounter (Office Visit) with Gustavo Santana MD Medication Sig Dispense Refill ??? omeprazole (PRILOSEC) 40 mg Capsule, Delayed Release(E.C.) Take 40 mg by mouth daily. ??? meTOPROLOL succinate (TOPROL-XL) 50 mg Tablet Sustained Release 24 hr Take 50 mg by mouth daily. ??? lisinopril (PRINIVIL;ZESTRIL) 20 mg Tablet Take 20 mg by mouth daily. ??? thiamine (VITAMIN B-1) 100 mg Tablet Take 200 mg by mouth 2 times daily. ??? prochlorperazine (COMPAZINE) 10 mg Tablet Take 10 mg by mouth 2 times daily as needed for Nausea. ??? loratadine (CLARITIN) 10 mg Tablet Take 10 mg by mouth daily. ??? clonAZEpam (KLONOPIN) 1 mg tablet Take 1 mg by mouth 2 times daily as needed. ??? DULoxetine (CYMBALTA) 30 mg capsule Take 30 mg by mouth daily. Allergies Allergen Reactions ??? Vicodin [Hydrocodone-Acetaminophen] Previous testing: none Family History: Migraine or other headaches in the family:?? both parents, son, sister Past Medical History: Diagnosis Date ??? Anemia ??? Bipolar disorder ??? Borderline personality disorder ??? Depression ??? JUAN (generalized anxiety disorder) ??? GERD (gastroesophageal reflux disease) ??? Hypertension ??? PTSD (post-traumatic stress disorder) ??? Tachycardia Past Surgical History: Procedure Laterality Date ??? HYSTERECTOMY 2015 ??? TONSILLECTOMY AND ADENOIDECTOMY 2001 ??? TUBAL LIGATION Laceration R forearm 2012 Neck cyst removal Uterine ablation Social History Social History ??? Marital status: Single Spouse name: N/A ??? Number of children: N/A ??? Years of education: N/A Occupational History ??? Not on file. Social History Main Topics ??? Smoking status: Current Every Day Smoker Packs/day: 0.50 Types: Cigarettes ??? Smokeless tobacco: Never Used ??? Alcohol use No ??? Drug use: No ??? Sexual activity: Not on file Other Topics Concern ??? Not on file Social History Narrative ROS: HEENT: headache Psych: depression, anxiety, PTSD, bipolar, borderline CV: high blood pressure GI: reflux : hysterectomy Endocrine: negative Musculoskeletal: negative Physical Exam VS BP (!) 166/127 (BP Location (NBP): Left arm, Patient Position: Sitting, BP Cuff Sizes: Large Adult (32-43 cm)) Pulse 107 Ht 157.5 cm (5' 2) Comment: reported Wt (!) 101.6 kg (224 lb) BMI 40.97kg/m2 General: nl Pain Behaviors: splits the midline to the tuning fork; wild, exaggerated startle response to tuning fork, funduscopic exam, and even reflex testing; give way weakness (I can break her wrist extensors);volitional inability to tandem walk. Skin: excoriations, possibly self inficted HEENT: Nl, no spasm, full ROM Abdomen/genitalia: ND Vascular: Nl, no bruits Musculoskeletal: Nl Neurological: Mental Status: nl, Affect is appropriate. Speech is clear, not dyarthric. Attention span and concentration are nl. Cranial Nerves: II: Funduscopic: nl discs & venous pulsations Visual solorio: full to confrontation 3,4,6: Pupils: 3 mm = round reactive to light and near reflex V: splits the midline to the tuning fork; corneals intact bilaterally VII:symmetric VIII: Hears voice 9, 10: Gag nl XI: SCMs 5/5; Shoulder Shru/5 XIII:Tongue protrusion: midline Motor: nl bulk, tone, but give way weakness (I can break her wrist extensors) Reflexes 1+ Pathologic reflexes: absent Drift absent Tremor: absent Sensation: not tested due to functional exam Cerebellar exam: FTN nl . Gait examination: volitional inability to tandem walk. Impression: ?? 1. Intractable chronic migraine without aura and without status migrainosus 2. Benzodiazepine dependence, continuous 3. Functional neurological exam (conversion disorder) This patient meets the FDA criteria for Chronic Migraine, with headache at least 15 days per month, at least 4 hours per day (hers are continuous). She has unsuccessfully tried at least 20 medications,and has had lack of success with each of the big three anti-migraine prevention categories, antidepressants, anti-epilepsy drugs, and antihypertensives. The only FDA approved medication for Chronic Migraine is Botox, and we will submit for this medication for her. We will set up a return visit for Botox in one month. I will order an MRI wwo contrast as the HAs have worsened. I will order a TSH because of her tachycardia. I encouraged her to return to her PCP- she needs better control of BP and pulse. Of course, adherence could be an issue. She is already scheduled for a sleep study. I spent?? 80 minutes in this visit with 60 minutes devoted to face-to face patient counseling. Thank you, Ms Sanjay, for this consult. Gustavo Santana MD documented in this encounter Plan of Treatment Not on filedocumented as of this encounter Visit Diagnoses Diagnosis Intractable chronic migraine without aur a and without status migrainosus Chronic migraine without aura, with intr actable migraine, so stated, without mention of status migrainosus Benzodiazepine dependence, continuous Sedative, hypnotic or anxiolytic depende nce, continuous documented in this encounter Care Teams Barber Shop Manager Relationship Specialty Start Date End Date Kilo Grace APRN PCP - General Family Medicine 09/07/16 [place] [address] documented as of this encounter
--- OUTSIDE RECORDS SUMMARY | 2022-04-21 00:06 | XMS_ITS | Encounter Summary ---
:1985 Author Organization [facility] [place] [address] Care Team Providers Name Role Phone Natalia Graceh DANYEL Primary Care Provider Reason for Referral High Dollar Medication (Routine) - Specialty Diagnoses / Procedures Referred By Contact Refer red To Contact Neurology Diagnoses Intractable chronic migraine without aura and without status migrainosus Gustavo Santana MD [facility]c Procedures Auth Request for Medication TC ONABOTULINUMTOXINA, 1 UNIT, INJECTION [place] [address] [place] [address] Fax: Referral ID Status Reason Start Date Expiration Date Visits V isits Requested Authorized [id number] Consult, 11/16/2016 02/16/2017 4 4 Test & Treat Encounter Details Date Type Department Care Team Description 10/17/2016 Orders Only Neurology at [facility] Gustavo Santana, Intractable chronic [facility] migraine without aura [facility] [place] [address] [phone] [place], [place] [address] Social History Tobacco Use Types Packs/Day Years [...] so stated, without mention of status migrainosus documented in this encounter Care Teams Interventional Radiology Tech Relationship Specialty Start Date End Date Lesley Grace APRN PCP - General Family Medicine 09/07/16 [address] [place] [address] documented as of this encounter
--- OUTSIDE RECORDS SUMMARY | 2022-04-21 00:07 | XMS_ITS | Encounter Summary ---
:1985 Author Organization [facility] Address [address] [place] [address] Care Team Providers Name Role Phone Unknown, Provider Primary Care Provider Encounter Details Date Type Department Care Team Description 12/27/2010 Results Only [facility] Maria Teresa Yoder MD Laboratory Services - [address] [place] [address] [place] [address] [place] [address] [phone] Social History Tobacco Use Types Packs/Day Years Used Date Never Assessed Sex Assigned at Date Recorded Not on file documented as of this encounter Plan of Treatment Not on filedocumented as of this encounter Procedures Procedure Name Priority Date/Time Associated Diagnosis Comme [facility] SURGICAL PATHOLOGY Routine 12/27/2010 0:00 EDT Re sults for this procedure are i n the results section. documented in this encounter Results SURGICAL PATHOLOGY (12/27/2010 0:00 EDT) Pathology Report: SURGICAL PATHOLOGY REPORT ? [facility] Reports generated via electr [employer] interface contain original data; ? LAB however they are lacking the format of the original report. ? Caution should be taken when reading/interpreting unformatted reports. ? Name: ? BATES, AYDEE ? Accession #: ? [id number] ? : ? 1985 (Age: 25) ??F ? Collec t Date: ? 12/27/2010 ? Location: ? [facility] ? Re ceive Date: ? 12/27/2010 ? Provider: AMBER YODER MD ? Copy to: SELAM Bergeron JR LOWE MD ? Final Pathologic Diagnosis: ? Endometrium, curettag e: ? 1. ??Proliferative endometri um. ??See comment. ? 2. ??Fragments of mello ign endocervical mucosa with squamous metaplasia. ? Comment: ? Rn [facility] Marrow Transplant sectio ns of this case have been reviewed at ? intradepartmental consultati on conference. ??(Dr. Velazquez)/mpl ? Document reviewed and electr onically signed by: ? ABDELMONEM ELHOSSJOY MD ? Report ??Date: 12/29/2010 16 :40 ? By the signature above, the attending physician certifies that he/she has ? personally conducted a gross and/or microscopic examination of the described ? specimens and rendered or co nfirmed the above diagnosis. ? Specimen(s) Received: ? Endometrial curetting s ? Clinical History: ? Dysmenorrhea, menorrh agia; Clinical diagnosis code: 626.2, 625.3 ? Gross Description: ? Received in formalin labelled Bates, Aydee and endometrial ? curettings are 3.0 x 2.5 x 0.5 cm of lyle-red, hemorrhagic, slightly mucoid soft tissue fragments. ??The spec imen is entirely submitted as (A1) and (A2) following filtration. (Parvin Jo/wilmer l ? End of Report ? Specimen Performing Organization Address City/State/ZIP Code Phon e Number [facility] [address] [place] [address] SERVICES [facility] [address] [place] [address] documented in this encounter Visit Diagnoses Not on filedocumented in this encounter Care Teams Superintendent Circus Relationship Specialty Start Date End Date Unknown, Provider, PCP - General 12/23/09 02/21/15 documented as of this encounter
--- OUTSIDE RECORDS SUMMARY | 2022-04-21 00:07 | XMS_ITS | Encounter Summary ---
:1985 Author Organization [facility] Address [address] [place] [address] Care Team Providers Name Role Phone Unknown, Provider Primary Care Provider Encounter Details Date Type Department Care Team Description 02/16/2015 Results Only [facility] Hand MD [phone] [address] [place], [place] [address] (Wo rk) Social History Tobacco Use Types Packs/Day Years Used Date Never Assessed Sex Assigned at Date Recorded Not on file documented as of this encounter Plan of Treatment Not on filedocumented as of this encounter Procedures Procedure Name Priority Date/Time Associated Diagnosis Comme nts SURGICAL PATHOLOGY Routine 02/16/2015 20:04 Resul ts for this EDT procedure are i n the results section. documented in this encounter Results SURGICAL PATHOLOGY (02/16/2015 20:04 EDT) Pathology SURGICAL PATHOLOGY REPORT [facility] Report: Reports generated via electronic interface conta in original data; [facility] however they are lacking the format of the original re port. SERVICES Caution should be taken when reading/interpreting unfo rmatted reports. Name: ? AYDEE BATES ? Accession #: ? [id number] ? : ? 1985 (Age: [age]) ??F ? Collect Date: ? 02/16/2015 ? Location: ? [facility] ? Receive Date: ? 5 ? Provider: JAMAL YODER MD Copy to: TWYLA REYES AWNINGS MECHANIC ? Final Pathologic Diagnosis: UTERUS, CERVIX, RIGHT OVARY, RIGHT AND LEFT FALLOPIAN TUBES, HYSTERECTOMY, RIGHT OOPHERECTOMY AND BILATERAL SALPINGECTOMY: - ??Endometrium: ? - ??Predominantly bas riaz endometrium with regenerative changes, consistent with history of ?endometrial ablation. See comment. ? - ??Focal plasma cells identified. - ??Myometrium: ? - No specific pathologic features. - ??Serosa: ? - No specific pathologic features. - ??Cervix: ? - No specific pathologic features. - ??Fallopian tubes: ? - Status-post tubal ligation. - ??Ovary, right: ? - No specific pathologic features. Comment: Focally, plasma cells are identified within the endometrium and may represent chronic endometritis. Clinical correlation is recommen ded. Yard Engineer sections have been reviewed at the intradepartme ntal consultation conference. Document reviewed and electronically signed by: AMBERLY SANTOS MD Report ??Date: 02/23/2015 12:33 By the signature above, the attending physician certif ies that he/she has personally conducted a gross and/or microscopic examin ation of the described specimens and rendered or confirmed the above diagnosi s. Specimen(s) Received: Uterus, bilateral fallopian tubes, and right ovary Clinical History: Dysmenorrhea; had an endometrial ablation; clinical di agnosis code: 625.3 Gross Description: ? Received in formalin labelled with proper patient identification (initials H, D) and uterus, bilateral fallopian tubes, and righ t ovary is an intact uterus and cervix (95.2 g, 8 .7 cm cervix to fundus x 5.8 cm cornu to cornu x 3.3 cm anterior to posterior) with attached right ovary (3 .7 x 2.2 x 1.4 cm) and left and right fimbriated fallopian tubes (Left: 6.0 cm in length x 0.4 cm in diameter, and Right: 4.0 cm in length x 0.4 cm in diam eter). ? The uterine serosa is lyle-pink and smooth with a dull appearance. The endometrium is lyle-pink with an average thicknes s of 0.2 cm. On the posterior aspect is a prominent depres avinash (1.0 x 0.5 x 0.4 cm) that is filled with thick brown-red fluid. The myometr ium is lyle-pink with a trabeculated appearance and a thickness of 1.3 cm. The ectocervix is t an-pink and glistening. The endocervix is lyle-pink and rubbery with multiple gelatinous fille d cysts (ranging from 0.2-0.7 cm) along the periphery. The serosal surface o f the right and left fallopian tubes is young-purple and dull. ??Each of the tubes has a central disruption, consistent with ligation. The cut surfaces disclose an unremarkable pinpoint lumen. The capsule of the right ovary is sevilla -purple and soft with multiple fluid filled nodules. The cut s urfaces of the ovary disclose multiple gelatinous filled cysts (ran ging from 0.2 cm to 1.8 cm in height). The remaining ovarian parenchyma shows multiple yellow-orange focal areas, consistent with corpora lutea. ? Yard Engineer sections are submitted as follow s: BLOCK ARRIAZA 1- ??anterior cervix, with cysts 2- ??anterior lower uterine segment 3-4- ??anterior endomyometrium 5- ??posterior cervix 6- ??posterior lower uterine segment 7-8- ??posterior endomyometrium with depression 9- ??additional posterior endomyometrium 10- ??left open claims representative fallopian tube 11- ??right open claims representative fallopian tube 12-13 ??-open claims representative ovary 02/18/2015 11:51 AM End of Report Specimen Performing Organization Address City/State/ZIP Code Phon e Number [facility] [address] [place] [address] SERVICES documented in this encounter Visit Diagnoses Not on filedocumented in this encounter Care Teams Time Piece Repairer Relationship Specialty Start Date End Date Unknown, Provider, PCP - General 12/23/09 02/21/15 documented as of this encounter
--- OUTSIDE RECORDS SUMMARY | 2022-04-21 00:07 | XMS_ITS | Clinical Summary ---
:1985 Author Organization [facility] Address [address] [place] [address] Care Team Providers Name Role Phone Alice Allison DESKTOP PUBLISHER Primary Care Provider Social History Tobacco Use Types Packs/Day Years Used Date Never Assessed Sex Assigned at Date Recorded Not on file Plan of Treatment Health Maintenance Due Date Last Done Comments Hepatitis C Screen 1985 COVID-19 Vaccine (1) 1988 Insurance Payer Benefit Plan Subscriber ID Effective Phone Address Typ e / Group Dates MEDICAID ACO MEDICAID ACO [id number] 2019-Pres [phone] [address] [place] [address] [facility] [id number] Care Teams Day Care Director Relationship Specialty Start Date End Date Alice Allison NP PCP - General 02/22/15
--- OUTSIDE RECORDS SUMMARY | 2022-04-21 00:07 | XMS_ITS | Encounter Summary ---
:1985 Author Organization [facility] Address [address] [place] [address] Care Team Providers Name Role Phone Unavailable Primary Care Provider Unavailable Encounter Details Date Type Department Care Team Description 11/12/2000 Results Only [facility] - Michael Smith MD conversion [address] [facility] [address] [place] [address] [place] [address] [phone] Social History Tobacco Use Types Packs/Day Years Used Date Never Assessed Sex Assigned at Date Recorded Not on file documented as of this encounter Plan of Treatment Not on filedocumented as of this encounter Procedures Procedure Name Priority Date/Time Associated Diagnosis Comme nts SURGICAL PATHOLOGY Routine 11/12/2000 0:00 EDT Re sults for this procedure are i n the results section. documented in this encounter Results SURGICAL PATHOLOGY (11/12/2000 0:00 EDT) Pathology Report: SURGICAL PATHOLOGY REPORT [facility] Reports generated via electronic interface contain gracie ginal data; LAB however they are lacking the format of the original re port. Caution should be taken when reading/interpreting unfo rmatted reports. Name: ? AYDEE BATES ? Accession #: ? [id number] ? : ? 1985 (Age: 15) ??F ? Collect Date: ? 11/12/2000 ? Location: ? [facility] ? Receive Date: ? 001 ? Provider: MICHAEL BECKER MD Copy to: LULY KIM MD ? Final Pathologic Diagnosis: A. ?Tonsil, right, tonsillectomy: 1. ?Tonsillar tissue with reactive lympho id hyperplasia. B. ?Tonsil, left, tonsillectomy: ? 1. ?? Tonsillar tissue with reactive lymphoid h yperplasia. Document reviewed and electronically signed by: MALIK MEZA MD Report ??Date: 11/14/2000 16:06 By the signature above, the attending physician certif ies that he/she has personally conducted a gross and/or microscopic examin ation of the described specimens and rendered or confirmed the above diagnosi s. Specimen(s) Received: A. ?R tonsil (#1) B. ?L tonsil (#2) Clinical History: ? Chronic tonsillitis with recurrent strep Gross Description: ? Received in formalin labelled Baig anel and 1 R tonsil is a lyle ovoid unoriented 3.0 x 1.5 x 1.1 cm soft tissue surfaced by a lyle wrinkled mucosa. Upon sectioning, the cut surfaces are ta n-pink with a crypt-like architecture. No discreet nodules are iden tified. ??Also received is a lyle irregular 1.5 x 0.8 x 0.5 cm soft tissue. The cu t surfaces are lyle-red and grossly unremarkable. ??A client care representative section of each tissue is submitted as (A). Received in formalin labelled Bates and 2 L tonsi l is a lyle ovoid unoriented 3.1 x 1.7 x 1.0 cm soft tissue surfaced by a lyle wrinkled mucosa. Upon sectioning, the cut surfaces are ta n-pink with a crypt-like architecture. No discreet nodules are identified. ??A client care representative section is submitted as (B). ??(Parvin Kaufman)/[facility] End of Report Specimen Performing Organization Address City/State/ZIP Code Phon e Number [facility] [address] [place] [address] SERVICES [facility] [address] [place] [address] documented in this encounter Visit Diagnoses Not on filedocumented in this encounter
--- OUTSIDE RECORDS SUMMARY | 2022-04-21 00:07 | XMS_ITS | Encounter Summary ---
:1985 Author Organization [facility] Address [address] [place] [address] Care Team Providers Name Role Phone Unknown, Provider Primary Care Provider Encounter Details Date Type Department Care Team Description 02/16/2015 Hospital Encounter [facility]- Sujatha Unknown, Provider, [facility] 0 [facility] [phone] [place] [address] (Work) [phone] Social History Tobacco Use Types Packs/Day Years Used Date Never Assessed Sex Assigned at Date Recorded Not on file documented as of this encounter Discharge Disposition Disposition Code Departure Means Destination Home or Self Long Term documented in this encounter Plan of Treatment Not on filedocumented as of this encounter Visit Diagnoses Not on filedocumented in this encounter Care Teams Supervisor Pigment Making Relationship Specialty Start Date End Date Unknown, Provider, PCP - General 12/23/09 02/21/15 documented as of this encounter
--- OUTSIDE RECORDS SUMMARY | 2022-04-21 00:07 | XMS_ITS | Encounter Summary ---
:1985 Author Organization [facility] Address [address] [place] [address] Care Team Providers Name Role Phone Alice Allison GABRIELA Primary Care Provider Encounter Details Date Type Department Care Team Description 05/22/2021 Lab Requisition [facility] Outr Resulting Lab, Pathology & Laboratory Provider [facility] [address] [place], [place] [id number] Social History Tobacco Use Types Packs/Day Years Used Date Never Assessed Sex Assigned at Date Recorded Not on file documented as of this encounter Plan of Treatment Not on filedocumented as of this encounter Procedures Procedure Name Priority Date/Time Associated Diagnosis Comme nts COVID-19 TEST [facility] Today 05/21/2021 10:25 LAB PCR EST COVID-19 TESTING Routine 05/21/2021 10:25 Results for this EST procedure are i n the results section. documented in this encounter Results COVID-19 TEST [facility] LAB PCR (05/21/2021 10:25 EST) Specimen Swab Performing Organization Address City/State/ZIP Code Phon e Number [facility] [address] [place] [address] SERVICES (ABNORMAL) COVID-19 TESTING (05/21/2021 10:25 EST) COVID-19 rt-PCR Positive (AA) Negative [facility] Result Comment: LABORATORY This test has not been FDA c leared or approved. This test has been authorized by FDA under an EUA for use by authorized laboratories. This test has been authorized only for detection of nucleic acid fro SERVICES m 2018-nCo, not for any oth er viruses or pathogens. This test is only authorized for the duration of the declaration that circumstances exist justifying the authorization of emergency use of in vitro d iagnostic tests for detectio n and/or diagnosis of 2019-nCoV under section 564(b)(1) of Act, 21 U.S.C ?? 360bbb-3(b) (1), unless the authorization is terminated or revoked sooner. Testing was performed using the catherine SARS-CoV-2 assay ([employer] on the Catherine 6800 System Performing Lab [facility] [address] [facility] Lab [facility] SERVICES Specimen Swab Performing Organization Address City/State/[facility] Code Phon e Number [facility] [address] [place] [address] SERVICES documented in this encounter Visit Diagnoses Not on filedocumented in this encounter Additional Health Concerns Infection Onset Date Last Indicated Resolved Time COVID-19 05/21/2021 05/21/2021 06/10/2021 22:15 EST documented as of this encounter Care Teams Pharmacy Technician Program Director Relationship Specialty Start Date End Date Alice Allison NP PCP - General 02/22/15 documented as of this encounter
--- OUTSIDE RECORDS SUMMARY | 2022-04-21 00:07 | XMS_ITS | Encounter Summary ---
:[address] [facility] Address [address] [place] [address] Care Team Providers Name Role Phone Unknown, Provider Primary Care Provider Encounter Details Date Type Department Care Team Description 03/21/2012 Results Only [facility] Farhana Reyes, HARNESS WORKER Laboratory Services - [address] [facility] [address] [place] [id number] [place], [place] [address] [phone] Social History Tobacco Use Types Packs/Day Years Used Date Never Assessed Sex Assigned at Date Recorded Not on file documented as of this encounter Plan of Treatment Not on filedocumented as of this encounter Procedures Procedure Name Priority Date/Time Associated Diagnosis Comme nts PAP TEST- RESULT Routine 03/21/2012 0:00 EDT Resu lts for this ONLY procedure are i n the results section. documented in this encounter Results PAP TEST- RESULT ONLY (03/21/2012 0:00 EDT) Pathology Report: CYTOPATHOLOGY REPORT [facility] Reports generated via electronic interface contain gracie ginal data; however they are lacking the format of the original re port. Caution should be taken when reading/interpreting unfo rmatted reports. Name: ? AYDEE BATES ? Accession #: ? [id number] : ? 1985 (Age: 27) ??F ?Collect Date: ? 03/09 Location: ? [facility] ? Receive Date : ? 03/25/2012 Provider: ?TWYLA REYES HARNESS WORKER Copy to: ? Specimen/Source: ? Pap Test, Source Not Provided, ThinPrep Imaging System with manual evaluation Last Menstrual Period: ? 2010 Hormonal/Contraceptive Status: ? Tubal ligation: bilateral Previous Gynecologic Pathology: ? Yes: Hx of abnormal paps Treatment History: ? Miscellaneous treatment: Hx Uterine Ablation ? SPECIMEN ADEQUACY ? Satisfactory for Evaluation - transformation zone component present GENERAL CATEGORIZATION ? Negative for Intraepithelial Lesion or Malignan cy INTERPRETATION ? Reactive cellular janis nges associated with inflammation present (includes repair). ? Document reviewed and electronically signed by: ? LAYTON JIMENEZ MD ? Report Date: ??04/03/2012 19:13 End of Report Specimen Performing Organization Address City/State/ZIP Code Phon e Number [facility] [address] [place] [address] SERVICES [facility] [address] [place] [address] documented in this encounter Visit Diagnoses Not on filedocumented in this encounter Care Teams Combined Rail Operator Relationship Specialty Start Date End Date Unknown, Provider, PCP - General 12/23/09 02/21/15 documented as of this encounter
--- OUTSIDE RECORDS SUMMARY | 2022-04-21 00:07 | XMS_ITS | Encounter Summary ---
:1985 Author Organization [facility] Address [address] [place] [address] Care Team Providers Name Role Phone Unavailable Primary Care Provider Unavailable Encounter Details Date Type Department Care Team Description 12/21/2009 Results Only [facility] Maria Teresa Yoder MD Laboratory Services - [address] [place] [phone] [facility] [place] [address] [phone] Social History Tobacco Use Types Packs/Day Years Used Date Never Assessed Sex Assigned at Date Recorded Not on file documented as of this encounter Plan of Treatment Not on filedocumented as of this encounter Procedures Procedure Name Priority Date/Time Associated Diagnosis Comme [facility] SURGICAL PATHOLOGY Routine 12/21/2009 0:00 EDT Re sults for this procedure are i n the results section. documented in this encounter Results SURGICAL PATHOLOGY (12/21/2009 0:00 EDT) Pathology Report: SURGICAL PATHOLOGY REPORT ? [facility] Reports generated via electr Sport Ngin interface contain original data; ? LAB however they are lacking the format of the original report. ? Caution should be taken when reading/interpreting unformatted reports. ? Name: ? BATES, AYDEE ? Accession #: ? [id number] ? : ? 1985 (Age: 24) ??F ? Collec t Date: ? 12/21/2009 ? Location: ? [facility] ? Re ceive Date: ? 12/21/2009 ? Provider: AMBER YODER MD ? Copy to: ? Final Pathologic Diagnosis: ? A. ?Fallopian t ube, right, sterilization: ? 1. ?Full cross section of portion of fallopian tube. ? B. ??Fallopian tube, left, sterilization: ?1. ?? Full cr oss section of portion of fallopian tube. ? Document reviewed and electr onically signed by: ? SKINNY DALTON MD ? Report ??Date: 12/23/2009 17 :14 ? By the signature above, the attending physician certifies that he/she has ? personally conducted a gross and/or microscopic examination of the described ? specimens and rendered or co nfirmed the above diagnosis. ? Specimen(s) Received: ? A. ?Portion rig ht fallopian tube ? B. ? Portion left fallop poli tube ? Clinical History: ? Desired permanent jeremiah rilization ? Gross Description: ? Received in formalin labelled Aydee Bates and portion right ? fallopian tube is a 3.5 cm in length by 0.5 cm in average diameter lyle-purple, tubular, soft tissue, grossl y consistent with a segment of fallopian tube. ? Sectioning reveals a lyle-whi te cut surface with a pinpoint lumen throughout. ? Two account service representative cross sec tions are submitted as (A). ? Received in formalin michele d Aydee Bates and portion left fallopian ? tube is a 3.2 cm in length by 0.7 cm in average diameter young-purple, tubular, soft tissue, grossly consist ent with a segment of fallopian tube. ??Sectioning ?? reveals a lyle-white cut surf lisette with a pinpoint lumen throughout. ??Two ? account service representative cross section s are submitted as (B). ??(Brittany Amador)/daphne ? End of Report ? Specimen Performing Organization Address City/State/ZIP Code Phon e Number [facility] [address] [place] [phone] SERVICES [facility] [address] [place] [phone] documented in this encounter Visit Diagnoses Not on filedocumented in this encounter
--- OUTSIDE RECORDS SUMMARY | 2022-04-21 00:07 | XMS_ITS | Encounter Summary ---
:1985 Author Organization [facility] Address [address] [place] [address] Care Team Providers Name Role Phone Unavailable Primary Care Provider Unavailable Encounter Details Date Type Department Care Team Description 10/01/2007 Hospital Encounter [facility] - Brian Man CNM Other [address] [place] [phone] (Wo rk) Social History Tobacco Use Types Packs/Day Years Used Date Never Assessed Sex Assigned at Date Recorded Not on file documented as of this encounter Discharge Disposition Disposition Code Departure Means Destination Home or Self Care documented in this encounter Plan of Treatment Pending Results Name Type Priority Associated Diagnoses Date/Ti me CYTOPATHOLOGY Pathology Routine 05/28/2009 0:0 0 EST Scheduled Orders Name Type Priority Associated Diagnoses Order S chedule CYTOPATHOLOGY Pathology Routine For medication s that can be administered at any time during the hospitaliza tion for visit such as immuniz ations. for 1 Occurrences sta rting 05/31/2009 documented as of this encounter Procedures Procedure Name Priority Date/Time Associated Diagnosis Comme nts CYTOPATHOLOGY Routine 05/28/2009 0:00 EST Results for this procedure are i n the results section . CYTOPATHOLOGY Routine 08/06/2008 0:00 EST Results for this procedure are i n the results section . CYTOPATHOLOGY Routine 10/01/2007 0:00 EDT Results for this procedure are i n the results section . documented in this encounter Results CYTOPATHOLOGY (05/28/2009 0:00 EST) Pathology Report: CYTOPATHOLOGY REPORT ? [facility] ? LAB Reports generated via electr onic interface contain original data; ? however they are lacking the format of the original report. ? Caution should be taken when reading/interpreting unformatted reports. ? Name: ? ROMA BATES ? Accession #: ? [id number] ? : ? 1985 (Age: 24) ??F ?Collect Date: ? 05/28/2009 ? Location: ? [facility] ? Receive Date: ? 05/31/2009 ? Provider: ?CORA TRACIE MAN CNM ? Copy to: ? Specimen/Source: ? Pap Test, Cervix/Endocervix, ThinPrep Imaging System ? with manual evaluation ? Last Menstrual Period: ? 9/12/09 ? Menstrual/ Status: ? Previous Gynecologic Patholo gy: ? Yes: Hx abn. paps ? Treatment History: ? Colposcopy: ? diagnosis ? Other: ? Additional clinical informat ion: Paps neg 06, 08 ? HPVA - HPV testing requested if ASC-US on the current ThinPrep Pap test. ? SPECIMEN ADEQUACY ? Satisfactory for Eval uation ? - transformation zone compon ent present ? GENERAL CATEGORIZATION ? Negative for Intraepi thelial Lesion or Malignancy ? INTERPRETATION ? Reactive cellular janis nges associated with inflammation present (includes ?? repair). ? Document reviewed and electr onically signed by: ? Rosendo Faud Deni , MD ? Report Date: ??12/01/ 2009 16:27 ? End of Report ? Specimen Performing Organization Address [facility]/State/ZIP Code Phon e Number [facility] [address] [place] [address] SERVICES [facility] [address] [place] [address] CYTOPATHOLOGY (08/06/2008 0:00 EST) Pathologist [facility] Pathology Report: CYTOPATHOLOGY REPORT ? [facility] ? LAB Reports generated via electr onic interface contain original data; ? however they are lacking the format of the original report. ? Caution should be taken when reading/interpreting unformatted reports. ? Name: ? ROMA BATES ? Accession #: ? [id number] ? : ? 1985 (Age: 23) ??F ?Collect Date: ? 08/06/2008 ? Location: ? [facility] ? Receive Date: ? 08/10/2008 ? Provider: ?PATRICK TH IBODEAU PATROL OFFICER ? Copy to: ? Specimen/Source: ? Pap Test, Cervix/Endocervix, ThinPrep Imaging System ? with manual evaluation ? Last Menstrual Period: ? 1/20/09 ? Other: ? HPVA - HPV testing requested if ASC-US on the current ThinPrep Pap test. ? SPECIMEN ADEQUACY ? Satisfactory for Eval uation ? - transformation zone compon ent present ? GENERAL CATEGORIZATION ? Negative for Intraepi thelial Lesion or Malignancy ? INTERPRETATION ? Shift in monet presen t suggestive of bacterial vaginosis. ? Document reviewed and electr onically signed by: ? Cora Dutta, SCT( ASCP) ? Report Date: ??02/06/ 2009 11:51 ? End of Report ? Specimen Performing Organization Address City/State/[facility] Code Phon e Number [facility] [address] [place] [address] SERVICES [facility] [address] [place] [address] CYTOPATHOLOGY (10/01/2007 0:00 EDT) Pathology Report: [facility]ATHOLOGY REPORT [facility] Reports generated via electronic interface contain gracie ginal data; however they are lacking the format of the original re port. Caution should be taken when reading/interpreting unfo rmatted reports. Name: ? ROMA BATES ? Accession #: ? [id number] : ? 1985 (Age: 22) ??F ?Collect Date: ? 09/07 Location: ? [facility] ? Receive Date : ? 10/02/2007 Provider: ?BRIAN MAN [facility] Copy to: ? Specimen/Source: ? ThinPrep Pap Test, Cervix/Endocervix, processed on Social IQ (Social Influence Quotient) ThinPrep Imaging System, with manual evaluation Last Menstrual Period: ? 06/02/07 Menstrual/ Status: ? Previous Gynecologic Pathology: ? Yes: Hx abnormal paps, 05/14 pap neg. Treatment History: ? Colposcopy: bx ? diag. Other: ? HPVA - HPV testing requested if ASC-US on the current ThinPrep Pap test. ? SPECIMEN ADEQUACY ? Satisfactory for Evaluation - transformation zone component present GENERAL CATEGORIZATION ? Negative for Intraepithelial Lesion or Malignan cy INTERPRETATION ? Reactive cellular janis nges associated with inflammation present (includes repair). Shift in monet present suggestive of bacterial vaginos is. Fungal organisms present morphologically consistent wi th Louann species. ? Document reviewed and electronically signed by: ? GERMAIN BARRAGAN MD [facility] ? Report Date: ??10/09/2007 10:23 End of Report Specimen Performing Organization Address City/State/ZIP Code Phon e Number [facility] [address] [place] [address] SERVICES [facility] [address] [place] [address] documented in this encounter Visit Diagnoses Not on filedocumented in this encounter
--- OUTSIDE RECORDS SUMMARY | 2022-04-21 00:07 | XMS_ITS | Encounter Summary ---
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 Primary Care Provider Encounter Details Date Type Department Care Team Description 07/30/2020 Lab Requisition [facility] Outr Resulting Lab, Pathology & Laboratory Provider [facility] [address], [place] [id number] Social History Tobacco Use Types Packs/Day Years Used Date Never Assessed Sex Assigned at Date Recorded Not on file documented as of this encounter Plan of Treatment Not on filedocumented as of this encounter Procedures Procedure Name Priority Date/Time Associated Comments Diagnosis DO NOT ORDER Today 07/30/2020 10:17 Results for this STANDALONE - BROAD EST procedure are in COVID TEST the results section. COVID-19 TESTING Routine 07/30/2020 10:17 Results for this EST procedure are i n the results section. documented in this encounter Results DO NOT ORDER STANDALONE - BROAD COVID TEST (07/30/2020 10:17 EST) COVID-19 rt-PCR NEGATIVE Negative [facility] Result Comment: LABORATORY 2019-novel Coronavirus (2019 -nCoV) not detected by the qRT-PCR assay. Consider testing for other respiratory viruses or re-collecting for 2019-nCoV testing. Note: Optimum timing for peak viral levels du ring infections caused by 20 -nCoV have not been determined. Collection of multiple specimens from the same patient may be necessary to detect the virus. Limitations Positive results are indicat nguyễn of active infection with SARS-CoV-2 but do not rule out bacterial infection or co-infection with other viruses. The agent detected may not be the definite cause of diseas e. In addition, detection of viral RNA may not indicate the presence of infectious virus or that SARS-CoV-2 is the causative agent for clinical symptoms. Negative results do not prec lude SARS-CoV-2 infection and should not be used as the sole basis for patient management decisions. Negative results must be combined with clinical observations, patient his tory, and epidemiological in formation. False negative results may also occur if amplification inhibitors are present in the specimen or if inadequate numbers of organisms are present in the specimen. Op timum specimen types and srikanth ing for peak viral levels during infections caused by SARS-CoV-2 have not been fully determined. Collection of multiple specimens (types and time points) from the same patient may be necessary to detect the virus. The test was validated for u se with upper respiratory specimens obtained via nasopharyngeal or oropharyngeal swabs in VTM, UTM, M4, M5, M6, saline, and MTM media. The performance of this test has not be en established for other spe cimens. Specimens collected using other FDA recommended Specimen Collection Materials listed in the FDA COVID-19 [employer] communication (October 02, 2019) are pr ocessed with the caveat that they were not all validated for use with this test and the result must be interpreted in this context. Furthermore, a false negative results may occur if a specimen is improperly collected, transported or handled. If the virus mutates in the RT-PCR target region, SARS-CoV-2 may not be detected or may be detected less predictably. Inhibitors or other types of interference may produce a false negative result. An interference study evaluating the effect of common cold medications was not performed. This test is not FDA-cleared but its performance characteristics were established by our CLIA-certified, CAP-accredited, high complexity laboratory in accordance with CLIA regulations, [employer] (CAP) guidel [place] (Sep 25, 2019), and FDA guidance (Sep 06, 2019). This test is only for use un terrence the Food and Drug Administration's Emergency Use Authorization. Specimen Swab - Entire nasopharynx (body structur e) Performing Organization Address City/State/ZIP Code Phon e Number [facility] [place] [place] COVID-19 TESTING (07/30/2020 10:17 EST) COVID-19 rt-PCR NEGATIVE Negative [facility] Result Comment: LABORATORY 2019-novel Coronavirus (2019 -nCoV) not detected by the qRT-PCR assay. Consider testing for other respiratory viruses or re-collecting for 2019-nCoV testing. Note: Optimum timing for peak viral levels du ring infections caused by 20 -nCoV have not been determined. Collection of multiple specimens from the same patient may be necessary to detect the virus. Limitations Positive results are indicat nguyễn of active infection with SARS-CoV-2 but do not rule out bacterial infection or co-infection with other viruses. The agent detected may not be the definite cause of diseas e. In addition, detection of viral RNA may not indicate the presence of infectious virus or that SARS-CoV-2 is the causative agent for clinical symptoms. Negative results do not prec lude SARS-CoV-2 infection and should not be used as the sole basis for patient management decisions. Negative results must be combined with clinical observations, patient his tory, and epidemiological in formation. False negative results may also occur if amplification inhibitors are present in the specimen or if inadequate numbers of organisms are present in the specimen. Op timum specimen types and srikanth ing for peak viral levels during infections caused by SARS-CoV-2 have not been fully determined. Collection of multiple specimens (types and time points) from the same patient may be necessary to detect the virus. The test was validated for u with upper respiratory specimens obtained via nasopharyngeal or oropharyngeal swabs in VTM, UTM, M4, M5, M6, saline, and MTM media. The performance of this test has not be en established for other spe cimens. Specimens collected using other FDA recommended Specimen Collection Materials listed in the FDA COVID-19 [employer] communication (October 02, 2019) are pr ocessed with the caveat that they were not all validated for use with this test and the result must be interpreted in this context. Furthermore, a false negative results may occur if a specimen is improperly collected, transported or handled. If the virus mutates in the RT-PCR target region, SARS-CoV-2 may not be detected or may be detected less predictably. Inhibitors or other types of interference may produce a false negative result. An interference study evaluating the effect of common cold medications was not performed. This test is not FDA-cleared but its performance characteristics were established by our CLIA-certified, CAP-accredited, high complexity laboratory in accordance with CLIA regulations, [employer] (CAP) guidel [place] (Sep 25, 2019), and FDA guidance (Sep 06, 2019). This test is only for use un terrence the Food and Drug Administration's Emergency Use Authorization. 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
== END ==
PROVIDERS: PCP Nurse Practitioner Family; Visit Provider Nurse Practitioner Family
DX: K76.0 Fatty (change of) liver, not elsewhere classified (principal); R16.0 Hepatomegaly, not elsewhere classified
CPT/HCPCS: 76700

== ENCOUNTER 2022-04-27 11:41 | Outpatient (REF) | payer MEDICAID, SELFPAY ==
[2022-04-27 22:17] LABS: Progesterone 0.6 ng/mL (See Table)
[2022-05-01 10:27] LABS: Estradiol, Mass Spectrometry 26 pg/mL; Estrone 75 pg/mL
[2022-05-10 14:54] LABS: Testosterone, Free 0.67 ng/dL (<0.13-1.00); Testosterone, Total 17 ng/dL (8-60)
== END 2022-04-27 11:42 | disposition home or self-care (01) ==
LOC: NCHCN 11:41
PROVIDERS: PCP Nurse Practitioner Family; Visit Provider Nurse Practitioner Family
DX: R61 Generalized hyperhidrosis (principal)
CPT/HCPCS: 84402; 84403; 82670; 82679; 84144

== ENCOUNTER 2022-08-24 08:47 | Outpatient (RCR) | payer MEDICAID, SELFPAY ==
--- NOTE | 2022-08-24 08:45 | HOLTER_ITS ---
APPROVED REPORT Conclusion This is a Holter monitor ordered for palpitations Rhythm throughout was sinus with an average heart rate of 108. Minimum was 88, maximum 128 There were no ventricular dysrhythmias A total of 7 isolated atrial premature beats occurred There was no atrial fibrillation no SVT no pauses greater than 3 seconds no high-grade AV block Patient symptoms were reported which corresponded to sinus rhythm
== END 2022-09-05 23:59 | disposition home or self-care (01) ==
LOC: CARDOPNVT 08:47
PROVIDERS: PCP Nurse Practitioner Family; Visit Provider Nurse Practitioner Family
DX: R00.2 Palpitations (principal); I49.1 Atrial premature depolarization
CPT/HCPCS: 93227; 93225; 93226

== ENCOUNTER 2022-11-14 12:35 | Emergency (ER) | payer MEDICAID, SELFPAY ==
[2022-11-14 12:38] VITALS: BP 135/71; PULSE 82; RESP 18; TEMP 37.1; O2SAT 98
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
[2022-11-14] MEDS: Cyclobenzaprine 10 MG TAB PO (13:55)
[2022-11-14] MEDS: oxyCODONE 5 mg/Acetaminophen 325 mg TAB 1 TAB PO (13:56)
[2022-11-14 15:25] VITALS: BP 135/71; PULSE 82; RESP 18; TEMP 37.1; O2SAT 98
== END 2022-11-14 15:26 | disposition home or self-care (01) ==
PROVIDERS: Emergency Provider Emergency Medicine Emergency Medical Services; PCP Nurse Practitioner Family
DX: R51.9 Headache, unspecified (principal); R42 Dizziness and giddiness; M54.50 Low back pain, unspecified; V43.52XA Car driver injured in collision with other type car in traffic accident, initial encounter
CPT/HCPCS: 99284; 71046; 72072; 72110

== ENCOUNTER 2022-12-09 21:53 | Emergency (ER) | payer MEDICAID, SELFPAY ==
[2022-12-09] VITALS (16 sets, daily range): BP systolic 167–168; BP diastolic 102–116; PULSE 82–111; RESP 14–32; TEMP 36.8; O2SAT 91–98
--- NOTE | 2022-12-09 21:45 | RT.EKG_ITS ---
APPROVED REPORT Exam: Resting ECG Reason for Exam: chest pain Patient Location: E HR:106 bpm ECG Measurements Heart Rate 106 AXIS [place] 127 P 51 QRSd 93 QRS 62 QT 329 T -16 QTc 437 Conclusion Sinus tachycardia...rate> 99
--- NOTE | 2022-12-09 22:00 | DI.RAD_ITS ---
Exam(s) XR PORTABLE CHEST AP EXAM: XR PORTABLE CHEST AP CLINICAL HISTORY: chest pain TECHNIQUE: 2D digital imaging was performed of the chest. One image was obtained. An AP view was ob tained. COMPARISON: CR XR CHEST 2V PA LATERAL from 11/14/2022 FINDINGS: MEDIASTINUM: Normal. HEART: Normal. PULMONARY VASCULATURE: Normal. LUNGS: Clear. PLEURAL SPACE: No pleural effusion or pneumothorax. BONE:Within normal limits for the patient's age. OTHER FINDINGS:Normal. IMPRESSION: No acute pulmonary findings. DATA REPOSITORY: RADIATION DOSE DELIVERED:
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
[2022-12-09] MEDS: Prochlorperazine 10 MG/2 ML VIAL IVP (22:40)
[2022-12-09] MEDS: Normal Saline 1,000 ML 1000 ML IV (22:40)
[2022-12-09 22:48] LABS: Abs Immature Grans 0.05 10^3/uL (0.0-0.06); Absolute Basophil Count 0.07 10^3/uL (0.0-0.2); Absolute Lymphocyte Count 4.49 10^3/uL (1.2-3.4); Absolute Monocyte Count 0.82 10^3/uL (0.1-0.8); BE (Venous) 3 mmol/L (-2-3); Basophils % 0.5; Eosinophils % 1.8; HCO3 (Venous) 27 mmol/L (23-28); HCT 44.1 % (36.0-46.0); Immature Grans % 0.4; Lymphocytes % 34.5; MCH 31.6 pg (27.0-33.0); MCV 93 fL (80-95); MPV 9.7 fL (8.0-11.0); Monocytes % 6.3; Neutrophils % 56.5; O2 Sat (Venous) 81 %; Platelet Count 340 10^3/uL (130-400); RBC 4.74 10^6/uL (3.93-5.22); RDW 12.3 % (11.7-14.6); RDW-SD 42.5 fL; TCO2 (Venous) 24 mmol/L (24-29); pCO2 (Venous) 43 mmHg (41-51); pH (Venous) 7.42 (7.31-7.41); pO2 (Venous) 43 mmHg
[2022-12-09 22:49] LABS: Absolute Eosinophil Count 0.23 10^3/uL (0.0-0.7); Absolute Neutrophil Count 7.35 10^3/uL (1.2-6.7)
[2022-12-09 23:07] LABS: ALT 36 U/L (14-59); AST 16 U/L (15-37); Albumin 3.8 g/dL (3.4-5.0); Alkaline Phosphatase 138 U/L (46-116); Anion Gap 9.5 mmol/L (3-11); BUN 8 mg/dL (7-18); Bilirubin, Total 0.2 mg/dL (0.2-1.0); CO2 27.5 mmol/L (21.0-32.0); CREATININE 0.9 mg/dL (0.55-1.02); Calcium 9.1 mg/dL (8.5-10.1); Chloride 103 mmol/L (98-107); Glucose 133 mg/dL (74-106); Magnesium 2.1 mg/dL (1.8-2.4); Potassium 3.5 mmol/L (3.5-5.1); Sodium 140 mmol/L (136-145); Total Protein 7.2 g/dL (6.4-8.2); Troponin I < 50 ng/L (<or=60)
[2022-12-09 23:22] LABS: D-Dimer 355 ng/mlFEU (<500)
--- NOTE | 2022-12-09 23:52 | DI.VRAD_ITS ---
PROCEDURE INFORMATION: Exam: XR Chest Exam date and time: 12/09/2022 11:07 PM Age: 37 years old Clinical indication: Pain; Chest pressure TECHNIQUE: Imaging protocol: Radiologic exam of the chest. Views: 1 view. COMPARISON: CR XR CHEST 2V PA LATERAL 11/14/2022 2:01 PM FINDINGS: Lungs: No consolidation. Pleural spaces: No pleural effusion. No pneumothorax. Heart/Mediastinum: No cardiomegaly. Bones/joints: Unremarkable. IMPRESSION: No acute findings. Dictated and Authenticated by: Kay Rodriguez MD. Ordering:MALINDA Hunt MD
[2022-12-10 00:05] VITALS: BP 147/93; PULSE 82; RESP 28; TEMP 36.8; O2SAT 91
[2022-12-10 00:15] VITALS: RESP 18
== END 2022-12-10 00:01 | disposition home or self-care (01) ==
PROVIDERS: Emergency Provider Emergency Medicine; PCP Nurse Practitioner Family
DX: R07.9 Chest pain, unspecified (principal); R06.02 Shortness of breath
CPT/HCPCS: 36415; 80053; 82805; 87635; 93005; 96361; 96374; 99284; 71045; 83735; 84484; 85025; 85379; 93010; J0780

== ENCOUNTER 2023-05-12 18:28 | Emergency (ER) | payer MEDICAID, SELFPAY ==
[2023-05-12] VITALS (69 sets, daily range): BP systolic 120–249; BP diastolic 33–229; PULSE 84–178; RESP 17–36; TEMP 36.9; O2SAT 91–99
--- NOTE | 2023-05-12 18:15 | DI.CT_ITS ---
Exam(s) CT HEAD WO EXAM: CT HEAD WO CLINICAL HISTORY: AMS. TECHNIQUE: Imaging Protocol: Axial computed tomography images with coronal and sagittal reformatted images were created and reviewed COMPARISON: CT CT HEAD WO from 10/07/2018 FINDINGS: Ventricles and Extra axial spaces: Normal in size and morphology for the patient's age. Hemorrhage: None. Cerebral parenchyma: Normal sevilla-white matter differentiation. No acute midline shift or mass effect . Midline shift: None. Brainstem/Cerebellum: Normal. Calvarium: Normal. Visualized Paranasal sinuses/Mastoids: Chronic right maxillary sinus opacification. The remaining vi sualized paranasal sinuses are clear as are the mastoid air cells. Soft Tissues: Unremarkable. IMPRESSION: No acute intracranial process. RADIATION DOSE DELIVERED: Total DLP DATA REPOSITORY: All CT scans at this facility are submitted to the National Radiology Data Registry (NRDR) Dose Index Registry (DIR) with the [employer] (ACR). RADIATION OPTIMIZATION: All CT scans at this facility use at least one of these dose optimization te chniques: automated exposure control; mA and/or kV adjustment per patient size (includes targeted exa ms where dose is matched to clinical indication); or iterative reconstruction.
--- NOTE | 2023-05-12 18:15 | RT.EKG_ITS ---
APPROVED REPORT Exam: Resting ECG Reason for Exam: [facility] Patient Location: E HR:106 bpm ECG Measurements Heart Rate 106 AXIS [place] 155 P 47 QRSd 92 QRS 50 QT 327 T -47 QTc 434 Conclusion Sinus tachycardia. 106. non specific ST depressions
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
[2023-05-12 18:35] LABS: Abs Immature Grans 0.05 10^3/uL (0.0-0.06); Absolute Basophil Count 0.07 10^3/uL (0.0-0.2); Absolute Eosinophil Count 0.12 10^3/uL (0.0-0.7); Absolute Lymphocyte Count 4.58 10^3/uL (1.2-3.4); Absolute Monocyte Count 0.76 10^3/uL (0.1-0.8); Basophils % 0.5; Eosinophils % 0.9; HCT 43.1 % (36.0-46.0); HGB 14.7 g/dL (11.2-15.7); Immature Grans % 0.4; Lymphocytes % 33.7; MCH 32.2 pg (27.0-33.0); MCHC 34.1 % (32.0-36.0); MCV 94 fL (80-95); MPV 9.6 fL (8.0-11.0); Monocytes % 5.6; Neutrophils % 58.9; Platelet Count 415 10^3/uL (130-400); RBC 4.57 10^6/uL (3.93-5.22); RDW 13.2 % (11.7-14.6); RDW-SD 45.3 fL; WBC 13.58 10^3/uL (4.4-10.8)
[2023-05-12 18:45] LABS: Prothrombin Time 10.4 sec (9.1-11.1)
[2023-05-12 18:51] LABS: Ammonia < 10 umol/L (11-32)
[2023-05-12 18:52] LABS: Bilirubin Negative (Negative); Blood Trace-intact (Negative); Clarity Clear (Clear); Glucose Negative (Negative); Ketones Trace mg/dL (Negative); Leukocyte Esterase Negative (Negative); Nitrite Negative (Negative); Specific Gravity >= 1.030 (1.005-1.025)
--- NOTE | 2023-05-12 18:54 | DI.VRAD_ITS ---
PROCEDURE INFORMATION: Exam: CT Head Without Contrast Exam date and time: 05/12/2023 6:23 PM Age: 38 years old Clinical indication: Altered mental status/memory loss; Patient HX: AMS TECHNIQUE: Imaging protocol: Computed tomography of the head without contrast. COMPARISON: CT HEAD WO 10/07/2018 8:08 PM FINDINGS: Brain: No intracranial hemorrhage. No cerebral edema. No mass. No large territory acute CVA. Cerebral ventricles: No acute hydrocephaly. Paranasal sinuses: Chronic right maxillary sinus opacification. No sinus air-fluid levels. Mastoid air cells: Visualized mastoid air cells are well aerated. Bones/joints: Cranium is unremarkable. No skeletal lesions. Soft tissues: Scalp soft tissues are unremarkable. IMPRESSION: 1. No acute intracranial findings. 2. Chronic right maxillary sinus opacification. No sinus air-fluid levels. 3. No significant interval change since 10/07/2018. Dictated and Authenticated by: Heath Schilling MD. Ordering:[facility] Yahaira Salcedo MD
[2023-05-12 18:55] LABS: Lactate 1.5 mmol/L (0.6-1.4)
[2023-05-12 18:56] LABS: ETHANOL BLOOD < 3.0 mg/dL (<10)
[2023-05-12 19:04] LABS: ALT 35 U/L (14-59); AST 17 U/L (15-37); Albumin 3.7 g/dL (3.4-5.0); Alkaline Phosphatase 117 U/L (46-116); Anion Gap 11.3 mmol/L (3-11); BUN 6 mg/dL (7-18); Bilirubin, Total 0.2 mg/dL (0.2-1.0); CO2 24.7 mmol/L (21.0-32.0); Calcium 9.4 mg/dL (8.5-10.1); Chloride 101 mmol/L (98-107); Creatine Kinase 95 U/L (26-192); Estimated GFR 73.04 (mL/min/1.73m2); Glucose 163 mg/dL (74-106); NT-proBNP 31 pg/mL (<300); Potassium 3.4 mmol/L (3.5-5.1); Sodium 137 mmol/L (136-145); Total Protein 7.5 g/dL (6.4-8.2); Troponin I < 50 ng/L (<or=60)
[2023-05-12 19:04] LABS: Bacteria Rare HPF (Negative); Crystals Negative HPF (Negative); Epithelial Cells Few HPF (Negative); Mucus Moderate (Negative); RBC 0-2 HPF (0-2); WBC Negative HPF (0-5)
[2023-05-12 19:05] LABS: C & S Indicated? No; Casts Negative LPF (Negative)
[2023-05-12 19:06] LABS: *AMPHETAMINES SCREEN URINE Negative (Negative); *BARBITURATES SCREEN URINE Negative (Negative); *BENZODIAZEPINES SCREEN URINE Negative (Negative); Cannabinoids THC Negative (Negative); Cocaine Screen,Urine Negative (Negative); METHADONE URINE SCREEN Negative (Negative); OPIATES URINE SCREEN Negative (Negative)
[2023-05-12 19:07] LABS: Tricyclic Antidepressants Negative (Negative)
[2023-05-12 19:09] LABS: BE (Venous) 1 mmol/L (-2-3); HCO3 (Venous) 25 mmol/L (23-28); O2 Sat (Venous) 88 %; TCO2 (Venous) 22 mmol/L (24-29); pCO2 (Venous) 40 mmHg (41-51); pH (Venous) 7.41 (7.31-7.41); pO2 (Venous) 50 mmHg
[2023-05-12 19:18] LABS: TSH (W/Ref FT4) 1.89 uIU/mL (0.36-3.74)
[2023-05-12 19:29] LABS: Salicylate 6.7 mg/dL (<2.8)
[2023-05-12 19:30] LABS: Acetaminophen < 2 ug/mL (10-30)
[2023-05-12] MEDS: LORazepam 2 MG/ML VIAL (19:30)
[2023-05-12] MEDS: hydrALAZINE 20 MG/ML VIAL 10 MG IVP (19:36)
[2023-05-12] MEDS: levETIRAcetam 1,000 MG in Normal Saline 100 ML 400 MG IVPB (19:40)
[2023-05-12 19:42] LABS: Source Nasal/Nares
[2023-05-12 20:23] LABS: COVID-19 PCR Negative (Negative)
== END 2023-05-12 20:54 | disposition short-term general hospital (02) ==
PROVIDERS: Emergency Provider Emergency Medicine; PCP Nurse Practitioner Family
DX: R41.82 Altered mental status, unspecified (principal); G40.89 Other seizures; G93.40 Encephalopathy, unspecified; F31.89 Other bipolar disorder; I10 Essential (primary) hypertension; F17.210 Nicotine dependence, cigarettes, uncomplicated
CPT/HCPCS: 36415; 80053; 80307; 82550; 82805; 82962; 87635; 93005; 96365; 96375; 99285; 70450; 80320; 80329; 81003; 81015; 82140; 83605; 83735; 83880; 84443; 84484; 85025; 85610; 93010; J0360; J1953; J2060

== ENCOUNTER → 2023-05-16 11:33 | Outpatient (CLI) | payer MEDICAID, SELFPAY ==
--- NOTE | 2023-05-16 | DI.RAD_ITS ---
Exam(s) XR LUMBAR SPINE COMPLETE EXAM: XR LUMBAR SPINE COMPLETE CLINICAL HISTORY: LUMBAR BACK PAIN M54.50 FALL IMPACT TO LOWER BACK 2 DAYS AGO. TECHNIQUE: 2D digital imaging was performed of the lumbar spine. Five images were obtained. AP, la teral, right oblique, left oblique and L5-S1 spot views were obtained. COMPARISON: CR XR LUMBAR SPINE COMPLETE from 11/14/2022 FINDINGS: BONES: No fracture or destructive lesion. Small endplate osteophytes are seen at multiple levels of t he lumbar spine. Mild degenerative changes are seen at the L5-S1 facet joints. DISKS: Intervertebral disc spaces are maintained. ALIGNMENT: Lumbar spinal alignment is within normal limits. No spondylolysis or spondylolisthesis. SOFT TISSUE: Normal. IMPRESSION: Mild degenerative changes seen in the lumbar spine. DATA REPOSITORY: RADIATION DOSE DELIVERED:
== END ==
PROVIDERS: PCP Nurse Practitioner Family; Visit Provider Nurse Practitioner Family
DX: M47.816 Spondylosis without myelopathy or radiculopathy, lumbar region (principal)
CPT/HCPCS: 72110

== ENCOUNTER 2023-06-23 14:25 | Emergency (ER) | payer MEDICAID, SELFPAY ==
[2023-06-23] VITALS (25 sets, daily range): BP systolic 146–188; BP diastolic 44–130; PULSE 96–118; RESP 11–32; TEMP 36.6; O2SAT 93–98
--- NOTE | 2023-06-23 14:30 | RT.EKG_ITS ---
APPROVED REPORT Exam: Resting ECG Reason for Exam: Chest Pain Patient Location: E HR:113 bpm ECG Measurements Heart Rate 113 AXIS NH 131 P 53 QRSd 90 QRS 56 QT 317 T -7 QTc 435 Conclusion Sinus tachycardia...rate> 99 Physician: sinus tachycardia with a rate of [address] no STEMI. No significant ST elevation. Minimal dep ression in V3. Small Q-wave noted in lead III. However these appear to be consistent with prior EKG noted on 05/12/2023
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
[2023-06-23 15:01] LABS: Abs Immature Grans 0.05 10^3/uL (0.0-0.06); Absolute Basophil Count 0.07 10^3/uL (0.0-0.2); Absolute Eosinophil Count 0.17 10^3/uL (0.0-0.7); Absolute Lymphocyte Count 4.91 10^3/uL (1.2-3.4); Basophils % 0.5; Eosinophils % 1.2; HCT 45.7 % (36.0-46.0); HGB 15.4 g/dL (11.2-15.7); Immature Grans % 0.4; Lymphocytes % 35.3; MCHC 33.7 % (32.0-36.0); MCV 95 fL (80-95); MPV 9.3 fL (8.0-11.0); Monocytes % 5.5; Neutrophils % 57.1; Platelet Count 411 10^3/uL (130-400); RBC 4.82 10^6/uL (3.93-5.22); RDW 12.8 % (11.7-14.6); RDW-SD 44.5 fL
[2023-06-23 15:03] LABS: Absolute Monocyte Count 0.76 10^3/uL (0.1-0.8); Absolute Neutrophil Count 7.94 10^3/uL (1.2-6.7)
[2023-06-23] MEDS: Acetaminophen 500 MG TAB 1000 MG PO (15:06)
[2023-06-23] MEDS: Normal Saline 1,000 ML 1000 ML IV (15:07)
[2023-06-23 15:15] LABS: PTT Activated 29.4 sec (23.6-32.8); Prothrombin Time 10.2 sec (9.1-11.1)
[2023-06-23 15:24] LABS: ALT 49 U/L (14-59); AST 30 U/L (15-37); Albumin 3.9 g/dL (3.4-5.0); Alkaline Phosphatase 133 U/L (46-116); Anion Gap 8.2 mmol/L (3-11); BUN 6 mg/dL (7-18); Bilirubin, Total 0.3 mg/dL (0.2-1.0); CO2 27.8 mmol/L (21.0-32.0); Calcium 9.3 mg/dL (8.5-10.1); Chloride 104 mmol/L (98-107); Estimated GFR 73.04 (mL/min/1.73m2); Glucose 165 mg/dL (74-106); Potassium 3.6 mmol/L (3.5-5.1); Sodium 140 mmol/L (136-145); TSH (W/Ref FT4) 2.08 uIU/mL (0.36-3.74); Total Protein 7.5 g/dL (6.4-8.2); Troponin I < 50 ng/L (<or=60)
[2023-06-23 15:30] LABS: D-Dimer 302 ng/mlFEU (<500)
--- NOTE | 2023-06-23 15:59 | DI.CT_ITS ---
Exam(s) CT CHEST PE CTA EXAM: CT CHEST PE CTA CLINICAL HISTORY: mid left central pleuritic chest pain, r/o PE. TECHNIQUE: Imaging Protocol: Axial CT angiography was performed with multi-slice acquisition and mu lti-planar and/or 3D reconstructions. CONTRAST MATERIAL: Intravenous: Omnipaque 350 contrast volume:84 mL COMPARISON: CT CT CHEST PE CTA from 04/09/2022 FINDINGS: The examination is limited due to patient motion artifact. Tracheobronchial tree: Patent where visualized. Pulmonary parenchyma: No consolidation or dominant measurable mass. No architectural distortion. Pulmonary Arteries: Due to motion artifact and bolus timing, there is poor opacification of subsegmen juana pulmonary arteries. No large central pulmonary embolus is present. Mediastinum and Sarahi: No dominant adenopathy or fluid collection. The esophagus is unremarkable. Visualized thyroid gland: Unremarkable. Pleura: No effusion or pneumothorax. Heart: The heart is not dilated. No coronary artery calcifications are seen. No pericardial effusion. Aorta: Thoracic aorta non-dilated. Due to the bolus timing, the aorta is not opacified. Upper abdomen: Unremarkable. Soft tissues: Unremarkable. Bones: Within normal limits for the patient's age. IMPRESSION: No evidence of pulmonary embolism or aneurysm. RADIATION DOSE DELIVERED: Total DLP DATA REPOSITORY: All CT scans at this facility are submitted to the National Radiology Data Registry (NRDR) Dose Index Registry (DIR) with the [employer] (ACR). RADIATION OPTIMIZATION: All CT scans at this facility use at least one of these dose optimization te chniques: automated exposure control; mA and/or kV adjustment per patient size (includes targeted exa ms where dose is matched to clinical indication); or iterative reconstruction.
[2023-06-23] MEDS: Normal Saline - Diluent 50 ML VIAL IV (16:03)
[2023-06-23] MEDS: Omnipaque 350 MG/ML 100 ML BTL IJ (16:05)
--- NOTE | 2023-06-23 16:25 | DI.VRAD_ITS ---
PROCEDURE INFORMATION: Exam: CTA Chest With Contrast Exam date and time: 06/23/2023 3:52 PM Age: 38 years old Clinical indication: Angina pectoris; Patient HX: Chest pain, mid left central pleuritic pain. TECHNIQUE: Imaging protocol: Computed tomographic angiography of the chest with contrast. Exam focused on the arteries. 3D rendering (Not supervised by radiologist): MIP and/or 3D reconstructed images were created by the technologist. Radiation optimization: All CT scans at this facility use at least one of these dose optimization techniques: automated exposure control; mA and/or kV adjustment per patient size (includes targeted exams where dose is matched to clinical indication); or iterative reconstruction. Contrast material: OMNI-PAQUE 350; Contrast volume: 84 ml; Contrast route: INTRAVENOUS (IV); COMPARISON: CT CHEST PE CTA 04/09/2022 12:09 PM FINDINGS: Pulmonary arteries: Normal. No pulmonary emboli. Aorta: Unremarkable. No aortic aneurysm. No aortic dissection. Lungs: Unremarkable. No consolidation. No masses. Pleural spaces: Unremarkable. No pneumothorax. No pleural effusion. Heart: Heart size borderline prominent. Lymph nodes: Unremarkable. No enlarged lymph nodes. Bones/joints: Unremarkable. No acute fracture. Soft tissues: Umbilical piercing noted. IMPRESSION: No evidence for pulmonary embolus. Dictated and Authenticated by: Mara Thomason MD. Ordering:NAYELI Wilson MD
--- NOTE | 2023-06-23 16:30 | RT.EKG_ITS ---
APPROVED REPORT Exam: Resting ECG Reason for Exam: chest pain Patient Location: E HR:92 bpm ECG Measurements Heart Rate 92 AXIS GA 120 P 41 QRSd 90 QRS 38 QT 358 T 19 QTc 443 Conclusion Sinus rhythm...normal P axis, V-rate 60- 99 Physician: no stemi, unchanged from prior ekg today
[2023-06-23] MEDS: Ketorolac 15 MG/ML VIAL IVP (16:49)
[2023-06-23 17:53] LABS: Troponin I < 50 ng/L (<or=60)
== END 2023-06-23 18:13 | disposition home or self-care (01) ==
PROVIDERS: Emergency Provider Student in an Organized Health Care Education/Training Program; PCP Nurse Practitioner Family
DX: R07.9 Chest pain, unspecified (principal); R51.9 Headache, unspecified; R00.0 Tachycardia, unspecified; I10 Essential (primary) hypertension; F17.210 Nicotine dependence, cigarettes, uncomplicated
CPT/HCPCS: 36415; 71275; 80053; 93005; 96361; 96374; 99285; 84443; 84484; 85025; 85379; 85610; 85730; 93010; 99284; J1885; J3490

== ENCOUNTER 2023-08-22 16:18 | Outpatient (REF) | payer MEDICAID, SELFPAY ==
--- OUTSIDE RECORDS SUMMARY | 2023-08-22 16:22 | XMS_ITS | Continuity of Care Document ---
Author Name Unknown Organization [facility] Ambulatory Clinics Address [address] [place] [address] Care Team Providers Care Barrel Rifler Hook Name Role Phone DARLING JANSEN APRN Primary Care Physician [phone] Encounter [facility]BR [id number] Date(s): 06/27/23 - 06/27/23 [facility] Ambulatory Clinics [address] [place] [address]- [place] Discharge Disposition: Home Assessment and Plan Future Appointments Patient Care team information Care Team Personnel Name: DARLING JANSEN APRN Position: No Access Member Role: Primary Care Physician Address: Address: [address] Care Team Related Persons Name: KATIRNA MCCORMICK Address: Home [address] [place] [address]
[2023-08-22 19:48] LABS: Hemoglobin A1C 6.2 % (<5.7)
== END 2023-08-22 16:19 | disposition home or self-care (01) ==
LOC: NCHCN 16:18
PROVIDERS: PCP Nurse Practitioner Family; Referring Provider Nurse Practitioner Family; Visit Provider Nurse Practitioner Family
DX: R73.03 Prediabetes (principal)
CPT/HCPCS: 83036

== ENCOUNTER 2023-11-29 21:11 | Emergency (ER) | payer MEDICAID, SELFPAY ==
[2023-11-29] VITALS (23 sets, daily range): BP systolic 140–187; BP diastolic 59–161; PULSE 83–136; RESP 12–28; TEMP 36.9; O2SAT 89–99
--- NOTE | 2023-11-29 21:00 | RT.EKG_ITS ---
APPROVED REPORT Exam: Resting ECG Reason for Exam: Patient Location: E HR:104 bpm ECG Measurements Heart Rate 104 AXIS MI 130 P 41 QRSd 90 QRS 43 QT 325 T -12 QTc 428 Conclusion Sinus tachycardia...rate> 99
--- NOTE | 2023-11-29 21:15 | DI.CT_ITS ---
Exam(s) CT CHEST PE CTA EXAM: CT CHEST PE CTA CLINICAL HISTORY: chest pain and tachycardia. TECHNIQUE: Imaging Protocol: Axial CT angiography was performed with multi-slice acquisition and mu lti-planar reconstructions as well as axial, coronal and sagittal MIP reconstructions. CONTRAST MATERIAL: Intravenous: Omnipaque 350 Contrast volume:100 ml COMPARISON: CT CT CHEST PE CTA from 06/23/2023 FINDINGS: Pulmonary Arteries: No evidence of filling defect to suggest pulmonary emboli. Tracheobronchial tree: No mucous plugging. Mediastinum and Sarahi: No dominant adenopathy or fluid collection. Pulmonary parenchyma: Limited evaluation due to expiratory changes and respiratory motion. No consol idation or dominant measurable mass. Pleura: No effusion or pneumothorax. Heart: The heart is not dilated. No coronary artery calcifications are seen. Aorta: Thoracic aorta non-dilated. No dissection. Upper abdomen: Liver enlarged with fatty infiltration. Bones: Unremarkable for age. Tubes, Catheters, and Lines: None Soft tissues: Unremarkable. IMPRESSION: No evidence of pulmonary embolism or other acute abnormality.. RADIATION DOSE DELIVERED: 665.51mGy.cm Total DLP DATA REPOSITORY: All CT scans at this facility are submitted to the National Radiology Data Registry (NRDR) Dose Index Registry (DIR) with the [employer] ([employer]). RADIATION OPTIMIZATION: All CT scans at this facility use at least one of these dose optimization te chniques: automated exposure control; mA and/or kV adjustment per patient size (includes targeted exa ms where dose is matched to clinical indication); or iterative reconstruction.
--- NOTE | 2023-11-29 21:15 | DI.CT_ITS ---
Exam(s) CT HEAD WO EXAM: CT HEAD WO CLINICAL HISTORY: headache. TECHNIQUE: Imaging Protocol: Axial computed tomography images with coronal and sagittal reformatted images were created and reviewed COMPARISON: CT CT HEAD WO from 05/12/2023 FINDINGS: Ventricles and Extra axial spaces: Normal in size and morphology for the patient's age. Hemorrhage: None. Cerebral parenchyma: No evidence of acute infarct or mass. Midline shift: None. Brainstem/Cerebellum: Normal. Calvarium: Normal. Visualized Paranasal sinuses:Mucous retention cysts right maxillary sinus. Mastoids: Clear. Soft Tissues: Unremarkable. ORBITS: Unremarkable. PITUITARY: Not enlarged. IMPRESSION: No acute intracranial process. RADIATION DOSE DELIVERED: 822.98mGy.cm Total DLP DATA REPOSITORY: All CT scans at this facility are submitted to the National Radiology Data Registry (NRDR) Dose Index Registry (DIR) with the [employer] ([employer]). RADIATION OPTIMIZATION: All CT scans at this facility use at least one of these dose optimization te chniques: automated exposure control; mA and/or kV adjustment per patient size (includes targeted exa ms where dose is matched to clinical indication); or iterative reconstruction.
[2023-11-29 21:27] LABS: Abs Immature Grans 0.05 10^3/uL (0.0-0.06); HCT 47.2 % (36.0-46.0); HGB 15.9 g/dL (11.2-15.7); MCH 32.2 pg (27.0-33.0); MCHC 33.7 % (32.0-36.0); MCV 96 fL (80-95); MPV 9.7 fL (8.0-11.0); Platelet Count 391 10^3/uL (130-400); RBC 4.94 10^6/uL (3.93-5.22); RDW 12.9 % (11.7-14.6); RDW-SD 45.8 fL; WBC 14.07 10^3/uL (4.4-10.8)
[2023-11-29] MEDS: Normal Saline 1,000 ML 1000 ML IV (21:27)
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
[2023-11-29] MEDS: Normal Saline Flush 10 ML SYR IVP (21:35)
[2023-11-29] MEDS: Normal Saline - Diluent 50 ML VIAL IJ (21:35)
[2023-11-29] MEDS: Omnipaque 350 MG/ML 100 ML BTL IJ (21:36)
[2023-11-29 21:45] LABS: HCG Qual (Serum) Negative
[2023-11-29 21:47] LABS: Absolute Lymphocyte Count 5.77 10^3/uL (1.2-3.4); Absolute Monocyte Count 0.98 10^3/uL (0.1-0.8); Absolute Neutrophil Count 7.32 10^3/uL (1.2-6.7); Atypical Lymphocytes % 4 %
[2023-11-29 21:48] LABS: Diff Comment Manual Differential; RBC Morphology Normal
[2023-11-29 21:56] LABS: ALT 37 U/L (14-59); AST 13 U/L (15-37); Alkaline Phosphatase 131 U/L (46-116); BUN 7 mg/dL (7-18); Bilirubin, Total 0.2 mg/dL (0.2-1.0); Calcium 9.1 mg/dL (8.5-10.1); Chloride 103 mmol/L (98-107); Estimated GFR 73.04 (mL/min/1.73m2); Glucose 130 mg/dL (74-106); Magnesium 1.8 mg/dL (1.8-2.4); Potassium 3.5 mmol/L (3.5-5.1); Sodium 139 mmol/L (136-145); TSH (W/Ref FT4) 2.84 uIU/mL (0.36-3.74); Total Protein 7.9 g/dL (6.4-8.2); Troponin I < 50 ng/L (< or =60)
[2023-11-29] MEDS: Ketorolac 15 MG/ML VIAL IVP (21:59)
[2023-11-29] MEDS: diphenhydrAMINE 50 MG/ML VIAL 25 MG IVP (21:59)
[2023-11-29] MEDS: Prochlorperazine 10 MG/2 ML VIAL IVP (21:59)
[2023-11-29] MEDS: levETIRAcetam 2,000 MG in Normal Saline 100 ML 400 MG IVPB (21:59)
[2023-11-29 22:01] LABS: ETHANOL BLOOD < 3.0 mg/dL (<10)
--- NOTE | 2023-11-29 22:54 | DI.VRAD_ITS ---
PROCEDURE INFORMATION: Exam: CT Head Without Contrast Exam date and time: 11/29/2023 9:36 PM Age: 38 years old Clinical indication: Pain; Headache TECHNIQUE: Imaging protocol: Computed tomography of the head without contrast. COMPARISON: CT HEAD WO 05/12/2023 6:23 PM FINDINGS: Brain: Normal. No hemorrhage. Unremarkable white matter. No mass effect. Cerebral ventricles: No ventriculomegaly. Paranasal sinuses: Right maxillary sinus mucous retention cysts, unchanged. Other paranasal sinuses are unremarkable. Mastoid air cells: Visualized mastoid air cells are well aerated. Bones: Unremarkable. No acute fracture. Soft tissues: Unremarkable. IMPRESSION: No acute intracranial abnormality. Dictated and Authenticated by: Coy Anand MD. Ordering:MALINDA Hunt MD
--- NOTE | 2023-11-29 23:25 | DI.VRAD_ITS ---
PROCEDURE INFORMATION: Exam: CTA Chest With Contrast Exam date and time: 11/29/2023 9:42 PM Age: 38 years old Clinical indication: Other: Tachycardia; Chest wall pain; Additional info: Chest pain and tachycardia TECHNIQUE: Imaging protocol: Computed tomographic angiography of the chest with contrast. Exam focused on the arteries. 3D rendering (Not supervised by radiologist): MIP and/or 3D reconstructed images were created by the technologist. Contrast material: OMNI 350; Contrast volume: 100 ml; Contrast route: INTRAVENOUS (IV); COMPARISON: CT CHEST PE CTA 06/23/2023 3:52 PM FINDINGS: Pulmonary arteries: Normal. No pulmonary emboli. Aorta: Unremarkable. No aortic aneurysm. No aortic dissection. Lungs: Unremarkable. No consolidation. No masses. Pleural spaces: Unremarkable. No pneumothorax. No pleural effusion. Heart: Unremarkable. No cardiomegaly. No pericardial effusion. Coronary arteries: No coronary artery calcification. Lymph nodes: Unremarkable. No enlarged lymph nodes. Bones/joints: Unremarkable. No acute fracture. Soft tissues: Unremarkable. IMPRESSION: No pulmonary embolism identified. Dictated and Authenticated by: Coy Ellis MD. Ordering:MALINDA Hunt MD
== END 2023-11-29 23:33 | disposition home or self-care (01) ==
PROVIDERS: Emergency Provider Emergency Medicine; PCP Nurse Practitioner Family
DX: R07.9 Chest pain, unspecified (principal); G43.909 Migraine, unspecified, not intractable, without status migrainosus
CPT/HCPCS: 71275; 80053; 93005; 96365; 96375; 99284; 70450; 80320; 83735; 84443; 84484; 84703; 85025; 93010; 99283; J0780; J1200; J1885; J1953; J3490

== ENCOUNTER 2024-01-28 18:38 | Emergency (ER) | payer MEDICAID, SELFPAY ==
[2024-01-28 18:45] VITALS: BP 155/93; PULSE 101; RESP 16; TEMP 37.2; O2SAT 100
== END 2024-01-28 20:37 | disposition left against medical advice (07) ==
LOC: ER 18:54
PROVIDERS: PCP Nurse Practitioner Family
DX: Z53.21 Procedure and treatment not carried out due to patient leaving prior to being seen by health care provider (principal)